=== PATIENT | female | born 1950 | race Caucasian/White ===

== ENCOUNTER 2018-11-19 15:51 | Inpatient (IN) ==
[2018-11-19] MEDS ORDERED: ALBUTEROL NEB SOLN 5 MG/ML 20 ML/BOTTLE CONT NEB STA (17:14)
[2018-11-19] MEDS ORDERED: cefTRIAXone 1,000 MG in SODIUM CHLORIDE 0.9% 100 ML IV STA (17:15)
[2018-11-19] MEDS ORDERED: AZITHROMYCIN INJ 500 MG in SODIUM CHLORIDE 0.9% 250 ML IV STA (17:15)
[2018-11-19 18:01] LABS: Basophils % 0.1 % (0.0-0.8); Eosinophils # 0.1 10*3/uL (0.0-0.87); Eosinophils % 0.4 % (0.00-10.9); Hematocrit 28.3 VOL% (35.7-47.0); Immature Granulocytes % 1.2 %; Immature Granulocytes Absolute 0.16 #; Lymphocytes # 1.4 10*3/uL (1.4-4.0); Lymphocytes % 10.4 % (21.3-54.2); Mean Corpuscular HGB Conc 28.3 GM/DL (32-36); Mean Corpuscular Volume 83.7 FL (87-102); Mean Platelet Volume 10.3 FL (9.6-12.0); NRBC # 0.04 10*3/uL; Neutrophils % 81.9 % (38.7-73.9); Platelet Count 407 T/CUMM (130-400); Red Blood Count 3.38 MC/CUMM (3.8-5.5); Red Cell Distribution Width 17.1 % (9.3-17.3); White Blood Count 13.8 T/CUMM (4-12)
[2018-11-19 18:20] LABS: INR 1.1; PT Patient Result 11.4 SECS; Partial Thromboplastin Time 28.5 SECS (0-40)
[2018-11-19 18:35] LABS: Alanine Aminotransferase 165 U/L (13-56); Albumin 3.1 G/DL (3.4-5.0); Alkaline Phosphatase 137 U/L (45-117); Amylase 33 U/L (25-115); Aspartate Amino Transferase 232 U/L (0-37); Blood Urea Nitrogen 26 MG/DL (7-18); Calcium 9.6 MG/DL (8.5-10.1); Free T4 (Free Thyroxine) 0.85 NG/DL (0.76-1.46); Glucose 225 MG/DL (74-106); Osmolality,Calculated 286.7 MOS/KG (273-304); Total Protein 7.2 G/DL (6.4-8.3)
[2018-11-19 18:37] LABS: Troponin I 0.196 NG/ML (0.00-0.045)
[2018-11-19] MEDS ORDERED: FUROSEMIDE 40 MG/4 ML VIAL IV STA (19:02)
[2018-11-19 19:12] LABS: Barbiturates Screen,Urine Negative (Negative); Benzodiazepines Screen,Urine Negative (Negative); Cannabinoid Screen,Urine Negative (Negative); Opiate Screen,Urine Positive (Negative); Phencyclidine Screen,Urine Negative (Negative)
[2018-11-19 19:20] LABS: Apearance,Urine CLEAR (Clear); Bacteria,Urine Occasional /HPF (Few); Bilirubin,Urine Negative (Negative); Blood, Urine Small mg/dL (Negative); Glucose,Urine (UA) 50 mg/dL (Negative); Ketones,Urine 5 mg/dL (Negative); Mucus,Urine Occasional /LPF (Occasional); Nitrite,Urine Negative (Negative); Protein,Urine Negative; Squamous Epithelial Cell,Urine Occasional /HPF (0-10); Urine Color Straw (Yellow); Urine Urobilinogen < 2.0 EU/DL (0.2-1.0); WBC,Urine 1 /HPF (0-6)
[2018-11-19 19:58] LABS: Polychromasia 1+
[2018-11-19 19:59] LABS: Hypochromasia 2+; Poikilocytosis 2+
[2018-11-19 20:00] LABS: Ovalocytes 1+; Platelet Estimate Normal
[2018-11-19 20:01] LABS: Anisocytosis 2+
[2018-11-19] MEDS ORDERED: INSULIN GLARGINE 40 UNIT SUBCUT SCH (21:00)
[2018-11-19] MEDS ORDERED: ALBUTEROL/IPRATROPIUM 3 ML NEB RESP TX PRN (21:03)
[2018-11-19] MEDS ORDERED: GLUCAGON 1 MG VIAL IM PRN (21:05)
[2018-11-19] MEDS ORDERED: ACETAMINOPHEN 325 MG TABLET PO PRN (21:05)
[2018-11-19] MEDS ORDERED: DEXTROSE 50% 25 GM/50 ML SYRINGE IV PRN (21:05)
[2018-11-19] MEDS: GABAPENTIN 300 MG CAPSULE PO SCH (23:24)
[2018-11-19] MEDS: LEVOFLOXACIN INJ 750 MG in PREMIX 1 EACH IV SCH (23:24)
[2018-11-19] MEDS: ATORVASTATIN 20 MG TABLET PO SCH (23:25)
[2018-11-19] MEDS: ATENOLOL 50 MG TABLET PO SCH (23:25)
[2018-11-19] MEDS: FLECAINIDE 50 MG TABLET PO SCH (23:26)
[2018-11-19] MEDS: PROMETHAZINE 25 MG TABLET PO PRN (23:32)
[2018-11-20] MEDS: INSULIN LISPRO 100 UNIT/ML SUBCUT SCH ×6 (01:01→20:54)
[2018-11-20 07:04] LABS: Albumin 2.7 G/DL (3.4-5.0); Bilirubin,Total 0.6 MG/DL (0.2-1.0); Calcium 9.1 MG/DL (8.5-10.1); Osmolality,Calculated 283.7 MOS/KG (273-304); Total Protein 6.3 G/DL (6.4-8.3)
[2018-11-20] MEDS: ONDANSETRON 4 MG/2 ML VIAL IV PRN ×2 (07:30→15:59)
[2018-11-20] MEDS: MORPHINE ER 30 MG TABLET PO SCH ×2 (08:41→20:53)
[2018-11-20] MEDS: PANTOPRAZOLE 40 MG TABLET PO SCH (08:42)
[2018-11-20] MEDS: FLECAINIDE 50 MG TABLET PO SCH ×2 (08:42→20:53)
[2018-11-20] MEDS: ATENOLOL 50 MG TABLET PO SCH ×2 (08:42→20:53)
[2018-11-20] MEDS: FUROSEMIDE 40 MG/4 ML VIAL IV SCH ×2 (08:45→15:57)
[2018-11-20] MEDS: TIMOLOL 0.5% OPH SOLN 5 ML BOTTLE BOTH EYES SCH (11:14)
[2018-11-20] MEDS: DILTIAZEM 60 MG TABLET PO SCH ×3 (13:39→20:53)
[2018-11-20] MEDS ORDERED: NITROGLYCERIN SL 0.4 MG TABLET SL PRN (16:03)
[2018-11-20 17:07] LABS: Troponin I 0.103 NG/ML (0.00-0.045)
[2018-11-20] MEDS ORDERED: DIGOXIN 0.5 MG/2 ML AMP IV ONE (17:37)
[2018-11-20] MEDS ORDERED: MORPHINE 4 MG/1 ML VIAL IV ONE (17:56)
[2018-11-20] MEDS: GABAPENTIN 300 MG CAPSULE PO SCH (20:53)
[2018-11-20] MEDS: ATORVASTATIN 20 MG TABLET PO SCH (20:54)
[2018-11-20 22:18] LABS: Troponin I 0.109 NG/ML (0.00-0.045)
[2018-11-21 05:43] LABS: Albumin 2.5 G/DL (3.4-5.0); Bilirubin,Total 0.7 MG/DL (0.2-1.0); Calcium 8.7 MG/DL (8.5-10.1); Osmolality,Calculated 286.5 MOS/KG (273-304); Total Protein 5.7 G/DL (6.4-8.3)
[2018-11-21 06:43] LABS: Basophils % 0.4 % (0.0-0.8); Eosinophils # 0.3 10*3/uL (0.0-0.87); Eosinophils % 3.2 % (0.00-10.9); Hematocrit 24.8 VOL% (35.7-47.0); Hemoglobin 6.7 GM/DL (12.0-16.0); Immature Granulocytes % 0.6 %; Immature Granulocytes Absolute 0.06 #; Lymphocytes # 3.1 10*3/uL (1.4-4.0); Lymphocytes % 30.4 % (21.3-54.2); Mean Corpuscular Volume 84.6 FL (87-102); Mean Platelet Volume 10.4 FL (9.6-12.0); Monocytes % 7.7 % (1.7-12.7); NRBC # 0.14 10*3/uL; Neutrophils % 57.7 % (38.7-73.9); Platelet Count 311 T/CUMM (130-400); Red Blood Count 2.93 MC/CUMM (3.8-5.5); Red Cell Distribution Width 16.9 % (9.3-17.3); White Blood Count 10.3 T/CUMM (4-12)
[2018-11-21] MEDS: INSULIN LISPRO 100 UNIT/ML SUBCUT SCH ×4 (08:00→21:08)
[2018-11-21 08:48] LABS: Hemoglobin 7.9 GM/DL (12.0-16.0)
[2018-11-21 09:10] LABS: % Iron Saturation 5.3 % (18-50)
[2018-11-21] MEDS: MORPHINE ER 30 MG TABLET PO SCH ×2 (09:11→21:08)
[2018-11-21] MEDS: PANTOPRAZOLE 40 MG TABLET PO SCH (09:11)
[2018-11-21] MEDS: FLECAINIDE 50 MG TABLET PO SCH ×2 (09:12→21:07)
[2018-11-21] MEDS: FUROSEMIDE 40 MG/4 ML VIAL IV SCH ×2 (09:12→16:36)
[2018-11-21] MEDS: ATENOLOL 50 MG TABLET PO SCH ×2 (09:12→21:08)
[2018-11-21] MEDS: TIMOLOL 0.5% OPH SOLN 5 ML BOTTLE BOTH EYES SCH (09:16)
[2018-11-21] MEDS: DILTIAZEM 60 MG TABLET PO SCH ×4 (09:17→21:07)
[2018-11-21 09:21] LABS: Hypochromasia 3+; Microcytosis 1+; Ovalocytes Slight; Platelet Estimate Normal; Polychromasia Slight
[2018-11-21 09:26] LABS: Folate 15.8 NG/ML (5.4-24.0)
[2018-11-21] MEDS: ONDANSETRON 4 MG/2 ML VIAL IV PRN ×2 (13:36→22:37)
[2018-11-21] MEDS: ATORVASTATIN 20 MG TABLET PO SCH (21:07)
[2018-11-21] MEDS: GABAPENTIN 300 MG CAPSULE PO SCH (21:08)
[2018-11-21] MEDS: APIXABAN 5 MG TABLET PO SCH (21:09)
[2018-11-21] MEDS: LEVOFLOXACIN INJ 750 MG in PREMIX 1 EACH IV SCH (21:25)
[2018-11-22 03:27] LABS: Basophils % 0.4 % (0.0-0.8); Eosinophils # 0.4 10*3/uL (0.0-0.87); Eosinophils % 4.2 % (0.00-10.9); Immature Granulocytes % 0.7 %; Immature Granulocytes Absolute 0.07 #; Lymphocytes # 3.1 10*3/uL (1.4-4.0); Lymphocytes % 31.4 % (21.3-54.2); Mean Corpuscular HGB Conc 27.2 GM/DL (32-36); Mean Corpuscular Volume 83.5 FL (87-102); Mean Platelet Volume 10.7 FL (9.6-12.0); Monocytes % 11.2 % (1.7-12.7); NRBC # 0.06 10*3/uL; Neutrophils % 52.1 % (38.7-73.9); Platelet Count 292 T/CUMM (130-400); Red Blood Count 2.78 MC/CUMM (3.8-5.5); Red Cell Distribution Width 16.8 % (9.3-17.3); White Blood Count 9.7 T/CUMM (4-12)
[2018-11-22 03:40] LABS: Albumin 2.2 G/DL (3.4-5.0); Bilirubin,Total 0.5 MG/DL (0.2-1.0); Calcium 8.3 MG/DL (8.5-10.1); Osmolality,Calculated 278.2 MOS/KG (273-304); Total Protein 5.4 G/DL (6.4-8.3)
[2018-11-22 03:55] LABS: Hematocrit 22.6 VOL% (35.7-47.0)
[2018-11-22 03:58] LABS: Hemoglobin 6.3 GM/DL (12.0-16.0)
[2018-11-22] MEDS ORDERED: SODIUM CHLORIDE 0.9% 1,000 ML IV PRN (06:59)
[2018-11-22] MEDS: ONDANSETRON 4 MG/2 ML VIAL IV PRN (09:23)
[2018-11-22] MEDS: INSULIN LISPRO 100 UNIT/ML SUBCUT SCH ×4 (09:23→21:27)
[2018-11-22] MEDS: FUROSEMIDE 40 MG/4 ML VIAL IV SCH ×2 (09:24→16:30)
[2018-11-22] MEDS: DILTIAZEM 60 MG TABLET PO SCH ×4 (09:25→21:22)
[2018-11-22] MEDS: TIMOLOL 0.5% OPH SOLN 5 ML BOTTLE BOTH EYES SCH (09:25)
[2018-11-22] MEDS: MORPHINE ER 30 MG TABLET PO SCH ×2 (09:25→21:23)
[2018-11-22] MEDS: ATENOLOL 50 MG TABLET PO SCH ×2 (09:26→21:23)
[2018-11-22] MEDS: PANTOPRAZOLE 40 MG TABLET PO SCH (09:26)
[2018-11-22] MEDS: FLECAINIDE 50 MG TABLET PO SCH ×2 (09:26→21:23)
[2018-11-22] MEDS: APIXABAN 5 MG TABLET PO SCH ×2 (09:26→21:23)
[2018-11-22 15:01] LABS: Hematocrit 26.7 VOL% (35.7-47.0); Hemoglobin 7.6 GM/DL (12.0-16.0)
[2018-11-22] MEDS: GABAPENTIN 300 MG CAPSULE PO SCH (21:22)
[2018-11-22] MEDS: ATORVASTATIN 20 MG TABLET PO SCH (21:23)
[2018-11-23 05:40] LABS: Calcium 8.6 MG/DL (8.5-10.1); Osmolality,Calculated 286.4 MOS/KG (273-304)
[2018-11-23 07:41] LABS: Basophils % 0.3 % (0.0-0.8); Eosinophils # 0.4 10*3/uL (0.0-0.87); Eosinophils % 3.5 % (0.00-10.9); Hematocrit 26.4 VOL% (35.7-47.0); Hemoglobin 7.6 GM/DL (12.0-16.0); Immature Granulocytes % 0.7 %; Immature Granulocytes Absolute 0.07 #; Lymphocytes # 2.5 10*3/uL (1.4-4.0); Lymphocytes % 23.2 % (21.3-54.2); Mean Corpuscular HGB Conc 28.8 GM/DL (32-36); Mean Platelet Volume 10.8 FL (9.6-12.0); Monocytes % 8.5 % (1.7-12.7); NRBC # 0.04 10*3/uL; Neutrophils % 63.8 % (38.7-73.9); Platelet Count 257 T/CUMM (130-400); Red Blood Count 3.18 MC/CUMM (3.8-5.5); Red Cell Distribution Width 16.3 % (9.3-17.3); White Blood Count 10.6 T/CUMM (4-12)
[2018-11-23 08:07] LABS: Hypochromasia 1+; Microcytosis 1+
[2018-11-23 08:08] LABS: Ovalocytes Slight
[2018-11-23 08:09] LABS: Platelet Estimate Normal; Polychromasia Slight; Tear Drop Cells Slight
[2018-11-23] MEDS: INSULIN LISPRO 100 UNIT/ML SUBCUT SCH ×5 (09:17→20:52)
[2018-11-23] MEDS: FUROSEMIDE 40 MG/4 ML VIAL IV SCH ×2 (10:36→20:51)
[2018-11-23] MEDS: TIMOLOL 0.5% OPH SOLN 5 ML BOTTLE BOTH EYES SCH (10:37)
[2018-11-23] MEDS: MORPHINE ER 30 MG TABLET PO SCH ×2 (10:37→20:55)
[2018-11-23] MEDS: ATENOLOL 50 MG TABLET PO SCH ×2 (10:37→20:54)
[2018-11-23] MEDS: DILTIAZEM 60 MG TABLET PO SCH ×4 (10:38→20:54)
[2018-11-23] MEDS: PANTOPRAZOLE 40 MG TABLET PO SCH (10:38)
[2018-11-23] MEDS: IRON SUCROSE 200 MG in SODIUM CHLORIDE 0.9% 100 ML IV SCH (10:56)
[2018-11-23] MEDS: ONDANSETRON 4 MG/2 ML VIAL IV PRN ×3 (10:57→22:07)
[2018-11-23] MEDS ORDERED: SODIUM CHLORIDE 0.9% 1,000 ML IV PRN (15:08)
[2018-11-23] MEDS: LEVOFLOXACIN INJ 750 MG in PREMIX 1 EACH IV SCH (20:50)
[2018-11-23] MEDS: INSULIN GLARGINE 100 UNIT/ML SUBCUT SCH (20:52)
[2018-11-23] MEDS: GABAPENTIN 300 MG CAPSULE PO SCH (20:53)
[2018-11-23] MEDS: ATORVASTATIN 20 MG TABLET PO SCH (20:54)
[2018-11-23 23:54] LABS: Hematocrit 30.5 VOL% (35.7-47.0); Hemoglobin 8.9 GM/DL (12.0-16.0)
[2018-11-24 05:47] LABS: Basophils % 0.3 % (0.0-0.8); Eosinophils # 0.3 10*3/uL (0.0-0.87); Eosinophils % 2.7 % (0.00-10.9); Hematocrit 32.2 VOL% (35.7-47.0); Hemoglobin 9.4 GM/DL (12.0-16.0); Immature Granulocytes % 0.7 %; Immature Granulocytes Absolute 0.09 #; Lymphocytes # 2.4 10*3/uL (1.4-4.0); Lymphocytes % 19.2 % (21.3-54.2); Mean Corpuscular HGB Conc 29.2 GM/DL (32-36); Mean Corpuscular Volume 86.6 FL (87-102); Mean Platelet Volume 11.3 FL (9.6-12.0); Monocytes % 8.8 % (1.7-12.7); NRBC # 0.08 10*3/uL; Neutrophils % 68.3 % (38.7-73.9); Platelet Count 266 T/CUMM (130-400); Red Blood Count 3.72 MC/CUMM (3.8-5.5); Red Cell Distribution Width 16.7 % (9.3-17.3); White Blood Count 12.5 T/CUMM (4-12)
[2018-11-24 06:08] LABS: Calcium 8.6 MG/DL (8.5-10.1); Osmolality,Calculated 274.4 MOS/KG (273-304)
[2018-11-24] MEDS ORDERED: MAGNESIUM SULF RIDER 2 GM in PREMIX 1 EACH IV PRN (08:22)
[2018-11-24] MEDS: ATENOLOL 50 MG TABLET PO SCH ×2 (08:50→21:19)
[2018-11-24] MEDS: PANTOPRAZOLE 40 MG TABLET PO SCH (08:50)
[2018-11-24] MEDS: MORPHINE ER 30 MG TABLET PO SCH ×2 (08:50→21:19)
[2018-11-24] MEDS: DILTIAZEM 60 MG TABLET PO SCH ×3 (08:50→21:18)
[2018-11-24] MEDS: INSULIN LISPRO 100 UNIT/ML SUBCUT SCH ×4 (08:51→21:20)
[2018-11-24] MEDS: POTASSIUM CHLORIDE 20 MEQ TABLET PO PRN ×2 (08:51→16:09)
[2018-11-24] MEDS: FUROSEMIDE 40 MG/4 ML VIAL IV SCH ×2 (08:52→16:09)
[2018-11-24] MEDS: IRON SUCROSE 200 MG in SODIUM CHLORIDE 0.9% 100 ML IV SCH (08:54)
[2018-11-24] MEDS: TIMOLOL 0.5% OPH SOLN 5 ML BOTTLE BOTH EYES SCH (08:56)
[2018-11-24] MEDS: ONDANSETRON 4 MG/2 ML VIAL IV PRN (08:56)
[2018-11-24] MEDS ORDERED: POTASSIUM CHLORIDE 20 MEQ TABLET PO ONE (10:34)
[2018-11-24] MEDS ORDERED: POTASSIUM CHLORIDE 20 MEQ TABLET PO SCH (21:00)
[2018-11-24] MEDS: ATORVASTATIN 10 MG TABLET PO SCH (21:18)
[2018-11-24] MEDS: GABAPENTIN 300 MG CAPSULE PO SCH (21:19)
[2018-11-24] MEDS: INSULIN GLARGINE 100 UNIT/ML SUBCUT SCH (21:19)
[2018-11-25 05:22] LABS: Calcium 9.2 MG/DL (8.5-10.1); Osmolality,Calculated 289.7 MOS/KG (273-304)
[2018-11-25 07:56] LABS: Basophils % 0.3 % (0.0-0.8); Eosinophils # 0.2 10*3/uL (0.0-0.87); Eosinophils % 1.5 % (0.00-10.9); Hematocrit 31.6 VOL% (35.7-47.0); Hemoglobin 9.3 GM/DL (12.0-16.0); Immature Granulocytes % 0.8 %; Immature Granulocytes Absolute 0.08 #; Lymphocytes % 20.4 % (21.3-54.2); Mean Corpuscular HGB Conc 29.4 GM/DL (32-36); Mean Corpuscular Volume 85.2 FL (87-102); Mean Platelet Volume 11.1 FL (9.6-12.0); Monocytes % 9.5 % (1.7-12.7); NRBC # 0.03 10*3/uL; Neutrophils % 67.5 % (38.7-73.9); Platelet Count 256 T/CUMM (130-400); Red Blood Count 3.71 MC/CUMM (3.8-5.5); Red Cell Distribution Width 17.2 % (9.3-17.3); White Blood Count 9.8 T/CUMM (4-12)
[2018-11-25] MEDS ORDERED: LACTATED RINGERS 1,000 ML IV SCH (08:00)
[2018-11-25] MEDS ORDERED: LACTATED RINGERS 500 ML IV SCH (08:00)
[2018-11-25] MEDS: ATENOLOL 50 MG TABLET PO SCH (08:27)
[2018-11-25] MEDS: FUROSEMIDE 40 MG/4 ML VIAL IV SCH (08:28)
[2018-11-25] MEDS: IRON SUCROSE 200 MG in SODIUM CHLORIDE 0.9% 100 ML IV SCH (08:30)
[2018-11-25] MEDS: MORPHINE ER 30 MG TABLET PO SCH (08:34)
[2018-11-25] MEDS: TIMOLOL 0.5% OPH SOLN 5 ML BOTTLE BOTH EYES SCH (08:34)
[2018-11-25] MEDS: PANTOPRAZOLE 40 MG TABLET PO SCH (08:34)
[2018-11-25] MEDS: INSULIN LISPRO 100 UNIT/ML SUBCUT SCH ×3 (08:34→16:07)
[2018-11-25] MEDS ORDERED: DILTIAZEM 60 MG TABLET PO SCH (09:00)
[2018-11-25] MEDS: DILTIAZEM CD 120 MG CAPSULE PO SCH (09:35)
[2018-11-25] MEDS ORDERED: LIDOCAINE 2% 5 ML VIAL ONE (10:00)
[2018-11-25] MEDS ORDERED: ONDANSETRON 4 MG/2 ML VIAL ONE (10:00)
[2018-11-25] MEDS ORDERED: PROPOFOL 200 MG/20 ML VIAL IV ONE (10:00)
[2018-11-26] MEDS: INSULIN LISPRO 100 UNIT/ML SUBCUT SCH ×5 (00:32→21:49)
[2018-11-26] MEDS: INSULIN GLARGINE 100 UNIT/ML SUBCUT SCH ×2 (00:32→21:49)
[2018-11-26] MEDS: ATORVASTATIN 10 MG TABLET PO SCH ×2 (00:33→21:50)
[2018-11-26] MEDS: MORPHINE ER 30 MG TABLET PO SCH ×3 (00:33→21:50)
[2018-11-26] MEDS: GABAPENTIN 300 MG CAPSULE PO SCH ×2 (00:33→21:50)
[2018-11-26] MEDS: LEVOFLOXACIN INJ 750 MG in PREMIX 1 EACH IV SCH (00:34)
[2018-11-26] MEDS: DILTIAZEM CD 120 MG CAPSULE PO SCH (08:21)
[2018-11-26] MEDS: PANTOPRAZOLE 40 MG TABLET PO SCH (08:21)
[2018-11-26] MEDS: ATENOLOL 50 MG TABLET PO SCH (08:21)
[2018-11-26] MEDS: FUROSEMIDE 20 MG TABLET PO SCH (08:22)
[2018-11-26] MEDS: TIMOLOL 0.5% OPH SOLN 5 ML BOTTLE BOTH EYES SCH (08:24)
[2018-11-26] MEDS ORDERED: FUROSEMIDE 40 MG TABLET PO SCH (09:00)
[2018-11-26] MEDS: PROMETHAZINE 25 MG TABLET PO PRN (09:17)
[2018-11-26] MEDS: IRON SUCROSE 200 MG in SODIUM CHLORIDE 0.9% 100 ML IV SCH (09:53)
[2018-11-27] MEDS: FUROSEMIDE 20 MG TABLET PO SCH (08:37)
[2018-11-27] MEDS: MORPHINE ER 30 MG TABLET PO SCH (08:37)
[2018-11-27] MEDS: DILTIAZEM CD 120 MG CAPSULE PO SCH (08:38)
[2018-11-27] MEDS: PANTOPRAZOLE 40 MG TABLET PO SCH (08:39)
[2018-11-27] MEDS: ATENOLOL 50 MG TABLET PO SCH (08:39)
[2018-11-27] MEDS: INSULIN LISPRO 100 UNIT/ML SUBCUT SCH ×3 (08:39→15:58)
[2018-11-27] MEDS: TIMOLOL 0.5% OPH SOLN 5 ML BOTTLE BOTH EYES SCH (08:43)
[2018-11-27] MEDS: IRON SUCROSE 200 MG in SODIUM CHLORIDE 0.9% 100 ML IV SCH (08:44)
[2018-11-27 16:07] VITALS: BP 133/86
== END 2018-11-27 18:15 | disposition home health service (06) | DRG 871 ==
LOC: EDBD → EDUNIT# → N.ED 15:51 → SUPCPDRO 20:03 → N.EDINP 20:03 → SUATTDRO 20:03 → N.TELEN 21:40
PROVIDERS: ADMIT Internal Medicine; ATTEND Internal Medicine

== ENCOUNTER 2019-05-17 09:19 | Inpatient (IN) ==
[2019-05-17] MEDS ORDERED: FUROSEMIDE 100 MG/10 ML VIAL IV STA (09:41)
[2019-05-17 10:00] LABS: Basophils % 0.2 % (0.0-0.8); Eosinophils % 0.1 % (0.00-10.9); Hematocrit 35.8 VOL% (35.7-47.0); Hemoglobin 10.6 GM/DL (12.0-16.0); Immature Granulocytes % 2.9 %; Immature Granulocytes Absolute 0.42 #; Lymphocytes # 1.9 10*3/uL (1.4-4.0); Lymphocytes % 13.1 % (21.3-54.2); Mean Corpuscular HGB Conc 29.6 GM/DL (32-36); Mean Platelet Volume 9.7 FL (9.6-12.0); Monocytes % 4.4 % (1.7-12.7); Neutrophils % 79.3 % (38.7-73.9); Platelet Count 315 T/CUMM (130-400); Red Blood Count 3.85 MC/CUMM (3.8-5.5); Red Cell Distribution Width 15.8 % (9.3-17.3); White Blood Count 14.3 T/CUMM (4-12)
[2019-05-17 10:18] LABS: Albumin 3.4 G/DL (3.4-5.0); Bilirubin,Total 0.7 MG/DL (0.2-1.0); Calcium 9.3 MG/DL (8.5-10.1); Total Protein 6.3 G/DL (6.4-8.3)
[2019-05-17 10:20] LABS: Apearance,Urine CLEAR (Clear); Bilirubin,Urine Negative (Negative); Blood, Urine Negative (Negative); Glucose,Urine (UA) Negative (Negative); Ketones,Urine Negative (Negative); Mucus,Urine Occasional /LPF (Occasional); Nitrite,Urine Negative (Negative); Protein,Urine 30 MG/DL; Squamous Epithelial Cell,Urine Occasional /HPF (0-10); Urine Color Yellow (Yellow); Urine Specific Gravity 1.025 (1.001-1.035); Urine Urobilinogen < 2.0 EU/DL (0.2-1.0); WBC,Urine 1 /HPF (0-6)
[2019-05-17] MEDS ORDERED: DEXTROSE 5% NACL 0.9% 1,000 ML IV SCH (10:30)
[2019-05-17] MEDS ORDERED: ONDANSETRON 4 MG/2 ML VIAL IV PRN (12:03)
[2019-05-17] MEDS ORDERED: ACETAMINOPHEN 325 MG TABLET PO PRN (12:03)
[2019-05-17] MEDS ORDERED: NYSTATIN 500,000 UNIT/5 ML UDCUP SWISH/SWAL STA (13:27)
[2019-05-17] MEDS ORDERED: DEXTROSE 10% 25 GM/250 ML BAG IV PRN (16:50)
[2019-05-17] MEDS ORDERED: GLUCAGON 1 MG VIAL IM PRN (16:50)
[2019-05-17] MEDS ORDERED: cefTRIAXone 1,000 MG in SODIUM CHLORIDE 0.9% 100 ML IV SCH (17:00)
[2019-05-17] MEDS ORDERED: AZITHROMYCIN INJ 500 MG in SODIUM CHLORIDE 0.9% 250 ML IV SCH (17:00)
[2019-05-17] MEDS ORDERED: NITROGLYCERIN SL 0.4 MG TABLET SL PRN (17:12)
[2019-05-17] MEDS ORDERED: ALBUTEROL 2.5 MG/3 ML NEB RESP TX PRN ×2 (17:12→17:30)
[2019-05-17] MEDS: ATENOLOL 50 MG TABLET PO SCH (20:48)
[2019-05-17] MEDS: APIXABAN 5 MG TABLET PO SCH (20:49)
[2019-05-17] MEDS: INSULIN LISPRO 100 UNIT/ML SUBCUT SCH (21:23)
[2019-05-18 04:11] LABS: Basophils % 0.1 % (0.0-0.8); Eosinophils % 0.1 % (0.00-10.9); Hematocrit 31.1 VOL% (35.7-47.0); Hemoglobin 9.1 GM/DL (12.0-16.0); Immature Granulocytes % 1.5 %; Immature Granulocytes Absolute 0.11 #; Lymphocytes # 1.4 10*3/uL (1.4-4.0); Lymphocytes % 18.9 % (21.3-54.2); Mean Corpuscular HGB Conc 29.3 GM/DL (32-36); Mean Corpuscular Volume 95.1 FL (87-102); Mean Platelet Volume 10.1 FL (9.6-12.0); Monocytes % 7.8 % (1.7-12.7); Neutrophils % 71.6 % (38.7-73.9); Platelet Count 195 T/CUMM (130-400); Red Blood Count 3.27 MC/CUMM (3.8-5.5); Red Cell Distribution Width 15.9 % (9.3-17.3); White Blood Count 7.3 T/CUMM (4-12)
[2019-05-18 04:22] LABS: Calcium 8.3 MG/DL (8.5-10.1); Osmolality,Calculated 298.4 MOS/KG (273-304); Risk Ratio 2.83; VLDL CHOLESTEROL 47.8 MG/DL
[2019-05-18 04:29] LABS: Hypochromasia 2+; Ovalocytes 1+; Platelet Estimate Normal; Tear Drop Cells Few
[2019-05-18] MEDS ORDERED: predniSONE 20 MG TABLET PO SCH (08:00)
[2019-05-18] MEDS: AMIODARONE 200 MG TABLET PO SCH (09:59)
[2019-05-18] MEDS: ATENOLOL 50 MG TABLET PO SCH ×2 (10:00→20:14)
[2019-05-18] MEDS: INSULIN LISPRO 100 UNIT/ML SUBCUT SCH ×4 (10:01→20:16)
[2019-05-18] MEDS: FUROSEMIDE 40 MG/4 ML VIAL IV SCH ×2 (10:01→16:23)
[2019-05-18] MEDS: APIXABAN 5 MG TABLET PO SCH ×2 (10:01→20:14)
[2019-05-18] MEDS: PANTOPRAZOLE 40 MG TABLET PO SCH (10:01)
[2019-05-18] MEDS: AZITHROMYCIN INJ 500 MG in SODIUM CHLORIDE 0.9% 250 ML IV SCH (10:02)
[2019-05-18] MEDS: TIMOLOL 0.5% OPH SOLN 5 ML BOTTLE BOTH EYES SCH (10:15)
[2019-05-18] MEDS: cefTRIAXone 1,000 MG in SYRINGE 1 EACH IV SCH (10:16)
[2019-05-18] MEDS: ALBUTEROL/IPRATROPIUM 3 ML NEB RESP TX SCH (19:18)
[2019-05-18] MEDS: INSULIN GLARGINE 100 UNIT/ML SUBCUT SCH (20:15)
[2019-05-19] MEDS: ALBUTEROL/IPRATROPIUM 3 ML NEB RESP TX SCH ×6 (00:46→18:50)
[2019-05-19 03:37] LABS: Basophils % 0.1 % (0.0-0.8); Eosinophils % 0.1 % (0.00-10.9); Hemoglobin 9.8 GM/DL (12.0-16.0); Immature Granulocytes % 1.9 %; Immature Granulocytes Absolute 0.18 #; Lymphocytes # 1.7 10*3/uL (1.4-4.0); Lymphocytes % 18.7 % (21.3-54.2); Mean Corpuscular HGB Conc 29.7 GM/DL (32-36); Mean Corpuscular Volume 91.9 FL (87-102); Mean Platelet Volume 9.6 FL (9.6-12.0); Neutrophils % 72.2 % (38.7-73.9); Platelet Count 206 T/CUMM (130-400); Red Blood Count 3.59 MC/CUMM (3.8-5.5); Red Cell Distribution Width 15.5 % (9.3-17.3); White Blood Count 9.2 T/CUMM (4-12)
[2019-05-19 03:50] LABS: Calcium 8.7 MG/DL (8.5-10.1); Osmolality,Calculated 291.7 MOS/KG (273-304)
[2019-05-19 04:00] LABS: Free T4 (Free Thyroxine) 0.7 NG/DL (0.76-1.46); Thyroid Stimulating Hormone 0.64 uIU/ml (0.358-3.74)
[2019-05-19] MEDS: INSULIN LISPRO 100 UNIT/ML SUBCUT SCH ×4 (08:33→21:03)
[2019-05-19] MEDS: APIXABAN 5 MG TABLET PO SCH ×2 (09:28→21:04)
[2019-05-19] MEDS: ATENOLOL 50 MG TABLET PO SCH ×2 (09:29→21:04)
[2019-05-19] MEDS: PANTOPRAZOLE 40 MG TABLET PO SCH (09:29)
[2019-05-19] MEDS: AMIODARONE 200 MG TABLET PO SCH (09:29)
[2019-05-19] MEDS: predniSONE 10 MG TABLET PO SCH (09:29)
[2019-05-19] MEDS: cefTRIAXone 1,000 MG in SYRINGE 1 EACH IV SCH (09:30)
[2019-05-19] MEDS: AZITHROMYCIN INJ 500 MG in SODIUM CHLORIDE 0.9% 250 ML IV SCH (09:30)
[2019-05-19] MEDS: FUROSEMIDE 40 MG/4 ML VIAL IV SCH ×2 (09:30→16:32)
[2019-05-19] MEDS: TIMOLOL 0.5% OPH SOLN 5 ML BOTTLE BOTH EYES SCH (09:31)
[2019-05-19] MEDS: NYSTATIN 500,000 UNIT/5 ML UDCUP SWISH/SWAL SCH ×2 (16:31→21:03)
[2019-05-19] MEDS: INSULIN GLARGINE 100 UNIT/ML SUBCUT SCH (21:03)
[2019-05-20] MEDS: ALBUTEROL/IPRATROPIUM 3 ML NEB RESP TX SCH ×7 (00:02→23:39)
[2019-05-20 08:47] LABS: Basophils % 0.1 % (0.0-0.8); Eosinophils # 0.1 10*3/uL (0.0-0.87); Eosinophils % 0.6 % (0.00-10.9); Hematocrit 36.8 VOL% (35.7-47.0); Immature Granulocytes % 1.5 %; Immature Granulocytes Absolute 0.16 #; Lymphocytes # 2.4 10*3/uL (1.4-4.0); Lymphocytes % 22.6 % (21.3-54.2); Mean Corpuscular HGB Conc 29.9 GM/DL (32-36); Mean Platelet Volume 9.5 FL (9.6-12.0); Monocytes % 7.2 % (1.7-12.7); Platelet Count 229 T/CUMM (130-400); Red Cell Distribution Width 15.4 % (9.3-17.3); White Blood Count 10.6 T/CUMM (4-12)
[2019-05-20 08:55] LABS: Calcium 8.9 MG/DL (8.5-10.1)
[2019-05-20] MEDS: PANTOPRAZOLE 40 MG TABLET PO SCH (09:31)
[2019-05-20] MEDS: AMIODARONE 200 MG TABLET PO SCH (09:31)
[2019-05-20] MEDS: predniSONE 10 MG TABLET PO SCH (09:31)
[2019-05-20] MEDS: INSULIN LISPRO 100 UNIT/ML SUBCUT SCH ×4 (09:31→21:04)
[2019-05-20] MEDS: FUROSEMIDE 40 MG/4 ML VIAL IV SCH ×2 (09:31→16:30)
[2019-05-20] MEDS: ATENOLOL 50 MG TABLET PO SCH ×2 (09:31→21:04)
[2019-05-20] MEDS: NYSTATIN 500,000 UNIT/5 ML UDCUP SWISH/SWAL SCH ×4 (09:32→21:03)
[2019-05-20] MEDS: cefTRIAXone 1,000 MG in SYRINGE 1 EACH IV SCH (09:32)
[2019-05-20] MEDS: TIMOLOL 0.5% OPH SOLN 5 ML BOTTLE BOTH EYES SCH (09:40)
[2019-05-20] MEDS: AZITHROMYCIN INJ 500 MG in SODIUM CHLORIDE 0.9% 250 ML IV SCH (09:40)
[2019-05-20] MEDS: INSULIN GLARGINE 100 UNIT/ML SUBCUT SCH (21:04)
[2019-05-21] MEDS: ALBUTEROL/IPRATROPIUM 3 ML NEB RESP TX SCH ×5 (03:20→21:10)
[2019-05-21 05:30] LABS: Basophils % 0.1 % (0.0-0.8); Eosinophils # 0.1 10*3/uL (0.0-0.87); Eosinophils % 0.7 % (0.00-10.9); Hematocrit 33.5 VOL% (35.7-47.0); Hemoglobin 10.1 GM/DL (12.0-16.0); Immature Granulocytes % 1.8 %; Immature Granulocytes Absolute 0.15 #; Lymphocytes # 1.6 10*3/uL (1.4-4.0); Lymphocytes % 18.7 % (21.3-54.2); Mean Corpuscular HGB Conc 30.1 GM/DL (32-36); Mean Platelet Volume 9.5 FL (9.6-12.0); Monocytes % 7.2 % (1.7-12.7); Neutrophils % 71.5 % (38.7-73.9); Platelet Count 199 T/CUMM (130-400); Red Blood Count 3.68 MC/CUMM (3.8-5.5); Red Cell Distribution Width 15.4 % (9.3-17.3); White Blood Count 8.4 T/CUMM (4-12)
[2019-05-21 05:50] LABS: Calcium 8.9 MG/DL (8.5-10.1); Osmolality,Calculated 302.5 MOS/KG (273-304)
[2019-05-21] MEDS: AMIODARONE 200 MG TABLET PO SCH (09:57)
[2019-05-21] MEDS: PANTOPRAZOLE 40 MG TABLET PO SCH (09:57)
[2019-05-21] MEDS: ATENOLOL 50 MG TABLET PO SCH ×2 (09:58→21:40)
[2019-05-21] MEDS: INSULIN LISPRO 100 UNIT/ML SUBCUT SCH ×4 (09:58→21:39)
[2019-05-21] MEDS: FUROSEMIDE 40 MG/4 ML VIAL IV SCH ×2 (09:58→17:04)
[2019-05-21] MEDS: predniSONE 10 MG TABLET PO SCH (09:58)
[2019-05-21] MEDS: NYSTATIN 500,000 UNIT/5 ML UDCUP SWISH/SWAL SCH ×4 (09:59→21:41)
[2019-05-21] MEDS: cefTRIAXone 1,000 MG in SYRINGE 1 EACH IV SCH (09:59)
[2019-05-21] MEDS: AZITHROMYCIN INJ 500 MG in SODIUM CHLORIDE 0.9% 250 ML IV SCH (09:59)
[2019-05-21] MEDS: TIMOLOL 0.5% OPH SOLN 5 ML BOTTLE BOTH EYES SCH (10:00)
[2019-05-21] MEDS: INSULIN GLARGINE 100 UNIT/ML SUBCUT SCH (21:39)
[2019-05-22] MEDS: ALBUTEROL/IPRATROPIUM 3 ML NEB RESP TX SCH ×6 (00:33→19:57)
[2019-05-22 05:59] LABS: Calcium 9.2 MG/DL (8.5-10.1); Osmolality,Calculated 294.7 MOS/KG (273-304)
[2019-05-22 06:33] LABS: Basophils % 0.1 % (0.0-0.8); Eosinophils # 0.1 10*3/uL (0.0-0.87); Eosinophils % 0.6 % (0.00-10.9); Hemoglobin 10.5 GM/DL (12.0-16.0); Immature Granulocytes Absolute 0.19 #; Lymphocytes # 1.8 10*3/uL (1.4-4.0); Lymphocytes % 19.4 % (21.3-54.2); Mean Corpuscular Volume 91.6 FL (87-102); Mean Platelet Volume 9.6 FL (9.6-12.0); Monocytes % 6.1 % (1.7-12.7); Neutrophils % 71.8 % (38.7-73.9); Platelet Count 199 T/CUMM (130-400); Red Blood Count 3.82 MC/CUMM (3.8-5.5); Red Cell Distribution Width 15.4 % (9.3-17.3); White Blood Count 9.4 T/CUMM (4-12)
[2019-05-22] MEDS: AZITHROMYCIN 250 MG TABLET PO SCH (09:50)
[2019-05-22] MEDS: ATENOLOL 50 MG TABLET PO SCH ×2 (09:50→21:18)
[2019-05-22] MEDS: predniSONE 10 MG TABLET PO SCH (09:51)
[2019-05-22] MEDS: AMIODARONE 200 MG TABLET PO SCH (09:51)
[2019-05-22] MEDS: cefTRIAXone 1,000 MG in SYRINGE 1 EACH IV SCH (09:51)
[2019-05-22] MEDS: PANTOPRAZOLE 40 MG TABLET PO SCH (09:51)
[2019-05-22] MEDS: INSULIN LISPRO 100 UNIT/ML SUBCUT SCH ×4 (09:52→21:33)
[2019-05-22] MEDS: NYSTATIN 500,000 UNIT/5 ML UDCUP SWISH/SWAL SCH ×4 (10:00→21:24)
[2019-05-22] MEDS: FUROSEMIDE 40 MG/4 ML VIAL IV SCH (10:05)
[2019-05-22] MEDS: TIMOLOL 0.5% OPH SOLN 5 ML BOTTLE BOTH EYES SCH (10:06)
[2019-05-22] MEDS ORDERED: BISACODYL 5 MG TABLET PO ONE (15:30)
[2019-05-22] MEDS: FUROSEMIDE 40 MG TABLET PO SCH (16:38)
[2019-05-22] MEDS: POLYETHYLENE GLYCOL POWDER 17 GM PACK PO SCH (21:23)
[2019-05-22] MEDS: DOCUSATE SODIUM 100 MG CAPSULE PO SCH (21:24)
[2019-05-22] MEDS: INSULIN GLARGINE 100 UNIT/ML SUBCUT SCH (21:31)
[2019-05-23] MEDS: ALBUTEROL/IPRATROPIUM 3 ML NEB RESP TX SCH ×5 (00:05→16:05)
[2019-05-23 06:29] LABS: Osmolality,Calculated 296.5 MOS/KG (273-304)
[2019-05-23 06:40] LABS: Basophils % 0.1 % (0.0-0.8); Eosinophils # 0.1 10*3/uL (0.0-0.87); Hematocrit 35.9 VOL% (35.7-47.0); Immature Granulocytes Absolute 0.19 #; Lymphocytes # 1.7 10*3/uL (1.4-4.0); Lymphocytes % 17.6 % (21.3-54.2); Mean Corpuscular HGB Conc 29.5 GM/DL (32-36); Mean Corpuscular Volume 92.1 FL (87-102); Monocytes % 6.1 % (1.7-12.7); Neutrophils % 73.2 % (38.7-73.9); Platelet Count 207 T/CUMM (130-400); Red Cell Distribution Width 15.3 % (9.3-17.3); White Blood Count 9.4 T/CUMM (4-12)
[2019-05-23 06:47] LABS: Hemoglobin 10.6 GM/DL (12.0-16.0)
[2019-05-23] MEDS ORDERED: LACTATED RINGERS 1,000 ML IV SCH (08:00)
[2019-05-23] MEDS: INSULIN LISPRO 100 UNIT/ML SUBCUT SCH ×3 (08:23→17:26)
[2019-05-23] MEDS ORDERED: LIDOCAINE 2% 5 ML VIAL ONE (10:00)
[2019-05-23] MEDS ORDERED: PROPOFOL 200 MG/20 ML VIAL IV ONE (10:00)
[2019-05-23 12:24] VITALS: BP 137/84
[2019-05-23] MEDS: AMIODARONE 200 MG TABLET PO SCH (14:20)
[2019-05-23] MEDS: ATENOLOL 50 MG TABLET PO SCH (14:20)
[2019-05-23] MEDS: AZITHROMYCIN 250 MG TABLET PO SCH (14:20)
[2019-05-23] MEDS: DOCUSATE SODIUM 100 MG CAPSULE PO SCH (14:20)
[2019-05-23] MEDS: predniSONE 10 MG TABLET PO SCH (14:21)
[2019-05-23] MEDS: FUROSEMIDE 40 MG TABLET PO SCH ×2 (14:21→17:10)
[2019-05-23] MEDS: cefTRIAXone 1,000 MG in SYRINGE 1 EACH IV SCH (14:21)
[2019-05-23] MEDS: PANTOPRAZOLE 40 MG TABLET PO SCH (14:21)
[2019-05-23] MEDS: TIMOLOL 0.5% OPH SOLN 5 ML BOTTLE BOTH EYES SCH (14:22)
[2019-05-23] MEDS: NYSTATIN 500,000 UNIT/5 ML UDCUP SWISH/SWAL SCH ×3 (14:25→17:28)
[2019-05-23] MEDS: POLYETHYLENE GLYCOL POWDER 17 GM PACK PO SCH (14:26)
== END 2019-05-23 17:35 | disposition home health service (06) | DRG 291 ==
LOC: N.EDINP 09:19 → N.ED 09:19 → N.TELEN 14:51 → SUATTDRO 05-19 13:28
PROVIDERS: ADMIT Internal Medicine; ATTEND Hospitalist

== ENCOUNTER 2019-06-06 19:28 | Inpatient (IN) ==
[2019-06-06 20:21] LABS: Basophils % 0.2 % (0.0-0.8); Monocytes % 8.2 % (1.7-12.7)
[2019-06-06 20:25] LABS: PT Patient Result 10.7 SECS (9.6-12.2)
[2019-06-06 20:38] LABS: Eosinophils # 0.1 10*3/uL (0.0-0.87); Eosinophils % 0.4 % (0.00-10.9); Hematocrit 34.1 VOL% (35.7-47.0); Hemoglobin 9.8 GM/DL (12.0-16.0); Immature Granulocytes % 2.5 %; Immature Granulocytes Absolute 0.32 #; Lymphocytes % 16.2 % (21.3-54.2); Mean Corpuscular HGB Conc 28.7 GM/DL (32-36); Mean Corpuscular Volume 94.2 FL (87-102); Mean Platelet Volume 9.8 FL (9.6-12.0); NRBC # 0.03 10*3/uL; Neutrophils % 72.5 % (38.7-73.9); Platelet Count 261 T/CUMM (130-400); Red Blood Count 3.62 MC/CUMM (3.8-5.5); Red Cell Distribution Width 16.7 % (9.3-17.3); White Blood Count 12.6 T/CUMM (4-12)
[2019-06-06 20:47] LABS: Alanine Aminotransferase 21 U/L (13-56); Albumin 3.2 G/DL (3.4-5.0); Alkaline Phosphatase 91 U/L (45-117); Aspartate Amino Transferase 21 U/L (0-37); Bilirubin,Total < 0.39 MG/DL (0.2-1.0); Blood Urea Nitrogen 32 MG/DL (7-18); Calcium 8.8 MG/DL (8.5-10.1); Estimated Glom Filtration Rate 42 ML/MIN; Glucose 92 MG/DL (74-106); Total Protein 6.1 G/DL (6.4-8.3)
[2019-06-06 21:35] LABS: Apearance,Urine CLEAR (Clear); Bilirubin,Urine Negative (Negative); Blood, Urine Negative (Negative); Glucose,Urine (UA) Negative (Negative); Ketones,Urine Negative (Negative); Nitrite,Urine Negative (Negative); Protein,Urine Negative; RBC,Urine 4 /HPF (0-4); Squamous Epithelial Cell,Urine Occasional /HPF (0-10); Urine Color Yellow (Yellow); Urine Specific Gravity 1.021 (1.001-1.035); Urine Urobilinogen < 2.0 EU/DL (0.2-1.0)
[2019-06-06] MEDS ORDERED: DEXTROSE 10% 250 ML BAG IV PRN (22:44)
[2019-06-06] MEDS ORDERED: ACETAMINOPHEN 325 MG TABLET PO PRN (22:44)
[2019-06-06] MEDS ORDERED: ONDANSETRON 4 MG/2 ML VIAL IV PRN (22:44)
[2019-06-06] MEDS ORDERED: GLUCAGON 1 MG VIAL IM PRN (22:44)
[2019-06-06] MEDS ORDERED: DEXAMETHASONE 4 MG/1 ML VIAL IV STA (22:53)
[2019-06-06] MEDS ORDERED: NITROGLYCERIN SL 0.4 MG TABLET SL PRN (23:13)
[2019-06-07 05:56] LABS: Eosinophils % 0.5 % (0.00-10.9); Hematocrit 28.8 VOL% (35.7-47.0); Hemoglobin 8.5 GM/DL (12.0-16.0); Immature Granulocytes % 1.6 %; Immature Granulocytes Absolute 0.14 #; Lymphocytes # 1.5 10*3/uL (1.4-4.0); Lymphocytes % 17.4 % (21.3-54.2); Mean Corpuscular HGB Conc 29.5 GM/DL (32-36); Mean Corpuscular Volume 92.9 FL (87-102); Monocytes % 7.1 % (1.7-12.7); Neutrophils % 73.4 % (38.7-73.9); Platelet Count 185 T/CUMM (130-400); Red Cell Distribution Width 16.8 % (9.3-17.3); White Blood Count 8.5 T/CUMM (4-12)
[2019-06-07 06:34] LABS: Albumin 2.6 G/DL (3.4-5.0); Bilirubin,Total 0.7 MG/DL (0.2-1.0); Calcium 8.4 MG/DL (8.5-10.1); Osmolality,Calculated 291.7 MOS/KG (273-304); Total Protein 5.5 G/DL (6.4-8.3)
[2019-06-07] MEDS: INSULIN LISPRO 100 UNIT/ML SUBCUT SCH ×4 (08:27→21:23)
[2019-06-07] MEDS ORDERED: ATENOLOL 50 MG TABLET PO SCH (09:00)
[2019-06-07] MEDS: FUROSEMIDE 40 MG/4 ML VIAL IV SCH ×2 (09:19→15:37)
[2019-06-07] MEDS: POLYETHYLENE GLYCOL POWDER 17 GM PACK PO SCH ×2 (09:22→21:24)
[2019-06-07] MEDS: DOCUSATE SODIUM 100 MG CAPSULE PO SCH ×2 (09:22→21:22)
[2019-06-07] MEDS: APIXABAN 5 MG TABLET PO SCH ×2 (09:22→21:23)
[2019-06-07] MEDS: AMIODARONE 200 MG TABLET PO SCH (09:22)
[2019-06-07] MEDS: PANTOPRAZOLE 40 MG TABLET PO SCH (09:22)
[2019-06-07] MEDS: TIMOLOL 0.5% OPH SOLN 5 ML BOTTLE BOTH EYES SCH (09:26)
[2019-06-07] MEDS: NYSTATIN CREAM 15 GM TUBE TOP SCH ×2 (16:41→22:07)
[2019-06-07] MEDS: INSULIN GLARGINE 100 UNIT/ML SUBCUT SCH (21:23)
[2019-06-08 04:41] LABS: Hematocrit 30.4 VOL% (35.7-47.0)
[2019-06-08 05:04] LABS: Albumin 2.6 G/DL (3.4-5.0); Bilirubin,Total 0.5 MG/DL (0.2-1.0); Calcium 8.5 MG/DL (8.5-10.1); Osmolality,Calculated 296.1 MOS/KG (273-304); Total Protein 5.8 G/DL (6.4-8.3)
[2019-06-08] MEDS: INSULIN LISPRO 100 UNIT/ML SUBCUT SCH ×5 (08:13→22:17)
[2019-06-08] MEDS: FUROSEMIDE 40 MG/4 ML VIAL IV SCH ×2 (08:14→17:08)
[2019-06-08] MEDS: TIMOLOL 0.5% OPH SOLN 5 ML BOTTLE BOTH EYES SCH (08:14)
[2019-06-08] MEDS: DOCUSATE SODIUM 100 MG CAPSULE PO SCH ×2 (08:15→22:13)
[2019-06-08] MEDS: PANTOPRAZOLE 40 MG TABLET PO SCH ×2 (08:15→22:14)
[2019-06-08] MEDS: APIXABAN 5 MG TABLET PO SCH ×2 (08:15→22:13)
[2019-06-08] MEDS: ATENOLOL 50 MG TABLET PO SCH ×2 (08:15→22:14)
[2019-06-08] MEDS: NYSTATIN CREAM 15 GM TUBE TOP SCH ×2 (08:16→22:25)
[2019-06-08] MEDS: POLYETHYLENE GLYCOL POWDER 17 GM PACK PO SCH ×2 (08:16→22:13)
[2019-06-08] MEDS: AMIODARONE 200 MG TABLET PO SCH (08:16)
[2019-06-08] MEDS: SUCRALFATE 1 GM/10 ML UDCUP PO SCH ×3 (12:26→22:16)
[2019-06-08 12:59] LABS: Microalbumin 24 Hr Ur Result 59.1 MG/24 (0-30); Total Volume,Urine 7300 ML (400-2000)
[2019-06-08] MEDS: INSULIN GLARGINE 100 UNIT/ML SUBCUT SCH (22:19)
[2019-06-09 05:25] LABS: Basophils % 0.1 % (0.0-0.8); Eosinophils # 0.1 10*3/uL (0.0-0.87); Eosinophils % 0.8 % (0.00-10.9); Hematocrit 31.8 VOL% (35.7-47.0); Hemoglobin 9.5 GM/DL (12.0-16.0); Immature Granulocytes % 2.1 %; Immature Granulocytes Absolute 0.16 #; Lymphocytes # 1.4 10*3/uL (1.4-4.0); Lymphocytes % 18.9 % (21.3-54.2); Mean Corpuscular HGB Conc 29.9 GM/DL (32-36); Mean Corpuscular Volume 90.1 FL (87-102); Mean Platelet Volume 9.9 FL (9.6-12.0); Monocytes % 7.7 % (1.7-12.7); Neutrophils % 70.4 % (38.7-73.9); Platelet Count 227 T/CUMM (130-400); Red Blood Count 3.53 MC/CUMM (3.8-5.5); Red Cell Distribution Width 16.3 % (9.3-17.3); White Blood Count 7.6 T/CUMM (4-12)
[2019-06-09 05:53] LABS: Calcium 8.5 MG/DL (8.5-10.1); Osmolality,Calculated 297.1 MOS/KG (273-304)
[2019-06-09] MEDS: PANTOPRAZOLE 40 MG TABLET PO SCH ×2 (08:06→22:10)
[2019-06-09] MEDS: ATENOLOL 50 MG TABLET PO SCH ×2 (08:06→22:05)
[2019-06-09] MEDS: INSULIN LISPRO 100 UNIT/ML SUBCUT SCH ×4 (08:06→22:22)
[2019-06-09] MEDS: AMIODARONE 200 MG TABLET PO SCH (08:06)
[2019-06-09] MEDS: DOCUSATE SODIUM 100 MG CAPSULE PO SCH ×3 (08:06→22:11)
[2019-06-09] MEDS: APIXABAN 5 MG TABLET PO SCH (08:06)
[2019-06-09] MEDS: SUCRALFATE 1 GM/10 ML UDCUP PO SCH ×4 (08:07→22:11)
[2019-06-09] MEDS: FUROSEMIDE 40 MG/4 ML VIAL IV SCH ×2 (08:07→16:58)
[2019-06-09] MEDS: POLYETHYLENE GLYCOL POWDER 17 GM PACK PO SCH ×2 (08:44→22:11)
[2019-06-09] MEDS: TIMOLOL 0.5% OPH SOLN 5 ML BOTTLE BOTH EYES SCH (09:50)
[2019-06-09] MEDS: NYSTATIN CREAM 15 GM TUBE TOP SCH ×2 (09:50→22:11)
[2019-06-09] MEDS ORDERED: MAGNESIUM SULF RIDER 2 GM in PREMIX 1 EACH IV PRN (11:13)
[2019-06-09 15:58] LABS: Free T4 (Free Thyroxine) 0.92 NG/DL (0.76-1.46); Thyroid Stimulating Hormone 1.2 uIU/ml (0.358-3.74)
[2019-06-09 16:23] LABS: Creatinine,Urine Random 39 MG/DL; Total Protein,Urine Random 26 MG/DL; Urea Nitrogen, Urine Random 590 MG/DL
[2019-06-09] MEDS: INSULIN GLARGINE 100 UNIT/ML SUBCUT SCH (22:25)
[2019-06-10 04:54] LABS: Basophils % 0.1 % (0.0-0.8); Eosinophils # 0.1 10*3/uL (0.0-0.87); Eosinophils % 0.7 % (0.00-10.9); Hematocrit 33.2 VOL% (35.7-47.0); Hemoglobin 9.9 GM/DL (12.0-16.0); Immature Granulocytes % 1.6 %; Immature Granulocytes Absolute 0.14 #; Lymphocytes % 22.6 % (21.3-54.2); Mean Corpuscular HGB Conc 29.8 GM/DL (32-36); Mean Corpuscular Volume 89.2 FL (87-102); Mean Platelet Volume 10.1 FL (9.6-12.0); Monocytes % 7.3 % (1.7-12.7); Neutrophils % 67.7 % (38.7-73.9); Platelet Count 271 T/CUMM (130-400); Red Blood Count 3.72 MC/CUMM (3.8-5.5); Red Cell Distribution Width 16.1 % (9.3-17.3); White Blood Count 8.7 T/CUMM (4-12)
[2019-06-10 05:15] LABS: Calcium 8.4 MG/DL (8.5-10.1); Osmolality,Calculated 289.7 MOS/KG (273-304)
[2019-06-10] MEDS: SODIUM CHLORIDE 0.45% 1,000 ML IV SCH (05:53)
[2019-06-10] MEDS: POTASSIUM CHLORIDE RIDER 10 MEQ in PREMIX 1 EACH IV PRN ×2 (05:59→08:30)
[2019-06-10] MEDS ORDERED: POTASSIUM CHLORIDE 20 MEQ TABLET PO ONE ×2 (07:47→09:30)
[2019-06-10] MEDS ORDERED: HEPARIN/NACL 0.9% 2 UNITS/ML 0 ML IV ONE (08:03)
[2019-06-10] MEDS: DOCUSATE SODIUM 100 MG CAPSULE PO SCH ×2 (08:59→20:56)
[2019-06-10] MEDS: SUCRALFATE 1 GM/10 ML UDCUP PO SCH ×4 (08:59→20:56)
[2019-06-10] MEDS: POLYETHYLENE GLYCOL POWDER 17 GM PACK PO SCH ×2 (09:00→20:56)
[2019-06-10] MEDS: NYSTATIN CREAM 15 GM TUBE TOP SCH ×2 (09:00→20:47)
[2019-06-10] MEDS: ATENOLOL 50 MG TABLET PO SCH ×2 (09:00→20:46)
[2019-06-10] MEDS: AMIODARONE 200 MG TABLET PO SCH (09:00)
[2019-06-10] MEDS: TIMOLOL 0.5% OPH SOLN 5 ML BOTTLE BOTH EYES SCH (09:00)
[2019-06-10] MEDS: PANTOPRAZOLE 40 MG TABLET PO SCH ×2 (09:00→20:46)
[2019-06-10] MEDS: INSULIN LISPRO 100 UNIT/ML SUBCUT SCH ×4 (09:12→20:47)
[2019-06-10] MEDS ORDERED: DEXMEDETOMIDINE 200 MCG/2 ML VIAL IV ONE (10:06)
[2019-06-10] MEDS ORDERED: VERAPAMIL 5 MG/2 ML VIAL ONE (10:10)
[2019-06-10] MEDS ORDERED: HEPARIN/NACL 0.9% 2 UNITS/ML 1,000 ML IV ONE (10:10)
[2019-06-10] MEDS ORDERED: NITROGLYCERIN DRIP 50 MG/250 ML BOTTLE IV ONE (10:10)
[2019-06-10] MEDS ORDERED: LIDOCAINE 1% 20 ML VIAL ONE (10:10)
[2019-06-10] MEDS ORDERED: HEPARIN 5,000 UNIT/1 ML VIAL ONE (10:46)
[2019-06-10] MEDS ORDERED: MIDAZOLAM 2 MG/2 ML VIAL ONE (11:47)
[2019-06-10] MEDS ORDERED: fentaNYL 100 MCG/2 ML VIAL ONE (11:47)
[2019-06-10] MEDS: PHENOL 1.4% THROAT SPRAY 177 ML BOTTLE PO PRN ×2 (15:20→23:12)
[2019-06-10] MEDS: INSULIN GLARGINE 100 UNIT/ML SUBCUT SCH (20:47)
[2019-06-10] MEDS ORDERED: DEXAMETHASONE 10 MG/1 ML VIAL IV ONE (23:00)
[2019-06-11] MEDS: SODIUM CHLORIDE 0.45% 1,000 ML IV SCH ×2 (03:00→22:00)
[2019-06-11 06:36] LABS: Basophils % 0.1 % (0.0-0.8); Eosinophils # 0.1 10*3/uL (0.0-0.87); Eosinophils % 1.1 % (0.00-10.9); Hematocrit 32.4 VOL% (35.7-47.0); Hemoglobin 9.6 GM/DL (12.0-16.0); Immature Granulocytes % 1.7 %; Immature Granulocytes Absolute 0.16 #; Lymphocytes % 21.2 % (21.3-54.2); Mean Corpuscular HGB Conc 29.6 GM/DL (32-36); Mean Corpuscular Volume 90.8 FL (87-102); Mean Platelet Volume 10.9 FL (9.6-12.0); Monocytes % 7.4 % (1.7-12.7); Neutrophils % 68.5 % (38.7-73.9); Platelet Count 251 T/CUMM (130-400); Red Blood Count 3.57 MC/CUMM (3.8-5.5); Red Cell Distribution Width 15.9 % (9.3-17.3); White Blood Count 9.3 T/CUMM (4-12)
[2019-06-11 07:15] LABS: Calcium 8.5 MG/DL (8.5-10.1); Osmolality,Calculated 292.5 MOS/KG (273-304)
[2019-06-11] MEDS: SUCRALFATE 1 GM/10 ML UDCUP PO SCH ×4 (08:29→21:03)
[2019-06-11] MEDS: INSULIN LISPRO 100 UNIT/ML SUBCUT SCH ×4 (08:29→21:03)
[2019-06-11] MEDS: TIMOLOL 0.5% OPH SOLN 5 ML BOTTLE BOTH EYES SCH (08:30)
[2019-06-11] MEDS: POLYETHYLENE GLYCOL POWDER 17 GM PACK PO SCH ×3 (08:30→21:10)
[2019-06-11] MEDS: NYSTATIN CREAM 15 GM TUBE TOP SCH ×2 (08:31→21:04)
[2019-06-11] MEDS: DOCUSATE SODIUM 100 MG CAPSULE PO SCH ×2 (08:31→21:10)
[2019-06-11] MEDS: ATENOLOL 50 MG TABLET PO SCH ×2 (08:32→21:03)
[2019-06-11] MEDS: PANTOPRAZOLE 40 MG TABLET PO SCH ×2 (08:32→21:03)
[2019-06-11] MEDS: AMIODARONE 200 MG TABLET PO SCH (08:32)
[2019-06-11] MEDS ORDERED: FUROSEMIDE 40 MG/4 ML VIAL IV ONE (12:03)
[2019-06-11] MEDS: INSULIN GLARGINE 100 UNIT/ML SUBCUT SCH (21:03)
[2019-06-11] MEDS: APIXABAN 5 MG TABLET PO SCH (21:03)
[2019-06-12] MEDS: ATENOLOL 50 MG TABLET PO SCH ×2 (07:59→20:34)
[2019-06-12] MEDS: SUCRALFATE 1 GM/10 ML UDCUP PO SCH ×4 (07:59→20:34)
[2019-06-12] MEDS: INSULIN LISPRO 100 UNIT/ML SUBCUT SCH ×4 (08:00→20:35)
[2019-06-12] MEDS: PANTOPRAZOLE 40 MG TABLET PO SCH ×2 (08:00→20:34)
[2019-06-12] MEDS: AMIODARONE 200 MG TABLET PO SCH (08:00)
[2019-06-12] MEDS: APIXABAN 5 MG TABLET PO SCH ×2 (08:00→20:34)
[2019-06-12] MEDS: DOCUSATE SODIUM 100 MG CAPSULE PO SCH ×2 (08:01→20:35)
[2019-06-12] MEDS: POLYETHYLENE GLYCOL POWDER 17 GM PACK PO SCH ×2 (08:01→20:35)
[2019-06-12] MEDS: TIMOLOL 0.5% OPH SOLN 5 ML BOTTLE BOTH EYES SCH (08:01)
[2019-06-12] MEDS: NYSTATIN CREAM 15 GM TUBE TOP SCH ×2 (08:37→20:42)
[2019-06-12] MEDS ORDERED: FUROSEMIDE 40 MG/4 ML VIAL IV ONE (10:30)
[2019-06-12] MEDS: SODIUM CHLORIDE 0.45% 1,000 ML IV SCH (17:40)
[2019-06-12] MEDS: INSULIN GLARGINE 100 UNIT/ML SUBCUT SCH (20:34)
[2019-06-13 08:23] LABS: Basophils % 0.1 % (0.0-0.8); Eosinophils # 0.1 10*3/uL (0.0-0.87); Eosinophils % 0.6 % (0.00-10.9); Hematocrit 30.6 VOL% (35.7-47.0); Hemoglobin 9.1 GM/DL (12.0-16.0); Immature Granulocytes % 3.7 %; Immature Granulocytes Absolute 0.33 #; Lymphocytes # 2.1 10*3/uL (1.4-4.0); Lymphocytes % 23.4 % (21.3-54.2); Mean Corpuscular HGB Conc 29.7 GM/DL (32-36); Mean Corpuscular Volume 91.1 FL (87-102); Mean Platelet Volume 9.6 FL (9.6-12.0); Monocytes % 6.9 % (1.7-12.7); Neutrophils % 65.3 % (38.7-73.9); Platelet Count 238 T/CUMM (130-400); Red Blood Count 3.36 MC/CUMM (3.8-5.5); Red Cell Distribution Width 15.9 % (9.3-17.3); White Blood Count 8.9 T/CUMM (4-12)
[2019-06-13 08:44] LABS: Calcium 8.7 MG/DL (8.5-10.1); Osmolality,Calculated 293.4 MOS/KG (273-304)
[2019-06-13] MEDS: AMIODARONE 200 MG TABLET PO SCH (08:53)
[2019-06-13] MEDS: SUCRALFATE 1 GM/10 ML UDCUP PO SCH ×4 (08:53→21:31)
[2019-06-13] MEDS: ATENOLOL 50 MG TABLET PO SCH ×2 (08:54→21:30)
[2019-06-13] MEDS: PANTOPRAZOLE 40 MG TABLET PO SCH ×2 (08:54→21:30)
[2019-06-13] MEDS: DOCUSATE SODIUM 100 MG CAPSULE PO SCH ×2 (08:54→21:28)
[2019-06-13] MEDS: APIXABAN 5 MG TABLET PO SCH ×2 (08:54→21:29)
[2019-06-13] MEDS: INSULIN LISPRO 100 UNIT/ML SUBCUT SCH ×4 (08:55→21:31)
[2019-06-13] MEDS: TIMOLOL 0.5% OPH SOLN 5 ML BOTTLE BOTH EYES SCH (08:58)
[2019-06-13] MEDS: NYSTATIN CREAM 15 GM TUBE TOP SCH ×2 (08:59→22:40)
[2019-06-13] MEDS: POLYETHYLENE GLYCOL POWDER 17 GM PACK PO SCH ×2 (08:59→21:30)
[2019-06-13] MEDS ORDERED: FUROSEMIDE 20 MG TABLET PO ONE (11:48)
[2019-06-13] MEDS: FUROSEMIDE 40 MG TABLET PO SCH (16:45)
[2019-06-13] MEDS: ROSUVASTATIN 10 MG TABLET PO SCH (21:29)
[2019-06-13] MEDS: INSULIN GLARGINE 100 UNIT/ML SUBCUT SCH (21:33)
[2019-06-14] MEDS: SUCRALFATE 1 GM/10 ML UDCUP PO SCH ×4 (07:28→21:09)
[2019-06-14] MEDS: APIXABAN 5 MG TABLET PO SCH ×2 (08:46→21:08)
[2019-06-14] MEDS: INSULIN LISPRO 100 UNIT/ML SUBCUT SCH ×4 (08:49→21:10)
[2019-06-14] MEDS: FUROSEMIDE 40 MG TABLET PO SCH ×2 (08:50→16:38)
[2019-06-14] MEDS: DOCUSATE SODIUM 100 MG CAPSULE PO SCH ×2 (08:50→21:15)
[2019-06-14] MEDS: PANTOPRAZOLE 40 MG TABLET PO SCH ×2 (08:50→21:08)
[2019-06-14] MEDS: AMIODARONE 200 MG TABLET PO SCH (08:50)
[2019-06-14] MEDS: POLYETHYLENE GLYCOL POWDER 17 GM PACK PO SCH ×2 (08:52→21:15)
[2019-06-14] MEDS: ATENOLOL 50 MG TABLET PO SCH ×2 (08:52→21:08)
[2019-06-14] MEDS: NYSTATIN CREAM 15 GM TUBE TOP SCH ×2 (08:52→21:15)
[2019-06-14] MEDS: TIMOLOL 0.5% OPH SOLN 5 ML BOTTLE BOTH EYES SCH (08:52)
[2019-06-14] MEDS: ROSUVASTATIN 10 MG TABLET PO SCH (21:08)
[2019-06-14] MEDS: INSULIN GLARGINE 100 UNIT/ML SUBCUT SCH (21:10)
[2019-06-15 04:44] LABS: Basophils % 0.2 % (0.0-0.8); Eosinophils # 0.1 10*3/uL (0.0-0.87); Eosinophils % 0.5 % (0.00-10.9); Immature Granulocytes % 2.1 %; Immature Granulocytes Absolute 0.28 #; Lymphocytes # 2.8 10*3/uL (1.4-4.0); Lymphocytes % 21.6 % (21.3-54.2); Mean Corpuscular HGB Conc 30.3 GM/DL (32-36); Mean Corpuscular Volume 89.9 FL (87-102); Mean Platelet Volume 10.2 FL (9.6-12.0); Monocytes % 7.9 % (1.7-12.7); NRBC # 0.02 10*3/uL; Neutrophils % 67.7 % (38.7-73.9); Platelet Count 315 T/CUMM (130-400); Red Blood Count 3.67 MC/CUMM (3.8-5.5); Red Cell Distribution Width 15.9 % (9.3-17.3); White Blood Count 13.1 T/CUMM (4-12)
[2019-06-15 05:02] LABS: Calcium 8.6 MG/DL (8.5-10.1); Osmolality,Calculated 295.4 MOS/KG (273-304)
[2019-06-15] MEDS: SUCRALFATE 1 GM/10 ML UDCUP PO SCH ×2 (10:28→12:32)
[2019-06-15] MEDS: INSULIN LISPRO 100 UNIT/ML SUBCUT SCH ×2 (10:29→12:31)
[2019-06-15] MEDS: DOCUSATE SODIUM 100 MG CAPSULE PO SCH (10:30)
[2019-06-15] MEDS: AMIODARONE 200 MG TABLET PO SCH (10:30)
[2019-06-15] MEDS: APIXABAN 5 MG TABLET PO SCH (10:30)
[2019-06-15] MEDS: FUROSEMIDE 40 MG TABLET PO SCH (10:30)
[2019-06-15] MEDS: POLYETHYLENE GLYCOL POWDER 17 GM PACK PO SCH (10:31)
[2019-06-15] MEDS: ATENOLOL 50 MG TABLET PO SCH (10:31)
[2019-06-15] MEDS: NYSTATIN CREAM 15 GM TUBE TOP SCH (10:31)
[2019-06-15] MEDS: PANTOPRAZOLE 40 MG TABLET PO SCH (10:31)
[2019-06-15] MEDS: TIMOLOL 0.5% OPH SOLN 5 ML BOTTLE BOTH EYES SCH (10:31)
[2019-06-15] MEDS ORDERED: POTASSIUM CHLORIDE 20 MEQ TABLET PO ONE (10:35)
[2019-06-15 13:10] VITALS: BP 111/69
[2019-06-16 16:16] LABS: Urine Volume 2600 mL
== END 2019-06-15 15:49 | disposition home health service (06) | DRG 286 ==
LOC: EDUNIT# → EDBD → N.ED 19:28 → N.EDINP 22:44 → SUATTDRO 22:44 → N.TELES 06-07 00:15
PROVIDERS: ADMIT Internal Medicine; ATTEND Family Medicine

== ENCOUNTER 2019-06-27 12:01 | Inpatient (IN) ==
[2019-06-27] MEDS ORDERED: MORPHINE 4 MG/1 ML VIAL IV STA (12:34)
[2019-06-27] MEDS ORDERED: PANTOPRAZOLE 40 MG VIAL IV STA (12:34)
[2019-06-27] MEDS ORDERED: ALUM/MAG/SIMETH/LIDO VISC 1:1 30 ML BOTTLE PO STA (12:34)
[2019-06-27] MEDS ORDERED: ONDANSETRON 4 MG/2 ML VIAL IV STA (12:34)
[2019-06-27 12:49] LABS: Basophils % 0.2 % (0.0-0.8); Eosinophils # 0.1 10*3/uL (0.0-0.87); Eosinophils % 1.5 % (0.00-10.9); Hematocrit 33.6 VOL% (35.7-47.0); Immature Granulocytes % 1.1 %; Lymphocytes # 1.7 10*3/uL (1.4-4.0); Lymphocytes % 18.7 % (21.3-54.2); Mean Corpuscular HGB Conc 29.8 GM/DL (32-36); Mean Corpuscular Volume 89.6 FL (87-102); Mean Platelet Volume 10.2 FL (9.6-12.0); Monocytes % 7.9 % (1.7-12.7); NRBC # 0.04 10*3/uL; Neutrophils % 70.6 % (38.7-73.9); Platelet Count 235 T/CUMM (130-400); Red Blood Count 3.75 MC/CUMM (3.8-5.5); Red Cell Distribution Width 17.1 % (9.3-17.3); White Blood Count 8.9 T/CUMM (4-12)
[2019-06-27 13:02] LABS: Alanine Aminotransferase 16 U/L (13-56); Albumin 2.7 G/DL (3.4-5.0); Alkaline Phosphatase 99 U/L (45-117); Amylase 29 U/L (25-115); Aspartate Amino Transferase 25 U/L (0-37); Blood Urea Nitrogen 18 MG/DL (7-18); Calcium 8.9 MG/DL (8.5-10.1); Estimated Glom Filtration Rate 50 ML/MIN; Glucose 103 MG/DL (74-106); Osmolality,Calculated 284.1 MOS/KG (273-304); Total Protein 6.8 G/DL (6.4-8.3); Troponin I < 0.015 NG/ML (0.00-0.045)
[2019-06-27 13:13] LABS: Apearance,Urine CLEAR (Clear); Bacteria,Urine Occasional /HPF (Few); Bilirubin,Urine Negative (Negative); Blood, Urine Negative (Negative); Glucose,Urine (UA) Negative (Negative); Ketones,Urine Negative (Negative); Mucus,Urine Occasional /LPF (Occasional); Nitrite,Urine Negative (Negative); Protein,Urine Negative; RBC,Urine 1 /HPF (0-4); Squamous Epithelial Cell,Urine Occasional /HPF (0-10); Urine Color Yellow (Yellow); Urine Specific Gravity 1.011 (1.001-1.035); Urine Urobilinogen < 2.0 EU/DL (0.2-1.0)
[2019-06-27 13:45] LABS: Anisocytosis 2+; Hypochromasia 2+; Microcytosis 2+; Ovalocytes Slight; Poikilocytosis Slight; Tear Drop Cells Slight
[2019-06-27 13:46] LABS: Platelet Estimate Adequate
[2019-06-27] MEDS ORDERED: cefTRIAXone 1,000 MG in SODIUM CHLORIDE 0.9% 100 ML IV STA (14:01)
[2019-06-27] MEDS ORDERED: GLUCAGON 1 MG VIAL IM PRN (15:24)
[2019-06-27] MEDS ORDERED: DEXTROSE 50% 25 GM/50 ML VIAL IV PRN (15:24)
[2019-06-27] MEDS ORDERED: BISACODYL 5 MG TABLET PO PRN (15:24)
[2019-06-27] MEDS ORDERED: LACTULOSE 20 GM/30 ML UDCUP PO PRN (15:24)
[2019-06-27] MEDS ORDERED: DOCUSATE SODIUM 100 MG CAPSULE PO PRN (15:24)
[2019-06-27] MEDS ORDERED: ACETAMINOPHEN 325 MG TABLET PO PRN (15:24)
[2019-06-27] MEDS ORDERED: NITROGLYCERIN SL 0.4 MG TABLET SL PRN (15:30)
[2019-06-27 15:56] LABS: Thyroid Stimulating Hormone 2.11 uIU/ml (0.358-3.74)
[2019-06-27] MEDS ORDERED: cefTRIAXone 1,000 MG in SYRINGE 1 EACH IV SCH (16:30)
[2019-06-27] MEDS: INSULIN REGULAR 100 UNIT/ML SUBCUT SCH ×2 (18:16→21:18)
[2019-06-27] MEDS: FUROSEMIDE 40 MG TABLET PO SCH (18:17)
[2019-06-27] MEDS: SODIUM CHLORIDE 0.9% 1,000 ML IV SCH (18:50)
[2019-06-27] MEDS: ALBUTEROL/IPRATROPIUM 3 ML NEB RESP TX SCH (19:39)
[2019-06-27] MEDS: APIXABAN 5 MG TABLET PO SCH (21:17)
[2019-06-27] MEDS: atenoloL 50 MG TABLET PO SCH (21:17)
[2019-06-27] MEDS: SUCRALFATE 1 GM TABLET PO SCH (21:17)
[2019-06-27] MEDS: ROSUVASTATIN 10 MG TABLET PO SCH (21:17)
[2019-06-27] MEDS: CARBOXYMETHYLCELLULOSE 1% OPH SOLN BOTH EYES SCH (21:18)
[2019-06-27] MEDS: AZITHROMYCIN INJ 500 MG in SODIUM CHLORIDE 0.9% 250 ML IV SCH (23:30)
[2019-06-28 05:56] LABS: Basophils % 0.3 % (0.0-0.8); Calcium 8.5 MG/DL (8.5-10.1); Eosinophils # 0.1 10*3/uL (0.0-0.87); Eosinophils % 1.6 % (0.00-10.9); Hematocrit 26.4 VOL% (35.7-47.0); Hemoglobin 7.7 GM/DL (12.0-16.0); Immature Granulocytes % 1.7 %; Immature Granulocytes Absolute 0.13 #; Lymphocytes # 1.5 10*3/uL (1.4-4.0); Lymphocytes % 19.8 % (21.3-54.2); Mean Corpuscular HGB Conc 29.2 GM/DL (32-36); Mean Platelet Volume 10.6 FL (9.6-12.0); Monocytes % 8.4 % (1.7-12.7); NRBC # 0.02 10*3/uL; Neutrophils % 68.2 % (38.7-73.9); Osmolality,Calculated 289.5 MOS/KG (273-304); Platelet Count 213 T/CUMM (130-400); Red Cell Distribution Width 17.2 % (9.3-17.3); White Blood Count 7.5 T/CUMM (4-12)
[2019-06-28 06:10] LABS: Polychromasia Few
[2019-06-28 06:11] LABS: Platelet Estimate Normal
[2019-06-28] MEDS: ALBUTEROL/IPRATROPIUM 3 ML NEB RESP TX SCH ×4 (07:37→20:14)
[2019-06-28] MEDS: atenoloL 50 MG TABLET PO SCH ×2 (08:20→21:07)
[2019-06-28] MEDS: FUROSEMIDE 40 MG TABLET PO SCH ×2 (08:21→16:56)
[2019-06-28] MEDS: SUCRALFATE 1 GM TABLET PO SCH ×2 (08:21→21:07)
[2019-06-28] MEDS: APIXABAN 5 MG TABLET PO SCH ×2 (08:22→21:07)
[2019-06-28] MEDS: INSULIN REGULAR 100 UNIT/ML SUBCUT SCH ×4 (08:22→21:23)
[2019-06-28] MEDS: TIMOLOL 0.5% OPH SOLN 5 ML BOTTLE BOTH EYES SCH (08:22)
[2019-06-28] MEDS: CARBOXYMETHYLCELLULOSE 1% OPH SOLN BOTH EYES SCH ×3 (08:22→21:08)
[2019-06-28] MEDS ORDERED: PANTOPRAZOLE 40 MG TABLET PO SCH (09:00)
[2019-06-28] MEDS: AMIODARONE 200 MG TABLET PO SCH (09:15)
[2019-06-28 15:11] LABS: Basophils % 0.2 % (0.0-0.8); Eosinophils # 0.2 10*3/uL (0.0-0.87); Eosinophils % 2.3 % (0.00-10.9); Hemoglobin 9.1 GM/DL (12.0-16.0); Immature Granulocytes % 1.3 %; Immature Granulocytes Absolute 0.13 #; Lymphocytes # 1.7 10*3/uL (1.4-4.0); Lymphocytes % 17.3 % (21.3-54.2); Mean Corpuscular HGB Conc 29.4 GM/DL (32-36); Mean Corpuscular Volume 90.9 FL (87-102); Mean Platelet Volume 10.7 FL (9.6-12.0); Monocytes % 7.5 % (1.7-12.7); NRBC # 0.02 10*3/uL; Neutrophils % 71.4 % (38.7-73.9); Platelet Count 271 T/CUMM (130-400); Red Blood Count 3.41 MC/CUMM (3.8-5.5); Red Cell Distribution Width 17.1 % (9.3-17.3); White Blood Count 9.7 T/CUMM (4-12)
[2019-06-28 15:38] LABS: Folate 19.9 NG/ML (5.4-24.0); Vitamin B12 310 PG/ML (211-911)
[2019-06-28 16:06] LABS: Sedimentation Rate-Westergren 92 MM/HR (0-30)
[2019-06-28] MEDS: cefTRIAXone 1,000 MG in SYRINGE 1 EACH IV SCH (16:55)
[2019-06-28] MEDS: PANTOPRAZOLE 40 MG TABLET PO SCH (19:39)
[2019-06-28] MEDS: ROSUVASTATIN 10 MG TABLET PO SCH (21:07)
[2019-06-28] MEDS: AZITHROMYCIN INJ 500 MG in SODIUM CHLORIDE 0.9% 250 ML IV SCH (23:00)
[2019-06-29] MEDS: ALBUTEROL/IPRATROPIUM 3 ML NEB RESP TX SCH ×4 (00:30→19:34)
[2019-06-29] MEDS: PANTOPRAZOLE 40 MG TABLET PO SCH ×2 (05:57→18:41)
[2019-06-29 06:52] LABS: Basophils % 0.2 % (0.0-0.8); Eosinophils # 0.2 10*3/uL (0.0-0.87); Eosinophils % 2.4 % (0.00-10.9); Hematocrit 29.1 VOL% (35.7-47.0); Hemoglobin 8.5 GM/DL (12.0-16.0); Immature Granulocytes % 1.2 %; Lymphocytes # 1.8 10*3/uL (1.4-4.0); Lymphocytes % 21.3 % (21.3-54.2); Mean Corpuscular HGB Conc 29.2 GM/DL (32-36); Mean Corpuscular Volume 90.9 FL (87-102); Mean Platelet Volume 10.5 FL (9.6-12.0); Monocytes % 8.9 % (1.7-12.7); Platelet Count 237 T/CUMM (130-400); Red Cell Distribution Width 16.8 % (9.3-17.3); White Blood Count 8.5 T/CUMM (4-12)
[2019-06-29 07:04] LABS: Osmolality,Calculated 280.4 MOS/KG (273-304)
[2019-06-29] MEDS: INSULIN REGULAR 100 UNIT/ML SUBCUT SCH ×4 (07:40→22:19)
[2019-06-29] MEDS: TIMOLOL 0.5% OPH SOLN 5 ML BOTTLE BOTH EYES SCH (08:48)
[2019-06-29] MEDS: SUCRALFATE 1 GM TABLET PO SCH ×2 (08:48→22:20)
[2019-06-29] MEDS: APIXABAN 5 MG TABLET PO SCH ×2 (08:48→22:20)
[2019-06-29] MEDS: atenoloL 50 MG TABLET PO SCH ×2 (08:48→22:20)
[2019-06-29] MEDS: AMIODARONE 200 MG TABLET PO SCH (08:48)
[2019-06-29] MEDS: CARBOXYMETHYLCELLULOSE 1% OPH SOLN BOTH EYES SCH ×3 (08:49→22:21)
[2019-06-29] MEDS ORDERED: TUBERCULIN SKIN TEST 0.1 ML SYRINGE INTRADERM ONE (12:17)
[2019-06-29] MEDS: cefTRIAXone 1,000 MG in SYRINGE 1 EACH IV SCH (15:47)
[2019-06-29] MEDS: ROSUVASTATIN 10 MG TABLET PO SCH (22:20)
[2019-06-29] MEDS: AZITHROMYCIN INJ 500 MG in SODIUM CHLORIDE 0.9% 250 ML IV SCH (22:30)
[2019-06-30] MEDS: ALBUTEROL/IPRATROPIUM 3 ML NEB RESP TX SCH ×4 (00:30→19:55)
[2019-06-30] MEDS: PANTOPRAZOLE 40 MG TABLET PO SCH ×2 (05:30→17:40)
[2019-06-30] MEDS: atenoloL 50 MG TABLET PO SCH ×2 (08:20→21:10)
[2019-06-30] MEDS: INSULIN REGULAR 100 UNIT/ML SUBCUT SCH ×4 (08:20→21:09)
[2019-06-30] MEDS: APIXABAN 5 MG TABLET PO SCH ×2 (08:20→21:10)
[2019-06-30] MEDS: AMIODARONE 200 MG TABLET PO SCH (08:20)
[2019-06-30] MEDS: SUCRALFATE 1 GM TABLET PO SCH ×2 (08:20→21:10)
[2019-06-30] MEDS: CARBOXYMETHYLCELLULOSE 1% OPH SOLN BOTH EYES SCH ×3 (08:21→21:10)
[2019-06-30] MEDS: TIMOLOL 0.5% OPH SOLN 5 ML BOTTLE BOTH EYES SCH (08:21)
[2019-06-30 09:14] LABS: Calcium 9.2 MG/DL (8.5-10.1); Osmolality,Calculated 282.4 MOS/KG (273-304)
[2019-06-30 09:16] LABS: Basophils % 0.2 % (0.0-0.8); Eosinophils # 0.2 10*3/uL (0.0-0.87); Eosinophils % 1.9 % (0.00-10.9); Hematocrit 30.1 VOL% (35.7-47.0); Hemoglobin 8.7 GM/DL (12.0-16.0); Immature Granulocytes % 1.4 %; Immature Granulocytes Absolute 0.12 #; Lymphocytes # 1.8 10*3/uL (1.4-4.0); Lymphocytes % 21.6 % (21.3-54.2); Mean Corpuscular HGB Conc 28.9 GM/DL (32-36); Mean Corpuscular Volume 89.9 FL (87-102); Mean Platelet Volume 10.2 FL (9.6-12.0); Monocytes % 8.2 % (1.7-12.7); Neutrophils % 66.7 % (38.7-73.9); Platelet Count 269 T/CUMM (130-400); Red Blood Count 3.35 MC/CUMM (3.8-5.5); Red Cell Distribution Width 16.4 % (9.3-17.3); White Blood Count 8.4 T/CUMM (4-12)
[2019-06-30 09:49] LABS: Hypochromasia 1+; Ovalocytes Slight; Platelet Estimate Adequate
[2019-06-30] MEDS: SODIUM CHLORIDE 0.9% 1,000 ML IV SCH (10:44)
[2019-06-30] MEDS ORDERED: FUROSEMIDE 40 MG/4 ML VIAL IV ONE (12:11)
[2019-06-30] MEDS: cefTRIAXone 1,000 MG in SYRINGE 1 EACH IV SCH (15:01)
[2019-06-30] MEDS: ROSUVASTATIN 10 MG TABLET PO SCH (21:10)
[2019-07-01] MEDS: ALBUTEROL/IPRATROPIUM 3 ML NEB RESP TX SCH ×2 (00:05→08:06)
[2019-07-01] MEDS: AZITHROMYCIN INJ 500 MG in SODIUM CHLORIDE 0.9% 250 ML IV SCH (00:17)
[2019-07-01] MEDS: PANTOPRAZOLE 40 MG TABLET PO SCH (05:30)
[2019-07-01 06:23] LABS: Basophils % 0.4 % (0.0-0.8); Eosinophils # 0.2 10*3/uL (0.0-0.87); Eosinophils % 2.2 % (0.00-10.9); Hematocrit 28.8 VOL% (35.7-47.0); Hemoglobin 8.5 GM/DL (12.0-16.0); Immature Granulocytes % 2.3 %; Immature Granulocytes Absolute 0.18 #; Lymphocytes # 1.9 10*3/uL (1.4-4.0); Lymphocytes % 24.3 % (21.3-54.2); Mean Corpuscular HGB Conc 29.5 GM/DL (32-36); Mean Corpuscular Volume 88.9 FL (87-102); Monocytes % 8.3 % (1.7-12.7); Neutrophils % 62.5 % (38.7-73.9); Platelet Count 237 T/CUMM (130-400); Red Blood Count 3.24 MC/CUMM (3.8-5.5); Red Cell Distribution Width 16.4 % (9.3-17.3); White Blood Count 7.9 T/CUMM (4-12)
[2019-07-01 06:38] LABS: Osmolality,Calculated 285.5 MOS/KG (273-304)
[2019-07-01 07:23] VITALS: BP 118/70
[2019-07-01 08:44] LABS: Hemoglobin A1 (Alkaline) 98.1 % (96.5-98.5); Hemoglobin A2 (Alkaline) 1.9 % (1.5-3.5)
[2019-07-01] MEDS: SUCRALFATE 1 GM TABLET PO SCH (08:46)
[2019-07-01] MEDS: INSULIN REGULAR 100 UNIT/ML SUBCUT SCH (08:47)
[2019-07-01] MEDS: AMIODARONE 200 MG TABLET PO SCH (08:47)
[2019-07-01] MEDS: APIXABAN 5 MG TABLET PO SCH (08:47)
[2019-07-01] MEDS: atenoloL 50 MG TABLET PO SCH (08:47)
[2019-07-01] MEDS: CARBOXYMETHYLCELLULOSE 1% OPH SOLN BOTH EYES SCH (08:50)
[2019-07-01] MEDS: TIMOLOL 0.5% OPH SOLN 5 ML BOTTLE BOTH EYES SCH (08:50)
[2019-07-01] MEDS ORDERED: FUROSEMIDE 20 MG TABLET PO SCH (16:00)
== END 2019-07-01 11:13 | DRG 194 ==
LOC: EDBD → EDUNIT# → N.ED 12:01 → N.EDINP 15:24 → N.3E 17:27
PROVIDERS: ADMIT Internal Medicine; ATTEND Internal Medicine

== ENCOUNTER 2019-07-23 12:39 | Inpatient (IN) ==
[2019-07-23] MEDS ORDERED: ONDANSETRON 4 MG/2 ML VIAL IV STA (13:07)
[2019-07-23] MEDS ORDERED: HYDROmorphone 2 MG/1 ML VIAL IV STA (13:07)
[2019-07-23 13:21] LABS: Basophils % 0.2 % (0.0-0.8); Eosinophils # 0.3 10*3/uL (0.0-0.87); Eosinophils % 2.1 % (0.00-10.9); Hematocrit 23.5 VOL% (35.7-47.0); Hemoglobin 6.5 GM/DL (12.0-16.0); Immature Granulocytes Absolute 0.12 #; Lymphocytes # 1.8 10*3/uL (1.4-4.0); Lymphocytes % 14.2 % (21.3-54.2); Mean Corpuscular HGB Conc 27.7 GM/DL (32-36); Mean Corpuscular Volume 90.4 FL (87-102); Mean Platelet Volume 10.5 FL (9.6-12.0); Monocytes % 8.1 % (1.7-12.7); NRBC # 0.13 10*3/uL; Neutrophils % 74.4 % (38.7-73.9); Platelet Count 301 T/CUMM (130-400); Red Cell Distribution Width 17.6 % (9.3-17.3); White Blood Count 12.6 T/CUMM (4-12)
[2019-07-23 13:48] LABS: Albumin 2.5 G/DL (3.4-5.0); Bilirubin,Total 0.4 MG/DL (0.2-1.0); Calcium 8.7 MG/DL (8.5-10.1); Osmolality,Calculated 282.7 MOS/KG (273-304); Total Protein 6.2 G/DL (6.4-8.3)
[2019-07-23 14:00] LABS: Hypochromasia 3+
[2019-07-23 14:19] LABS: Apearance,Urine CLEAR (Clear); Bilirubin,Urine Negative (Negative); Blood, Urine Negative (Negative); Glucose,Urine (UA) Negative (Negative); Ketones,Urine Negative (Negative); Mucus,Urine Occasional /LPF (Occasional); Nitrite,Urine Negative (Negative); Protein,Urine Negative; Squamous Epithelial Cell,Urine Occasional /HPF (0-10); Urine Color Yellow (Yellow); Urine Urobilinogen < 2.0 EU/DL (0.2-1.0)
[2019-07-23] MEDS ORDERED: PIPERACILLIN/TAZOBACTAM 3,375 MG in SODIUM CHLORIDE 0.9% 100 ML IV STA (16:01)
[2019-07-23] MEDS ORDERED: diphenhydrAMINE CAP 25 MG CAPSULE PO PRN (16:40)
[2019-07-23] MEDS ORDERED: BISACODYL 5 MG TABLET PO PRN (16:40)
[2019-07-23] MEDS ORDERED: GLUCAGON 1 MG VIAL IM PRN (16:40)
[2019-07-23] MEDS ORDERED: ACETAMINOPHEN 325 MG TABLET PO PRN (16:40)
[2019-07-23] MEDS ORDERED: DEXTROSE 10% 250 ML BAG IV PRN (16:40)
[2019-07-23] MEDS ORDERED: NITROGLYCERIN SL 0.4 MG TABLET SL PRN (16:44)
[2019-07-23] MEDS ORDERED: ALBUTEROL 2.5 MG/3 ML NEB RESP TX PRN (16:47)
[2019-07-23] MEDS ORDERED: SODIUM CHLORIDE 0.9% 1,000 ML IV PRN (16:48)
[2019-07-23 18:38] LABS: Basophils % 0.2 % (0.0-0.8); Eosinophils # 0.3 10*3/uL (0.0-0.87); Eosinophils % 2.5 % (0.00-10.9); Hematocrit 22.5 VOL% (35.7-47.0); Immature Granulocytes % 0.7 %; Immature Granulocytes Absolute 0.08 #; Lymphocytes # 1.7 10*3/uL (1.4-4.0); Lymphocytes % 14.6 % (21.3-54.2); Mean Corpuscular HGB Conc 27.6 GM/DL (32-36); Mean Corpuscular Volume 90.7 FL (87-102); Mean Platelet Volume 10.2 FL (9.6-12.0); Monocytes % 7.1 % (1.7-12.7); NRBC # 0.12 10*3/uL; Neutrophils % 74.9 % (38.7-73.9); Platelet Count 297 T/CUMM (130-400); Red Blood Count 2.48 MC/CUMM (3.8-5.5); Red Cell Distribution Width 17.7 % (9.3-17.3); White Blood Count 11.4 T/CUMM (4-12)
[2019-07-23 18:39] LABS: Folate 21.7 NG/ML (5.4-24.0); Vitamin B12 180 PG/ML (211-911)
[2019-07-23 18:40] LABS: Hemoglobin 6.2 GM/DL (12.0-16.0)
[2019-07-23] MEDS: ONDANSETRON 4 MG/2 ML VIAL IV PRN (19:42)
[2019-07-23 19:45] LABS: Sedimentation Rate-Westergren 114 MM/HR (0-30)
[2019-07-23 20:08] LABS: Anisocytosis 1+; Hypochromasia Slight; Ovalocytes Slight; Poikilocytosis Slight
[2019-07-23] MEDS: ALBUTEROL/IPRATROPIUM 3 ML NEB RESP TX SCH (20:12)
[2019-07-23] MEDS ORDERED: RANITIDINE 150 MG TABLET PO SCH (21:00)
[2019-07-23] MEDS: FUROSEMIDE 40 MG/4 ML VIAL IV SCH (21:07)
[2019-07-23] MEDS: atenoloL 50 MG TABLET PO SCH (21:13)
[2019-07-23] MEDS: INSULIN LISPRO 100 UNIT/ML SUBCUT SCH (21:13)
[2019-07-23] MEDS: ROSUVASTATIN 10 MG TABLET PO SCH (21:13)
[2019-07-24] MEDS: ALBUTEROL/IPRATROPIUM 3 ML NEB RESP TX SCH ×6 (01:00→19:39)
[2019-07-24] MEDS: ONDANSETRON 4 MG/2 ML VIAL IV PRN ×4 (01:04→21:09)
[2019-07-24 04:38] LABS: Basophils % 0.3 % (0.0-0.8); Eosinophils # 0.3 10*3/uL (0.0-0.87); Eosinophils % 2.9 % (0.00-10.9); Hematocrit 27.7 VOL% (35.7-47.0); Hemoglobin 7.9 GM/DL (12.0-16.0); Immature Granulocytes % 1.1 %; Lymphocytes # 1.2 10*3/uL (1.4-4.0); Lymphocytes % 13.1 % (21.3-54.2); Mean Corpuscular HGB Conc 28.5 GM/DL (32-36); Mean Corpuscular Volume 87.7 FL (87-102); Mean Platelet Volume 10.4 FL (9.6-12.0); Monocytes % 8.9 % (1.7-12.7); NRBC # 0.05 10*3/uL; Neutrophils % 73.7 % (38.7-73.9); Platelet Count 249 T/CUMM (130-400); Red Blood Count 3.16 MC/CUMM (3.8-5.5); Red Cell Distribution Width 18.5 % (9.3-17.3); White Blood Count 9.3 T/CUMM (4-12)
[2019-07-24] MEDS: VANCOMYCIN INJ 1,250 MG in SODIUM CHLORIDE 0.9% 250 ML IV SCH (05:19)
[2019-07-24 05:24] LABS: Anisocytosis 1+; Hypochromasia 2+; Microcytosis 1+; Tear Drop Cells Slight
[2019-07-24 05:25] LABS: Giant Platelets Few; Ovalocytes Slight; Platelet Estimate Normal
[2019-07-24 06:04] LABS: Calcium 8.8 MG/DL (8.5-10.1); Osmolality,Calculated 284.8 MOS/KG (273-304)
[2019-07-24 06:54] LABS: Hemoglobin 7.9 GM/DL (12.0-16.0)
[2019-07-24] MEDS: AMIODARONE 200 MG TABLET PO SCH (08:18)
[2019-07-24] MEDS: PIPERACILLIN/TAZOBACTAM 3,375 MG in SODIUM CHLORIDE 0.9% 100 ML IV SCH ×3 (08:18→23:20)
[2019-07-24] MEDS: guaiFENesin/DM ER 600-30 MG TABLET PO PRN ×2 (08:18→21:07)
[2019-07-24] MEDS: FUROSEMIDE 40 MG/4 ML VIAL IV SCH ×2 (08:19→15:29)
[2019-07-24] MEDS: PANTOPRAZOLE 40 MG TABLET PO SCH (08:19)
[2019-07-24] MEDS: atenoloL 50 MG TABLET PO SCH ×2 (08:19→21:07)
[2019-07-24] MEDS: PROMETHAZINE 25 MG/1 ML VIAL IM PRN ×2 (08:21→18:29)
[2019-07-24] MEDS: INSULIN LISPRO 100 UNIT/ML SUBCUT SCH ×4 (08:23→21:06)
[2019-07-24] MEDS: TIMOLOL 0.5% OPH SOLN 5 ML BOTTLE BOTH EYES SCH (09:15)
[2019-07-24] MEDS: DOCUSATE SODIUM 100 MG CAPSULE PO PRN ×2 (09:16→21:06)
[2019-07-24] MEDS: ZALEPLON 5 MG CAPSULE PO PRN (21:06)
[2019-07-24] MEDS: ROSUVASTATIN 10 MG TABLET PO SCH (21:07)
[2019-07-25] MEDS: ALBUTEROL/IPRATROPIUM 3 ML NEB RESP TX SCH ×7 (01:06→23:15)
[2019-07-25] MEDS: ONDANSETRON 4 MG/2 ML VIAL IV PRN ×3 (03:22→21:50)
[2019-07-25] MEDS: VANCOMYCIN INJ 1,250 MG in SODIUM CHLORIDE 0.9% 250 ML IV SCH (05:36)
[2019-07-25] MEDS: INSULIN LISPRO 100 UNIT/ML SUBCUT SCH ×5 (08:07→21:50)
[2019-07-25] MEDS: FUROSEMIDE 40 MG/4 ML VIAL IV SCH ×2 (08:24→18:09)
[2019-07-25] MEDS: atenoloL 50 MG TABLET PO SCH ×2 (08:31→21:50)
[2019-07-25] MEDS: AMIODARONE 200 MG TABLET PO SCH (08:31)
[2019-07-25] MEDS: PANTOPRAZOLE 40 MG TABLET PO SCH (08:31)
[2019-07-25] MEDS: TIMOLOL 0.5% OPH SOLN 5 ML BOTTLE BOTH EYES SCH (08:37)
[2019-07-25] MEDS: PIPERACILLIN/TAZOBACTAM 3,375 MG in SODIUM CHLORIDE 0.9% 100 ML IV SCH ×3 (09:03→23:32)
[2019-07-25 09:58] LABS: Hemoglobin A1 (Alkaline) 98.3 % (96.5-98.5); Hemoglobin A2 (Alkaline) 1.7 % (1.5-3.5)
[2019-07-25 11:31] LABS: Hematocrit 28.6 VOL% (35.7-47.0); Hemoglobin 8.2 GM/DL (12.0-16.0)
[2019-07-25] MEDS: DOCUSATE SODIUM 100 MG CAPSULE PO PRN (18:35)
[2019-07-25] MEDS: ROSUVASTATIN 10 MG TABLET PO SCH (21:50)
[2019-07-25] MEDS: INSULIN GLARGINE 100 UNIT/ML SUBCUT SCH (21:50)
[2019-07-26] MEDS: ALBUTEROL/IPRATROPIUM 3 ML NEB RESP TX SCH ×6 (03:05→23:57)
[2019-07-26] MEDS: ONDANSETRON 4 MG/2 ML VIAL IV PRN ×3 (04:09→12:55)
[2019-07-26 06:32] LABS: Basophils % 0.4 % (0.0-0.8); Eosinophils # 0.2 10*3/uL (0.0-0.87); Eosinophils % 2.6 % (0.00-10.9); Hematocrit 31.3 VOL% (35.7-47.0); Hemoglobin 9.1 GM/DL (12.0-16.0); Immature Granulocytes % 0.7 %; Immature Granulocytes Absolute 0.06 #; Lymphocytes # 0.9 10*3/uL (1.4-4.0); Lymphocytes % 10.7 % (21.3-54.2); Mean Corpuscular HGB Conc 29.1 GM/DL (32-36); Mean Corpuscular Volume 88.7 FL (87-102); Mean Platelet Volume 11.7 FL (9.6-12.0); Monocytes % 8.9 % (1.7-12.7); Neutrophils % 76.7 % (38.7-73.9); Platelet Count 189 T/CUMM (130-400); Red Blood Count 3.53 MC/CUMM (3.8-5.5); Red Cell Distribution Width 17.5 % (9.3-17.3); White Blood Count 8.3 T/CUMM (4-12)
[2019-07-26 07:02] LABS: Calcium 8.6 MG/DL (8.5-10.1)
[2019-07-26] MEDS: FUROSEMIDE 40 MG/4 ML VIAL IV SCH ×2 (08:36→15:29)
[2019-07-26] MEDS: INSULIN LISPRO 100 UNIT/ML SUBCUT SCH ×5 (08:37→21:28)
[2019-07-26] MEDS: atenoloL 50 MG TABLET PO SCH ×2 (08:37→21:27)
[2019-07-26] MEDS: PANTOPRAZOLE 40 MG TABLET PO SCH (08:37)
[2019-07-26] MEDS: PIPERACILLIN/TAZOBACTAM 3,375 MG in SODIUM CHLORIDE 0.9% 100 ML IV SCH ×2 (08:38→15:31)
[2019-07-26] MEDS: TIMOLOL 0.5% OPH SOLN 5 ML BOTTLE BOTH EYES SCH (09:00)
[2019-07-26] MEDS: NYSTATIN 500,000 UNIT/5 ML UDCUP SWISH/SWAL SCH ×2 (18:07→21:28)
[2019-07-26] MEDS: ROSUVASTATIN 10 MG TABLET PO SCH (21:27)
[2019-07-26] MEDS: DOCUSATE SODIUM 100 MG CAPSULE PO PRN (21:27)
[2019-07-26] MEDS: INSULIN GLARGINE 100 UNIT/ML SUBCUT SCH (21:28)
[2019-07-27] MEDS: ALBUTEROL/IPRATROPIUM 3 ML NEB RESP TX SCH ×6 (03:17→22:39)
[2019-07-27] MEDS: ONDANSETRON 4 MG/2 ML VIAL IV PRN ×3 (05:16→13:56)
[2019-07-27] MEDS: atenoloL 50 MG TABLET PO SCH ×2 (09:25→21:24)
[2019-07-27] MEDS: PANTOPRAZOLE 40 MG TABLET PO SCH (09:25)
[2019-07-27] MEDS: FUROSEMIDE 40 MG/4 ML VIAL IV SCH (09:25)
[2019-07-27] MEDS: NYSTATIN 500,000 UNIT/5 ML UDCUP SWISH/SWAL SCH ×4 (09:25→21:24)
[2019-07-27] MEDS: TIMOLOL 0.5% OPH SOLN 5 ML BOTTLE BOTH EYES SCH (09:26)
[2019-07-27] MEDS: INSULIN LISPRO 100 UNIT/ML SUBCUT SCH ×5 (09:26→23:20)
[2019-07-27] MEDS: FUROSEMIDE 40 MG TABLET PO SCH (16:42)
[2019-07-27] MEDS: INSULIN GLARGINE 100 UNIT/ML SUBCUT SCH (21:24)
[2019-07-27] MEDS: ZALEPLON 5 MG CAPSULE PO PRN (21:24)
[2019-07-27] MEDS: guaiFENesin/DM ER 600-30 MG TABLET PO PRN (21:24)
[2019-07-27] MEDS: ROSUVASTATIN 10 MG TABLET PO SCH (21:24)
[2019-07-28] MEDS: ONDANSETRON 4 MG/2 ML VIAL IV PRN ×3 (00:07→22:30)
[2019-07-28] MEDS: ALBUTEROL/IPRATROPIUM 3 ML NEB RESP TX SCH ×6 (02:26→23:52)
[2019-07-28 05:08] LABS: Basophils % 0.4 % (0.0-0.8); Eosinophils # 0.3 10*3/uL (0.0-0.87); Eosinophils % 3.2 % (0.00-10.9); Immature Granulocytes % 0.9 %; Immature Granulocytes Absolute 0.08 #; Lymphocytes # 1.4 10*3/uL (1.4-4.0); Lymphocytes % 16.6 % (21.3-54.2); Mean Corpuscular HGB Conc 28.2 GM/DL (32-36); Mean Corpuscular Volume 87.8 FL (87-102); Mean Platelet Volume 10.1 FL (9.6-12.0); Monocytes % 10.1 % (1.7-12.7); Neutrophils % 68.8 % (38.7-73.9); Platelet Count 232 T/CUMM (130-400); Red Blood Count 3.43 MC/CUMM (3.8-5.5); Red Cell Distribution Width 16.7 % (9.3-17.3); White Blood Count 8.4 T/CUMM (4-12)
[2019-07-28 05:26] LABS: Osmolality,Calculated 287.8 MOS/KG (273-304)
[2019-07-28 05:32] LABS: Hematocrit 29.7 VOL% (35.7-47.0); Hemoglobin 8.6 GM/DL (12.0-16.0)
[2019-07-28] MEDS: PANTOPRAZOLE 40 MG TABLET PO SCH (08:40)
[2019-07-28] MEDS: NYSTATIN 500,000 UNIT/5 ML UDCUP SWISH/SWAL SCH ×4 (08:40→22:30)
[2019-07-28] MEDS: FUROSEMIDE 40 MG TABLET PO SCH ×2 (08:40→16:07)
[2019-07-28] MEDS: atenoloL 50 MG TABLET PO SCH ×2 (08:40→22:29)
[2019-07-28] MEDS: INSULIN LISPRO 100 UNIT/ML SUBCUT SCH ×4 (08:41→22:31)
[2019-07-28] MEDS: TIMOLOL 0.5% OPH SOLN 5 ML BOTTLE BOTH EYES SCH (09:33)
[2019-07-28] MEDS: SUCRALFATE 1 GM/10 ML UDCUP PO SCH ×2 (11:46→16:08)
[2019-07-28] MEDS ORDERED: TUBERCULIN SKIN TEST 0.1 ML SYRINGE INTRADERM ONE (15:33)
[2019-07-28] MEDS: PROMETHAZINE 25 MG/1 ML VIAL IM PRN (18:05)
[2019-07-28] MEDS: DOCUSATE SODIUM 100 MG CAPSULE PO PRN ×2 (18:06→22:30)
[2019-07-28] MEDS ORDERED: SIMETHICONE CHEW 80 MG TABLET PO PRN (18:31)
[2019-07-28] MEDS: ZALEPLON 5 MG CAPSULE PO PRN (22:29)
[2019-07-28] MEDS: ROSUVASTATIN 10 MG TABLET PO SCH (22:29)
[2019-07-28] MEDS: INSULIN GLARGINE 100 UNIT/ML SUBCUT SCH (22:31)
[2019-07-28] MEDS: guaiFENesin/DM ER 600-30 MG TABLET PO PRN (22:35)
[2019-07-29] MEDS: ALBUTEROL/IPRATROPIUM 3 ML NEB RESP TX SCH ×5 (03:39→20:55)
[2019-07-29] MEDS: NYSTATIN 500,000 UNIT/5 ML UDCUP SWISH/SWAL SCH ×4 (08:51→20:26)
[2019-07-29] MEDS: PROMETHAZINE 25 MG/1 ML VIAL IM PRN (08:51)
[2019-07-29] MEDS: SUCRALFATE 1 GM/10 ML UDCUP PO SCH ×2 (08:51→15:55)
[2019-07-29] MEDS: INSULIN LISPRO 100 UNIT/ML SUBCUT SCH ×6 (08:51→20:29)
[2019-07-29] MEDS: FUROSEMIDE 40 MG TABLET PO SCH ×2 (08:52→15:53)
[2019-07-29] MEDS: PANTOPRAZOLE 40 MG TABLET PO SCH (08:52)
[2019-07-29] MEDS: atenoloL 50 MG TABLET PO SCH ×2 (08:52→20:26)
[2019-07-29] MEDS: TIMOLOL 0.5% OPH SOLN 5 ML BOTTLE BOTH EYES SCH (08:53)
[2019-07-29] MEDS: ALUMINUM/MAGNES/SIMETH MAX STR 30 ML UDCUP PO PRN (12:01)
[2019-07-29] MEDS: ONDANSETRON 4 MG/2 ML VIAL IV PRN ×2 (15:53→20:27)
[2019-07-29] MEDS: ROSUVASTATIN 10 MG TABLET PO SCH (20:26)
[2019-07-29] MEDS: INSULIN GLARGINE 100 UNIT/ML SUBCUT SCH (20:27)
[2019-07-30] MEDS: ALBUTEROL/IPRATROPIUM 3 ML NEB RESP TX SCH ×6 (01:51→19:15)
[2019-07-30] MEDS: ONDANSETRON 4 MG/2 ML VIAL IV PRN ×3 (03:46→21:01)
[2019-07-30] MEDS: NYSTATIN 500,000 UNIT/5 ML UDCUP SWISH/SWAL SCH ×4 (08:30→21:01)
[2019-07-30] MEDS: PANTOPRAZOLE 40 MG TABLET PO SCH (08:30)
[2019-07-30] MEDS: SUCRALFATE 1 GM/10 ML UDCUP PO SCH ×2 (08:30→17:06)
[2019-07-30] MEDS: TIMOLOL 0.5% OPH SOLN 5 ML BOTTLE BOTH EYES SCH (08:31)
[2019-07-30] MEDS: atenoloL 50 MG TABLET PO SCH ×2 (08:31→20:59)
[2019-07-30] MEDS: FUROSEMIDE 40 MG TABLET PO SCH ×2 (08:31→17:06)
[2019-07-30] MEDS: INSULIN LISPRO 100 UNIT/ML SUBCUT SCH ×8 (08:31→21:02)
[2019-07-30] MEDS: ALUMINUM/MAGNES/SIMETH MAX STR 30 ML UDCUP PO PRN (10:53)
[2019-07-30] MEDS: ROSUVASTATIN 10 MG TABLET PO SCH (21:01)
[2019-07-30] MEDS: INSULIN GLARGINE 100 UNIT/ML SUBCUT SCH (21:02)
[2019-07-30] MEDS: ZALEPLON 5 MG CAPSULE PO PRN (22:50)
[2019-07-31] MEDS: ALBUTEROL/IPRATROPIUM 3 ML NEB RESP TX SCH ×7 (00:05→23:45)
[2019-07-31 06:55] LABS: Calcium 8.7 MG/DL (8.5-10.1)
[2019-07-31 07:42] LABS: Basophils % 0.2 % (0.0-0.8); Eosinophils # 0.2 10*3/uL (0.0-0.87); Eosinophils % 2.1 % (0.00-10.9); Hematocrit 29.7 VOL% (35.7-47.0); Hemoglobin 8.6 GM/DL (12.0-16.0); Immature Granulocytes % 1.1 %; Immature Granulocytes Absolute 0.09 #; Lymphocytes # 1.5 10*3/uL (1.4-4.0); Lymphocytes % 18.1 % (21.3-54.2); Mean Corpuscular Volume 87.6 FL (87-102); Mean Platelet Volume 10.8 FL (9.6-12.0); Monocytes % 8.5 % (1.7-12.7); NRBC # 0.02 10*3/uL; Platelet Count 229 T/CUMM (130-400); Red Blood Count 3.39 MC/CUMM (3.8-5.5); Red Cell Distribution Width 16.4 % (9.3-17.3); White Blood Count 8.1 T/CUMM (4-12)
[2019-07-31] MEDS: CYANOCOBALAMIN 500 MCG TABLET PO SCH (08:46)
[2019-07-31] MEDS: INSULIN LISPRO 100 UNIT/ML SUBCUT SCH ×8 (08:46→20:55)
[2019-07-31] MEDS: atenoloL 50 MG TABLET PO SCH ×2 (08:46→20:56)
[2019-07-31] MEDS: PANTOPRAZOLE 40 MG TABLET PO SCH (08:46)
[2019-07-31] MEDS: NYSTATIN 500,000 UNIT/5 ML UDCUP SWISH/SWAL SCH ×4 (08:46→20:55)
[2019-07-31] MEDS: ALUMINUM/MAGNES/SIMETH MAX STR 30 ML UDCUP PO PRN (08:46)
[2019-07-31] MEDS: SUCRALFATE 1 GM/10 ML UDCUP PO SCH ×2 (08:46→16:38)
[2019-07-31] MEDS: FUROSEMIDE 40 MG TABLET PO SCH ×2 (08:46→16:38)
[2019-07-31] MEDS: TIMOLOL 0.5% OPH SOLN 5 ML BOTTLE BOTH EYES SCH (08:46)
[2019-07-31] MEDS ORDERED: INSULIN GLARGINE 100 UNIT/ML SUBCUT SCH (10:46)
[2019-07-31 11:30] LABS: Hypochromasia 4+
[2019-07-31 11:31] LABS: Microcytosis Slight; Ovalocytes Few; Platelet Estimate Normal; Schistocytes Slight
[2019-07-31] MEDS ORDERED: PROMETHAZINE 25 MG TABLET PO PRN (11:53)
[2019-07-31] MEDS ORDERED: POTASSIUM CHLORIDE 20 MEQ TABLET PO ONE (12:06)
[2019-07-31] MEDS: ROSUVASTATIN 10 MG TABLET PO SCH (20:54)
[2019-07-31] MEDS: ONDANSETRON 4 MG/2 ML VIAL IV PRN (20:57)
[2019-08-01] MEDS: ALBUTEROL/IPRATROPIUM 3 ML NEB RESP TX SCH ×3 (03:45→10:39)
[2019-08-01 05:15] LABS: Basophils % 0.2 % (0.0-0.8); Eosinophils # 0.1 10*3/uL (0.0-0.87); Eosinophils % 1.1 % (0.00-10.9); Hematocrit 31.9 VOL% (35.7-47.0); Hemoglobin 9.1 GM/DL (12.0-16.0); Immature Granulocytes % 1.2 %; Immature Granulocytes Absolute 0.12 #; Lymphocytes # 1.6 10*3/uL (1.4-4.0); Lymphocytes % 16.8 % (21.3-54.2); Mean Corpuscular HGB Conc 28.5 GM/DL (32-36); Mean Corpuscular Volume 88.6 FL (87-102); Mean Platelet Volume 11.9 FL (9.6-12.0); Monocytes % 7.4 % (1.7-12.7); NRBC # 0.02 10*3/uL; Neutrophils % 73.3 % (38.7-73.9); Platelet Count 197 T/CUMM (130-400); Red Cell Distribution Width 16.5 % (9.3-17.3); White Blood Count 9.8 T/CUMM (4-12)
[2019-08-01 05:23] LABS: Calcium 8.9 MG/DL (8.5-10.1); Osmolality,Calculated 293.7 MOS/KG (273-304)
[2019-08-01 05:30] LABS: Hypochromasia 1+; Ovalocytes Slight; Platelet Estimate Adequate
[2019-08-01 05:31] LABS: Microcytosis Slight
[2019-08-01] MEDS: NYSTATIN 500,000 UNIT/5 ML UDCUP SWISH/SWAL SCH ×2 (09:20→12:50)
[2019-08-01] MEDS: atenoloL 50 MG TABLET PO SCH (09:21)
[2019-08-01] MEDS: CYANOCOBALAMIN 500 MCG TABLET PO SCH (09:21)
[2019-08-01] MEDS: PANTOPRAZOLE 40 MG TABLET PO SCH (09:21)
[2019-08-01] MEDS: INSULIN LISPRO 100 UNIT/ML SUBCUT SCH ×4 (09:21→12:50)
[2019-08-01] MEDS: SUCRALFATE 1 GM/10 ML UDCUP PO SCH (09:22)
[2019-08-01] MEDS: FUROSEMIDE 40 MG TABLET PO SCH (09:24)
[2019-08-01] MEDS: TIMOLOL 0.5% OPH SOLN 5 ML BOTTLE BOTH EYES SCH (10:33)
[2019-08-01] MEDS ORDERED: INSULIN GLARGINE 100 UNIT/ML SUBCUT SCH (10:36)
[2019-08-01] MEDS ORDERED: ONDANSETRON 4 MG TABLET PO PRN (10:40)
[2019-08-01 12:28] VITALS: BP 122/53
[2019-08-02] MEDS ORDERED: LEVOFLOXACIN 500 MG TABLET PO SCH (09:00)
[2019-08-02] MEDS ORDERED: POTASSIUM CHLORIDE 20 MEQ TABLET PO SCH (09:00)
== END 2019-08-01 15:13 | disposition swing bed (61) | DRG 291 ==
LOC: EDBD → EDUNIT# → N.ED 12:39 → N.EDINP 16:40 → SUATTDRO 16:40 → N.5E 16:56
PROVIDERS: ADMIT Phlebology; ATTEND Hospitalist

== ENCOUNTER 2019-08-25 08:22 | Inpatient (IN) ==
[~2019-08-25 08:22] MED LIST: LACTATED RINGERS 1,000 ML IV SCH; ceFAZolin 1,000 MG VIAL ONE; ceFAZolin 1,000 MG in SYRINGE 1 EACH IV ONE
[2019-08-25] MEDS ORDERED: ONDANSETRON 4 MG/2 ML VIAL ONE ×3 (10:33→15:47)
[2019-08-25] MEDS ORDERED: ONDANSETRON 4 MG/2 ML VIAL IV ONE (10:34)
[2019-08-25] MEDS ORDERED: HEPARIN/NACL 0.9% 2 UNITS/ML 500 ML IV ONE (12:14)
[2019-08-25] MEDS ORDERED: SUGAMMADEX 200 MG/2 ML VIAL IV ONE (14:53)
[2019-08-25] MEDS ORDERED: HYDROmorphone 2 MG/1 ML VIAL ONE (15:35)
[2019-08-25] MEDS ORDERED: DEXTROSE 10% 250 ML BAG IV PRN (15:37)
[2019-08-25] MEDS ORDERED: GLUCAGON 1 MG VIAL IM PRN ×2 (15:37→18:29)
[2019-08-25] MEDS ORDERED: ONDANSETRON 4 MG/2 ML VIAL IV PRN (15:39)
[2019-08-25] MEDS ORDERED: propofoL 200 MG/20 ML VIAL IV ONE (15:46)
[2019-08-25] MEDS ORDERED: SODIUM CHLORIDE 0.9% 1,000 ML IV PRN ×2 (15:46→18:35)
[2019-08-25] MEDS ORDERED: DESFLURANE 1 UNIT/15 MINUTE INH ONE (15:46)
[2019-08-25] MEDS ORDERED: PHENYLEPHRINE DRIP 20 MG/250 ML PREMIX IV ONE (15:46)
[2019-08-25] MEDS ORDERED: fentaNYL 250 MCG/5 ML VIAL ONE (15:46)
[2019-08-25] MEDS ORDERED: LIDOCAINE 2% 5 ML VIAL ONE (15:46)
[2019-08-25] MEDS ORDERED: HYDROCORTISONE 100 MG VIAL ONE (15:47)
[2019-08-25] MEDS ORDERED: MIDAZOLAM 2 MG/2 ML VIAL ONE (15:47)
[2019-08-25] MEDS ORDERED: ROCURONIUM 100 MG/10 ML VIAL IV ONE (15:47)
[2019-08-25] MEDS ORDERED: PHENYLEPHRINE 1 MG/10 ML SYRINGE IV ONE (15:47)
[2019-08-25] MEDS ORDERED: SUCCINYLCHOLINE 200 MG/10 ML VIAL ONE (15:47)
[2019-08-25] MEDS ORDERED: LACTATED RINGERS 1,000 ML IV ONE (15:47)
[2019-08-25] MEDS: HYDROmorphone 2 MG/1 ML VIAL IV PRN ×3 (15:49→21:07)
[2019-08-25] MEDS ORDERED: ACETAMINOPHEN 325 MG TABLET PO PRN (16:20)
[2019-08-25] MEDS ORDERED: PROMETHAZINE 25 MG/1 ML VIAL IM PRN (16:20)
[2019-08-25] MEDS ORDERED: DEXTROSE 5% NACL 0.9% 1,000 ML IV SCH (16:20)
[2019-08-25] MEDS ORDERED: CARBOXYMETHYLCELLULOSE 1% OPH SOLN BOTH EYES PRN (16:20)
[2019-08-25] MEDS ORDERED: LABETALOL 20 MG/4 ML SYRINGE IV PRN (16:42)
[2019-08-25] MEDS ORDERED: amLODIPine 5 MG TABLET PO ONE (16:44)
[2019-08-25] MEDS: HYDROCORTISONE 100 MG VIAL IV SCH (17:53)
[2019-08-25] MEDS ORDERED: INSULIN REGULAR 100 UNIT/ML SUBCUT SCH (18:00)
[2019-08-25 18:12] LABS: Calcium 8.5 MG/DL (8.5-10.1)
[2019-08-25 18:16] LABS: Basophils % 0.1 % (0.0-0.8); Eosinophils % 0.2 % (0.00-10.9); Hematocrit 30.9 VOL% (35.7-47.0); Hemoglobin 8.8 GM/DL (12.0-16.0); Immature Granulocytes % 1.4 %; Immature Granulocytes Absolute 0.17 #; Lymphocytes % 8.2 % (21.3-54.2); Mean Corpuscular HGB Conc 28.5 GM/DL (32-36); Mean Corpuscular Volume 89.3 FL (87-102); Mean Platelet Volume 10.6 FL (9.6-12.0); Monocytes % 7.4 % (1.7-12.7); NRBC # 0.03 10*3/uL; Neutrophils % 82.7 % (38.7-73.9); Platelet Count 218 T/CUMM (130-400); Red Blood Count 3.46 MC/CUMM (3.8-5.5); Red Cell Distribution Width 17.8 % (9.3-17.3); White Blood Count 12.4 T/CUMM (4-12)
[2019-08-25 18:20] LABS: Anisocytosis 1+; Hypochromasia 1+; Microcytosis 1+; Platelet Estimate Normal
[2019-08-25 18:21] LABS: Ovalocytes Slight
[2019-08-25] MEDS ORDERED: DEXTROSE 50% 25 GM/50 ML VIAL IV PRN (18:29)
[2019-08-25] MEDS: METHOCARBAMOL INJ 500 MG in SODIUM CHLORIDE 0.9% 100 ML IV SCH (18:51)
[2019-08-25] MEDS ORDERED: FUROSEMIDE 20 MG/2 ML VIAL IV ONE (19:00)
[2019-08-25] MEDS ORDERED: ALBUTEROL 2.5 MG/3 ML NEB RESP TX PRN (19:00)
[2019-08-25] MEDS ORDERED: atenoloL 50 MG TABLET PO SCH (21:00)
[2019-08-25] MEDS: ONDANSETRON 4 MG/2 ML VIAL IV PRN (21:06)
[2019-08-25] MEDS: DOCUSATE SODIUM 100 MG CAPSULE PO SCH (21:22)
[2019-08-25] MEDS: ROSUVASTATIN 10 MG TABLET PO SCH (21:22)
[2019-08-25] MEDS: SUCRALFATE 1 GM TABLET PO SCH (21:22)
[2019-08-25] MEDS: INSULIN REGULAR 100 UNIT/ML SUBCUT SCH (21:23)
[2019-08-25] MEDS: INSULIN GLARGINE 100 UNIT/ML SUBCUT SCH (21:23)
[2019-08-26] MEDS: HYDROCORTISONE 100 MG VIAL IV SCH ×4 (00:34→21:14)
[2019-08-26] MEDS: HYDROmorphone 2 MG/1 ML VIAL IV PRN ×2 (01:35→05:52)
[2019-08-26] MEDS: METHOCARBAMOL INJ 500 MG in SODIUM CHLORIDE 0.9% 100 ML IV SCH ×3 (02:35→17:35)
[2019-08-26 06:02] LABS: Calcium 8.9 MG/DL (8.5-10.1)
[2019-08-26 06:25] LABS: Basophils % 0.1 % (0.0-0.8); Hematocrit 31.4 VOL% (35.7-47.0); Immature Granulocytes % 1.1 %; Immature Granulocytes Absolute 0.11 #; Lymphocytes # 1.2 10*3/uL (1.4-4.0); Lymphocytes % 12.1 % (21.3-54.2); Mean Corpuscular HGB Conc 28.7 GM/DL (32-36); Mean Corpuscular Volume 86.3 FL (87-102); Mean Platelet Volume 10.7 FL (9.6-12.0); Monocytes % 7.9 % (1.7-12.7); NRBC # 0.03 10*3/uL; Neutrophils % 78.8 % (38.7-73.9); Platelet Count 200 T/CUMM (130-400); Red Blood Count 3.64 MC/CUMM (3.8-5.5)
[2019-08-26 06:49] LABS: Hypochromasia 1+; Ovalocytes Slight; Platelet Estimate Adequate
[2019-08-26 06:50] LABS: Microcytosis Slight
[2019-08-26] MEDS: ONDANSETRON 4 MG/2 ML VIAL IV PRN ×3 (07:25→21:16)
[2019-08-26] MEDS ORDERED: FUROSEMIDE 40 MG/4 ML VIAL IV ONE (08:04)
[2019-08-26] MEDS: INSULIN REGULAR 100 UNIT/ML SUBCUT SCH ×4 (08:05→21:15)
[2019-08-26] MEDS ORDERED: FUROSEMIDE 40 MG/4 ML VIAL ONE (08:09)
[2019-08-26] MEDS: SUCRALFATE 1 GM TABLET PO SCH ×2 (08:23→21:15)
[2019-08-26] MEDS: AMIODARONE 200 MG TABLET PO SCH (08:23)
[2019-08-26] MEDS: PANTOPRAZOLE 40 MG TABLET PO SCH (08:24)
[2019-08-26] MEDS: DOCUSATE SODIUM 100 MG CAPSULE PO SCH ×2 (08:24→21:15)
[2019-08-26] MEDS: TIMOLOL 0.5% OPH SOLN 5 ML BOTTLE BOTH EYES SCH (08:26)
[2019-08-26] MEDS ORDERED: atenoloL 50 MG TABLET PO SCH (09:00)
[2019-08-26] MEDS ORDERED: POTASSIUM CHLORIDE 20 MEQ PACK PO SCH (11:30)
[2019-08-26] MEDS ORDERED: DEXTROSE 10% 250 ML BAG IV PRN (13:14)
[2019-08-26] MEDS ORDERED: GLUCAGON 1 MG VIAL IM PRN (13:14)
[2019-08-26] MEDS: ENOXAPARIN 40 MG/0.4 ML SYRINGE SUBCUT SCH (16:50)
[2019-08-26] MEDS: ROSUVASTATIN 10 MG TABLET PO SCH (21:13)
[2019-08-26] MEDS: INSULIN GLARGINE 100 UNIT/ML SUBCUT SCH (21:15)
[2019-08-26] MEDS ORDERED: ALUMINUM/MAGNES/SIMETH MAX STR 30 ML UDCUP PO PRN (22:19)
[2019-08-27] MEDS: METHOCARBAMOL INJ 500 MG in SODIUM CHLORIDE 0.9% 100 ML IV SCH ×3 (02:55→17:30)
[2019-08-27 06:14] LABS: Basophils % 0.1 % (0.0-0.8); Eosinophils % 0.1 % (0.00-10.9); Hematocrit 26.9 VOL% (35.7-47.0); Hemoglobin 7.9 GM/DL (12.0-16.0); Immature Granulocytes % 0.7 %; Immature Granulocytes Absolute 0.06 #; Lymphocytes # 1.2 10*3/uL (1.4-4.0); Lymphocytes % 13.7 % (21.3-54.2); Mean Corpuscular HGB Conc 29.4 GM/DL (32-36); Mean Corpuscular Volume 85.4 FL (87-102); Mean Platelet Volume 11.1 FL (9.6-12.0); Monocytes % 7.2 % (1.7-12.7); NRBC # 0.02 10*3/uL; Neutrophils % 78.2 % (38.7-73.9); Platelet Count 174 T/CUMM (130-400); Red Blood Count 3.15 MC/CUMM (3.8-5.5); Red Cell Distribution Width 18.2 % (9.3-17.3); White Blood Count 8.4 T/CUMM (4-12)
[2019-08-27 06:35] LABS: Calcium 8.2 MG/DL (8.5-10.1); Osmolality,Calculated 296.8 MOS/KG (273-304)
[2019-08-27] MEDS: HYDROCORTISONE 100 MG VIAL IV SCH ×3 (06:40→22:08)
[2019-08-27] MEDS: ONDANSETRON 4 MG/2 ML VIAL IV PRN ×2 (06:53→12:11)
[2019-08-27] MEDS: INSULIN REGULAR 100 UNIT/ML SUBCUT SCH ×4 (08:25→22:11)
[2019-08-27] MEDS: SUCRALFATE 1 GM/10 ML UDCUP PO SCH ×2 (08:25→16:16)
[2019-08-27] MEDS: FUROSEMIDE 40 MG/4 ML VIAL IV SCH (08:26)
[2019-08-27] MEDS: POTASSIUM CHLORIDE 20 MEQ TABLET PO SCH (08:26)
[2019-08-27] MEDS: DOCUSATE SODIUM 100 MG CAPSULE PO SCH ×2 (08:26→22:12)
[2019-08-27] MEDS: PANTOPRAZOLE 40 MG TABLET PO SCH (08:26)
[2019-08-27] MEDS: AMIODARONE 200 MG TABLET PO SCH (08:26)
[2019-08-27] MEDS: TIMOLOL 0.5% OPH SOLN 5 ML BOTTLE BOTH EYES SCH (08:27)
[2019-08-27] MEDS: atenoloL 25 MG TABLET PO SCH (08:27)
[2019-08-27] MEDS: POTASSIUM CHLORIDE RIDER 10 MEQ in PREMIX 1 EACH IV PRN ×2 (09:20→11:08)
[2019-08-27] MEDS: HYDROmorphone 2 MG/1 ML VIAL IV PRN ×2 (12:56→22:09)
[2019-08-27] MEDS: NYSTATIN 500,000 UNIT/5 ML UDCUP SWISH/SWAL SCH ×3 (13:23→22:10)
[2019-08-27] MEDS: ENOXAPARIN 40 MG/0.4 ML SYRINGE SUBCUT SCH (16:16)
[2019-08-27] MEDS: ZALEPLON 5 MG CAPSULE PO PRN (22:10)
[2019-08-27] MEDS: INSULIN GLARGINE 100 UNIT/ML SUBCUT SCH (22:10)
[2019-08-27] MEDS: ROSUVASTATIN 10 MG TABLET PO SCH (22:11)
[2019-08-28] MEDS: METHOCARBAMOL INJ 500 MG in SODIUM CHLORIDE 0.9% 100 ML IV SCH ×3 (02:50→18:48)
[2019-08-28] MEDS: ONDANSETRON 4 MG/2 ML VIAL IV PRN ×4 (04:45→21:27)
[2019-08-28] MEDS: HYDROmorphone 2 MG/1 ML VIAL IV PRN ×5 (04:46→21:24)
[2019-08-28 05:36] LABS: Basophils % 0.1 % (0.0-0.8); Eosinophils # 0.1 10*3/uL (0.0-0.87); Eosinophils % 0.9 % (0.00-10.9); Hematocrit 27.7 VOL% (35.7-47.0); Immature Granulocytes % 0.9 %; Immature Granulocytes Absolute 0.06 #; Lymphocytes # 1.1 10*3/uL (1.4-4.0); Lymphocytes % 16.4 % (21.3-54.2); Mean Corpuscular HGB Conc 28.2 GM/DL (32-36); Mean Corpuscular Volume 88.5 FL (87-102); Mean Platelet Volume 10.6 FL (9.6-12.0); NRBC # 0.02 10*3/uL; Neutrophils % 74.7 % (38.7-73.9); Platelet Count 164 T/CUMM (130-400); Red Blood Count 3.13 MC/CUMM (3.8-5.5); Red Cell Distribution Width 17.9 % (9.3-17.3); White Blood Count 6.8 T/CUMM (4-12)
[2019-08-28 06:00] LABS: Calcium 8.5 MG/DL (8.5-10.1); Osmolality,Calculated 296.3 MOS/KG (273-304)
[2019-08-28 06:19] LABS: Hemoglobin 7.8 GM/DL (12.0-16.0)
[2019-08-28 06:42] LABS: Anisocytosis 1+; Ovalocytes 1+; Platelet Estimate Normal; Tear Drop Cells Few
[2019-08-28] MEDS: HYDROCORTISONE 100 MG VIAL IV SCH ×3 (06:52→18:49)
[2019-08-28] MEDS: POTASSIUM CHLORIDE 20 MEQ TABLET PO SCH ×2 (09:17)
[2019-08-28] MEDS: INSULIN REGULAR 100 UNIT/ML SUBCUT SCH ×4 (09:17→21:30)
[2019-08-28] MEDS: DOCUSATE SODIUM 100 MG CAPSULE PO SCH ×2 (09:17→21:23)
[2019-08-28] MEDS: PANTOPRAZOLE 40 MG TABLET PO SCH (09:17)
[2019-08-28] MEDS: NYSTATIN 500,000 UNIT/5 ML UDCUP SWISH/SWAL SCH ×4 (09:17→21:23)
[2019-08-28] MEDS: AMIODARONE 200 MG TABLET PO SCH (09:17)
[2019-08-28] MEDS: atenoloL 25 MG TABLET PO SCH (09:18)
[2019-08-28] MEDS: FUROSEMIDE 40 MG/4 ML VIAL IV SCH (09:18)
[2019-08-28] MEDS: SUCRALFATE 1 GM/10 ML UDCUP PO SCH ×2 (10:23→16:06)
[2019-08-28] MEDS: TIMOLOL 0.5% OPH SOLN 5 ML BOTTLE BOTH EYES SCH (10:30)
[2019-08-28] MEDS ORDERED: SODIUM PHOSPHATE ENEMA 133 ML BOTTLE RECTAL PRN (11:17)
[2019-08-28] MEDS: POTASSIUM CHLORIDE RIDER 10 MEQ in PREMIX 1 EACH IV PRN ×3 (11:34→14:53)
[2019-08-28] MEDS: BISACODYL 10 MG SUPP RECTAL PRN ×2 (16:06→19:50)
[2019-08-28] MEDS: ENOXAPARIN 40 MG/0.4 ML SYRINGE SUBCUT SCH (16:06)
[2019-08-28] MEDS ORDERED: INSULIN GLARGINE 100 UNIT/ML SUBCUT SCH (21:00)
[2019-08-28] MEDS: ZALEPLON 5 MG CAPSULE PO PRN (21:23)
[2019-08-28] MEDS: ROSUVASTATIN 10 MG TABLET PO SCH (21:30)
[2019-08-29] MEDS: METHOCARBAMOL INJ 500 MG in SODIUM CHLORIDE 0.9% 100 ML IV SCH ×2 (02:22→12:15)
[2019-08-29] MEDS: HYDROmorphone 2 MG/1 ML VIAL IV PRN ×2 (03:17→08:46)
[2019-08-29] MEDS: ONDANSETRON 4 MG/2 ML VIAL IV PRN ×2 (03:20→08:46)
[2019-08-29] MEDS: HYDROCORTISONE 100 MG VIAL IV SCH (05:05)
[2019-08-29 06:03] LABS: % Iron Saturation 13.1 % (18-50)
[2019-08-29 06:06] LABS: Osmolality,Calculated 285.7 MOS/KG (273-304)
[2019-08-29 06:17] LABS: Folate 14.8 NG/ML (5.4-24.0)
[2019-08-29 06:30] LABS: Basophils % 0.1 % (0.0-0.8); Eosinophils # 0.2 10*3/uL (0.0-0.87); Eosinophils % 1.6 % (0.00-10.9); Hematocrit 29.5 VOL% (35.7-47.0); Hemoglobin 8.4 GM/DL (12.0-16.0); Immature Granulocytes % 0.9 %; Immature Granulocytes Absolute 0.08 #; Lymphocytes # 1.9 10*3/uL (1.4-4.0); Lymphocytes % 20.5 % (21.3-54.2); Mean Corpuscular HGB Conc 28.5 GM/DL (32-36); Mean Corpuscular Volume 86.5 FL (87-102); Mean Platelet Volume 10.6 FL (9.6-12.0); Monocytes % 7.1 % (1.7-12.7); NRBC # 0.02 10*3/uL; Neutrophils % 69.8 % (38.7-73.9); Platelet Count 192 T/CUMM (130-400); Red Blood Count 3.41 MC/CUMM (3.8-5.5); Red Cell Distribution Width 17.6 % (9.3-17.3); White Blood Count 9.3 T/CUMM (4-12)
[2019-08-29 06:32] LABS: Hypochromasia 1+; Ovalocytes Slight; Platelet Estimate Adequate
[2019-08-29] MEDS: INSULIN REGULAR 100 UNIT/ML SUBCUT SCH ×2 (08:47→12:16)
[2019-08-29] MEDS: atenoloL 25 MG TABLET PO SCH (09:35)
[2019-08-29] MEDS: NYSTATIN 500,000 UNIT/5 ML UDCUP SWISH/SWAL SCH ×2 (09:35→14:21)
[2019-08-29] MEDS: POTASSIUM CHLORIDE RIDER 10 MEQ in PREMIX 1 EACH IV SCH ×3 (09:35→12:57)
[2019-08-29] MEDS: PANTOPRAZOLE 40 MG TABLET PO SCH (09:35)
[2019-08-29] MEDS: AMIODARONE 200 MG TABLET PO SCH (09:35)
[2019-08-29] MEDS: SUCRALFATE 1 GM/10 ML UDCUP PO SCH (09:35)
[2019-08-29] MEDS: FUROSEMIDE 40 MG/4 ML VIAL IV SCH (09:35)
[2019-08-29] MEDS: POTASSIUM CHLORIDE 20 MEQ TABLET PO SCH (09:35)
[2019-08-29] MEDS: TIMOLOL 0.5% OPH SOLN 5 ML BOTTLE BOTH EYES SCH (09:35)
[2019-08-29] MEDS: DOCUSATE SODIUM 100 MG CAPSULE PO SCH (12:08)
[2019-08-29 12:25] VITALS: BP 118/72
[2019-08-29] MEDS ORDERED: INSULIN REGULAR 100 UNIT/ML SUBCUT ONE (13:44)
== END 2019-08-29 14:00 | disposition swing bed (61) | DRG 614 ==
LOC: N.SDSINP 08:22 → N.OR 08:22 → N.SDSINP 08:46 → N.ICU 16:20 → N.3E 08-26 11:25
PROVIDERS: ADMIT Student in an Organized Health Care Education/Training Program; ATTEND Student in an Organized Health Care Education/Training Program

== ENCOUNTER 2019-09-24 22:25 | Inpatient (IN) ==
[2019-09-24 22:41] LABS: ABG Base Excess -0.7 MMOL/L (-2.5-2.5); ABG HCO3 23.6 MMOL/L (20-26); ABG PCO2 33.1 MM HG (35-48); ABG PH 7.447 (7.35-7.45); ABG PO2 52.2 MM HG (80-95)
[2019-09-24] MEDS ORDERED: INSULIN REGULAR 100 UNIT/ML IV STA ×2 (22:41→23:17)
[2019-09-24] MEDS ORDERED: SODIUM CHLORIDE 0.9% 500 ML IV STA (22:42)
[2019-09-24 22:49] LABS: Basophils # 0.1 10*3/uL (0.0-0.2); Basophils % 0.5 % (0.0-0.8); Eosinophils # 0.2 10*3/uL (0.0-0.87); Eosinophils % 1.6 % (0.00-10.9); Hematocrit 32.7 VOL% (35.7-47.0); Hemoglobin 9.2 GM/DL (12.0-16.0); Immature Granulocytes % 1.3 %; Immature Granulocytes Absolute 0.18 #; Lymphocytes # 1.8 10*3/uL (1.4-4.0); Lymphocytes % 12.7 % (21.3-54.2); Mean Corpuscular HGB Conc 28.1 GM/DL (32-36); Mean Corpuscular Volume 87.2 FL (87-102); Mean Platelet Volume 10.9 FL (9.6-12.0); Monocytes % 9.1 % (1.7-12.7); NRBC # 0.05 10*3/uL; Neutrophils % 74.8 % (38.7-73.9); Platelet Count 358 T/CUMM (130-400); Red Blood Count 3.75 MC/CUMM (3.8-5.5); Red Cell Distribution Width 18.7 % (9.3-17.3); White Blood Count 13.9 T/CUMM (4-12)
[2019-09-24 23:03] LABS: INR 1.1
[2019-09-24 23:08] LABS: Apearance,Urine CLEAR (Clear); Bacteria,Urine Occasional /HPF (Few); Bilirubin,Urine Negative (Negative); Blood, Urine Negative (Negative); Glucose,Urine (UA) >=500 mg/dL (Negative); Hyaline Casts,Urine 4 /LPF (0-3); Ketones,Urine 20 mg/dL (Negative); Nitrite,Urine Negative (Negative); Protein,Urine Negative; RBC,Urine <1 /HPF (0-4); Squamous Epithelial Cell,Urine Occasional /HPF (0-10); Urine Color Yellow (Yellow); Urine Specific Gravity 1.021 (1.001-1.035); Urine Urobilinogen < 2.0 EU/DL (0.2-1.0); WBC,Urine 1 /HPF (0-6)
[2019-09-24 23:11] LABS: Alanine Aminotransferase 12 U/L (13-56); Albumin 2.5 G/DL (3.4-5.0); Alkaline Phosphatase 128 U/L (45-117); Aspartate Amino Transferase 21 U/L (0-37); Blood Urea Nitrogen 20 MG/DL (7-18); Calcium 9.1 MG/DL (8.5-10.1); Estimated Glom Filtration Rate 29 ML/MIN; Osmolality,Calculated 289.2 MOS/KG (273-304); Total Protein 6.4 G/DL (6.4-8.3); Troponin I 0.016 NG/ML (0.00-0.045)
[2019-09-24 23:15] LABS: Glucose 681 MG/DL (74-106)
[2019-09-24] MEDS ORDERED: cefTRIAXone 1,000 MG in SODIUM CHLORIDE 0.9% 100 ML IV STA (23:17)
[2019-09-24] MEDS ORDERED: ONDANSETRON 4 MG/2 ML VIAL IV STA (23:22)
[2019-09-24] MEDS ORDERED: FUROSEMIDE 100 MG/10 ML VIAL IV STA (23:41)
[2019-09-25] MEDS ORDERED: SODIUM CHLORIDE 0.9% 500 ML IV STA (01:40)
[2019-09-25] MEDS ORDERED: ONDANSETRON 4 MG/2 ML VIAL IV STA (02:48)
[2019-09-25] MEDS ORDERED: BISACODYL 10 MG SUPP RECTAL PRN (03:11)
[2019-09-25] MEDS ORDERED: SODIUM CHLORIDE 0.65% NASAL SPRAY 45 ML BOTTLE BOTH NARES PRN (03:11)
[2019-09-25] MEDS ORDERED: HydrOXYzine PAMOATE 25 MG CAPSULE PO PRN (03:11)
[2019-09-25] MEDS ORDERED: GLUCAGON 1 MG VIAL IM PRN (03:11)
[2019-09-25] MEDS ORDERED: CARBOXYMETHYLCELLULOSE 1% OPH SOLN BOTH EYES PRN (03:11)
[2019-09-25] MEDS ORDERED: guaiFENesin 200 MG/10 ML UDCUP PO PRN (03:11)
[2019-09-25] MEDS ORDERED: ACETAMINOPHEN 325 MG TABLET PO PRN (03:11)
[2019-09-25] MEDS ORDERED: ALUMINUM/MAGNES/SIMETH MAX STR 30 ML UDCUP PO PRN (03:11)
[2019-09-25] MEDS ORDERED: DEXTROSE 50% 25 GM/50 ML SYRINGE IV PRN (03:11)
[2019-09-25] MEDS ORDERED: MAGNESIUM HYDROXIDE SUSP 30 ML UDCUP PO PRN (03:11)
[2019-09-25] MEDS ORDERED: NITROGLYCERIN SL 0.4 MG TABLET SL PRN (03:11)
[2019-09-25] MEDS ORDERED: ENOXAPARIN 30 MG/0.3 ML SYRINGE SUBCUT SCH (04:00)
[2019-09-25 04:28] LABS: Platelet Estimate Adequate
[2019-09-25 05:42] LABS: Calcium 8.4 MG/DL (8.5-10.1); Osmolality,Calculated 284.7 MOS/KG (273-304)
[2019-09-25 06:03] LABS: Basophils % 0.4 % (0.0-0.8); Eosinophils # 0.2 10*3/uL (0.0-0.87); Eosinophils % 2.1 % (0.00-10.9); Hemoglobin 8.1 GM/DL (12.0-16.0); Immature Granulocytes % 0.9 %; Lymphocytes # 1.2 10*3/uL (1.4-4.0); Lymphocytes % 10.6 % (21.3-54.2); Mean Corpuscular HGB Conc 28.9 GM/DL (32-36); Mean Corpuscular Volume 84.1 FL (87-102); Mean Platelet Volume 11.2 FL (9.6-12.0); Monocytes % 8.1 % (1.7-12.7); Neutrophils % 77.9 % (38.7-73.9); Platelet Count 276 T/CUMM (130-400); Red Blood Count 3.33 MC/CUMM (3.8-5.5); Red Cell Distribution Width 18.7 % (9.3-17.3); White Blood Count 11.2 T/CUMM (4-12)
[2019-09-25 06:22] LABS: Anisocytosis 1+; Hypochromasia 1+; Microcytosis 1+; Platelet Estimate Adequate
[2019-09-25] MEDS ORDERED: FUROSEMIDE 40 MG/4 ML VIAL IV SCH (08:00)
[2019-09-25] MEDS ORDERED: HYDROCORTISONE PO SCH (09:00)
[2019-09-25] MEDS ORDERED: atenoloL 50 MG TABLET PO SCH (09:00)
[2019-09-25] MEDS ORDERED: APIXABAN 2.5 MG TABLET PO SCH (09:00)
[2019-09-25] MEDS: PANTOPRAZOLE 40 MG TABLET PO SCH (09:03)
[2019-09-25] MEDS: INSULIN LISPRO 100 UNIT/ML SUBCUT SCH ×4 (09:09→11:48)
[2019-09-25] MEDS: TIMOLOL 0.5% OPH SOLN 5 ML BOTTLE BOTH EYES SCH (09:10)
[2019-09-25] MEDS: ONDANSETRON 4 MG/2 ML VIAL IV PRN ×2 (09:14→19:32)
[2019-09-25] MEDS: PANTOPRAZOLE 40 MG VIAL IV SCH ×2 (09:21→21:53)
[2019-09-25] MEDS: POTASSIUM CHLORIDE 20 MEQ TABLET PO SCH ×2 (09:22→21:51)
[2019-09-25] MEDS: DOCUSATE SODIUM 100 MG CAPSULE PO SCH ×2 (09:42→21:51)
[2019-09-25] MEDS: NYSTATIN 500,000 UNIT/5 ML UDCUP SWISH/SWAL SCH ×4 (09:42→22:14)
[2019-09-25] MEDS: APIXABAN 2.5 MG TABLET PO SCH ×2 (09:42→21:52)
[2019-09-25] MEDS: busPIRone 5 MG TABLET PO SCH ×3 (09:43→22:15)
[2019-09-25] MEDS: SUCRALFATE 1 GM TABLET PO SCH ×2 (09:43→21:54)
[2019-09-25] MEDS: CYANOCOBALAMIN 500 MCG TABLET PO SCH (09:43)
[2019-09-25] MEDS: AMIODARONE 200 MG TABLET PO SCH (09:43)
[2019-09-25] MEDS: POTASSIUM CHLORIDE RIDER 10 MEQ in PREMIX 1 EACH IV PRN ×3 (09:53→15:59)
[2019-09-25] MEDS: AZITHROMYCIN 250 MG TABLET PO SCH (09:53)
[2019-09-25] MEDS ORDERED: MORPHINE 4 MG/1 ML VIAL IV PRN (11:25)
[2019-09-25] MEDS: ALBUTEROL 2.5 MG/3 ML NEB RESP TX PRN ×2 (13:20→13:39)
[2019-09-25] MEDS: CLOTRIMAZOLE/BETAMETHASONE CREAM 15 GM TUBE TOP SCH ×2 (13:23→22:15)
[2019-09-25] MEDS ORDERED: NOREPINEPHRINE 8 MG in SODIUM CHLORIDE 0.9% 242 ML IV PRN (13:26)
[2019-09-25] MEDS ORDERED: SODIUM CHLORIDE 0.9% 250 ML IV ONE (13:30)
[2019-09-25 13:42] LABS: ABG Base Excess 4.5 MMOL/L (-2.5-2.5); ABG HCO3 28.4 MMOL/L (20-26); ABG Oxygen Saturation 93.5 % (95-100); ABG PH 7.447 (7.35-7.45); ABG PO2 63.2 MM HG (80-95); ABG TCO2 26.7 MMOL/L (23-27); Allen Test Positive; Pt O2 Delivery Device Other
[2019-09-25] MEDS: SODIUM CHLORIDE 0.9% 1,000 ML IV SCH ×2 (13:49→22:16)
[2019-09-25] MEDS: INSULIN REGULAR DRIP 100 ML IV PRN (14:00)
[2019-09-25] MEDS: HYDROCORTISONE 100 MG VIAL IV SCH ×2 (15:57→21:54)
[2019-09-25] MEDS ORDERED: metroNIDAZOLE INJ 500 MG in PREMIX 1 EACH IV SCH (16:00)
[2019-09-25] MEDS ORDERED: SODIUM CHLORIDE 0.9% 100 ML IV ONE (17:12)
[2019-09-25] MEDS: HYDROmorphone 2 MG/1 ML VIAL IV PRN ×2 (17:14→21:52)
[2019-09-25] MEDS: PIPERACILLIN/TAZOBACTAM 3,375 MG in SODIUM CHLORIDE 0.9% 100 ML IV SCH (17:15)
[2019-09-25] MEDS: SIMETHICONE CHEW 80 MG TABLET PO PRN (19:31)
[2019-09-25] MEDS: ALBUTEROL/IPRATROPIUM 3 ML NEB RESP TX SCH ×2 (19:49→23:30)
[2019-09-25] MEDS ORDERED: cefTRIAXone 2,000 MG in SYRINGE 1 EACH IV SCH (21:00)
[2019-09-25] MEDS ORDERED: INSULIN GLARGINE 100 UNIT/ML SUBCUT SCH (21:00)
[2019-09-25] MEDS: ROSUVASTATIN 10 MG TABLET PO SCH (21:55)
[2019-09-26] MEDS: PIPERACILLIN/TAZOBACTAM 3,375 MG in SODIUM CHLORIDE 0.9% 100 ML IV SCH ×3 (00:57→17:30)
[2019-09-26] MEDS: INSULIN REGULAR DRIP 100 ML IV PRN ×3 (01:00→23:14)
[2019-09-26] MEDS: HYDROCORTISONE 100 MG VIAL IV SCH ×4 (03:08→21:53)
[2019-09-26] MEDS: ALBUTEROL/IPRATROPIUM 3 ML NEB RESP TX SCH ×5 (04:15→19:34)
[2019-09-26 04:33] LABS: Basophils % 0.2 % (0.0-0.8); Eosinophils % 0.3 % (0.00-10.9); Hematocrit 25.2 VOL% (35.7-47.0); Hemoglobin 7.2 GM/DL (12.0-16.0); Immature Granulocytes % 0.8 %; Immature Granulocytes Absolute 0.08 #; Lymphocytes # 0.9 10*3/uL (1.4-4.0); Lymphocytes % 9.1 % (21.3-54.2); Mean Corpuscular HGB Conc 28.6 GM/DL (32-36); Mean Corpuscular Volume 85.1 FL (87-102); Mean Platelet Volume 10.4 FL (9.6-12.0); Monocytes % 3.5 % (1.7-12.7); NRBC # 0.02 10*3/uL; Neutrophils % 86.1 % (38.7-73.9); Platelet Count 207 T/CUMM (130-400); Red Blood Count 2.96 MC/CUMM (3.8-5.5); Red Cell Distribution Width 18.4 % (9.3-17.3); White Blood Count 9.4 T/CUMM (4-12)
[2019-09-26] MEDS: HYDROmorphone 2 MG/1 ML VIAL IV PRN ×4 (04:40→21:37)
[2019-09-26 04:49] LABS: Calcium 7.8 MG/DL (8.5-10.1); Osmolality,Calculated 270.4 MOS/KG (273-304)
[2019-09-26 05:09] LABS: Hypochromasia 2+
[2019-09-26 05:10] LABS: Microcytosis 1+; Ovalocytes Slight; Platelet Estimate Adequate
[2019-09-26] MEDS: POTASSIUM CHLORIDE RIDER 10 MEQ in PREMIX 1 EACH IV PRN ×2 (06:12→08:48)
[2019-09-26] MEDS: DOCUSATE SODIUM 100 MG CAPSULE PO SCH ×2 (08:51→21:42)
[2019-09-26] MEDS: POTASSIUM CHLORIDE 20 MEQ TABLET PO SCH ×2 (08:52→21:42)
[2019-09-26] MEDS: APIXABAN 2.5 MG TABLET PO SCH ×2 (08:52→21:42)
[2019-09-26] MEDS: AMIODARONE 200 MG TABLET PO SCH (08:52)
[2019-09-26] MEDS: busPIRone 5 MG TABLET PO SCH ×3 (08:52→21:42)
[2019-09-26] MEDS: NYSTATIN 500,000 UNIT/5 ML UDCUP SWISH/SWAL SCH ×4 (08:52→21:42)
[2019-09-26] MEDS: SUCRALFATE 1 GM TABLET PO SCH ×2 (08:52→21:42)
[2019-09-26] MEDS: CYANOCOBALAMIN 500 MCG TABLET PO SCH (08:52)
[2019-09-26] MEDS: PANTOPRAZOLE 40 MG VIAL IV SCH ×2 (08:52→21:48)
[2019-09-26] MEDS: TIMOLOL 0.5% OPH SOLN 5 ML BOTTLE BOTH EYES SCH (08:56)
[2019-09-26] MEDS: PANTOPRAZOLE 40 MG TABLET PO SCH (08:56)
[2019-09-26] MEDS: CLOTRIMAZOLE/BETAMETHASONE CREAM 15 GM TUBE TOP SCH ×2 (08:56→21:48)
[2019-09-26] MEDS: SODIUM CHLORIDE 0.9% 1,000 ML IV SCH ×2 (08:57→17:30)
[2019-09-26] MEDS: AZITHROMYCIN 250 MG TABLET PO SCH (08:58)
[2019-09-26] MEDS: ONDANSETRON 4 MG/2 ML VIAL IV PRN ×3 (09:35→21:40)
[2019-09-26] MEDS: LEVOFLOXACIN INJ 500 MG in PREMIX 1 EACH IV SCH (10:30)
[2019-09-26] MEDS: LORazepam 2 MG/1 ML VIAL IV PRN ×2 (11:58→17:28)
[2019-09-26] MEDS: ROSUVASTATIN 10 MG TABLET PO SCH (21:42)
[2019-09-27] MEDS: ALBUTEROL/IPRATROPIUM 3 ML NEB RESP TX SCH ×6 (00:33→19:40)
[2019-09-27] MEDS: HYDROmorphone 2 MG/1 ML VIAL IV PRN ×5 (01:25→21:05)
[2019-09-27] MEDS: ONDANSETRON 4 MG/2 ML VIAL IV PRN ×4 (01:28→15:39)
[2019-09-27] MEDS: PIPERACILLIN/TAZOBACTAM 3,375 MG in SODIUM CHLORIDE 0.9% 100 ML IV SCH ×3 (01:29→17:38)
[2019-09-27] MEDS: HYDROCORTISONE 100 MG VIAL IV SCH ×3 (03:33→21:01)
[2019-09-27] MEDS: LORazepam 2 MG/1 ML VIAL IV PRN ×2 (03:35→14:24)
[2019-09-27] MEDS: SODIUM CHLORIDE 0.9% 1,000 ML IV SCH (03:39)
[2019-09-27 06:10] LABS: Basophils % 0.1 % (0.0-0.8); Eosinophils % 0.1 % (0.00-10.9); Hematocrit 23.1 VOL% (35.7-47.0); Hemoglobin 6.8 GM/DL (12.0-16.0); Immature Granulocytes % 1.1 %; Immature Granulocytes Absolute 0.11 #; Lymphocytes # 0.7 10*3/uL (1.4-4.0); Lymphocytes % 6.5 % (21.3-54.2); Mean Corpuscular HGB Conc 29.4 GM/DL (32-36); Mean Corpuscular Volume 84.9 FL (87-102); Mean Platelet Volume 10.5 FL (9.6-12.0); Monocytes % 4.6 % (1.7-12.7); NRBC # 0.03 10*3/uL; Neutrophils % 87.6 % (38.7-73.9); Platelet Count 172 T/CUMM (130-400); Red Blood Count 2.72 MC/CUMM (3.8-5.5); Red Cell Distribution Width 18.6 % (9.3-17.3)
[2019-09-27 06:29] LABS: Hypochromasia 2+; Microcytosis 1+; Osmolality,Calculated 279.8 MOS/KG (273-304)
[2019-09-27 06:30] LABS: Ovalocytes Few; Platelet Estimate Adequate; Polychromasia Slight
[2019-09-27] MEDS: NYSTATIN 500,000 UNIT/5 ML UDCUP SWISH/SWAL SCH ×4 (10:16→21:04)
[2019-09-27] MEDS: CYANOCOBALAMIN 500 MCG TABLET PO SCH (10:17)
[2019-09-27] MEDS: DOCUSATE SODIUM 100 MG CAPSULE PO SCH ×2 (10:17→21:04)
[2019-09-27] MEDS: AMIODARONE 200 MG TABLET PO SCH (10:17)
[2019-09-27] MEDS: AZITHROMYCIN 250 MG TABLET PO SCH (10:17)
[2019-09-27] MEDS: SUCRALFATE 1 GM TABLET PO SCH ×2 (10:17→21:06)
[2019-09-27] MEDS: CLOTRIMAZOLE/BETAMETHASONE CREAM 15 GM TUBE TOP SCH ×2 (10:18→21:22)
[2019-09-27] MEDS: APIXABAN 2.5 MG TABLET PO SCH ×2 (10:18→21:05)
[2019-09-27] MEDS: POTASSIUM CHLORIDE 20 MEQ TABLET PO SCH ×2 (10:18→21:04)
[2019-09-27] MEDS: busPIRone 5 MG TABLET PO SCH ×3 (10:18→22:43)
[2019-09-27] MEDS: PANTOPRAZOLE 40 MG VIAL IV SCH ×2 (10:18→21:22)
[2019-09-27] MEDS: LEVOFLOXACIN INJ 500 MG in PREMIX 1 EACH IV SCH (10:22)
[2019-09-27] MEDS: PANTOPRAZOLE 40 MG TABLET PO SCH (10:22)
[2019-09-27] MEDS: TIMOLOL 0.5% OPH SOLN 5 ML BOTTLE BOTH EYES SCH (10:23)
[2019-09-27] MEDS: POTASSIUM CHLORIDE RIDER 10 MEQ in PREMIX 1 EACH IV PRN ×2 (10:36→11:41)
[2019-09-27] MEDS: INSULIN GLARGINE 100 UNIT/ML SUBCUT SCH (11:43)
[2019-09-27] MEDS: INSULIN LISPRO 100 UNIT/ML SUBCUT SCH ×3 (11:43→21:23)
[2019-09-27] MEDS ORDERED: FUROSEMIDE 40 MG/4 ML VIAL IV ONE (13:39)
[2019-09-27] MEDS: ROSUVASTATIN 10 MG TABLET PO SCH (21:06)
[2019-09-28] MEDS: ALBUTEROL/IPRATROPIUM 3 ML NEB RESP TX SCH ×7 (00:01→23:45)
[2019-09-28] MEDS: ZALEPLON 5 MG CAPSULE PO PRN (01:14)
[2019-09-28] MEDS: INSULIN LISPRO 100 UNIT/ML SUBCUT SCH ×7 (01:14→23:58)
[2019-09-28] MEDS: PIPERACILLIN/TAZOBACTAM 3,375 MG in SODIUM CHLORIDE 0.9% 100 ML IV SCH ×3 (01:15→16:36)
[2019-09-28] MEDS: HYDROmorphone 2 MG/1 ML VIAL IV PRN (02:51)
[2019-09-28 05:59] LABS: Hematocrit 23.5 VOL% (35.7-47.0); Hemoglobin 6.7 GM/DL (12.0-16.0); Immature Granulocytes % 1.1 %; Immature Granulocytes Absolute 0.09 #; Lymphocytes # 0.7 10*3/uL (1.4-4.0); Lymphocytes % 8.6 % (21.3-54.2); Mean Corpuscular HGB Conc 28.5 GM/DL (32-36); Mean Corpuscular Volume 85.8 FL (87-102); Monocytes % 7.8 % (1.7-12.7); NRBC # 0.04 10*3/uL; Neutrophils % 82.5 % (38.7-73.9); Platelet Count 159 T/CUMM (130-400); Red Blood Count 2.74 MC/CUMM (3.8-5.5); Red Cell Distribution Width 18.9 % (9.3-17.3); White Blood Count 8.3 T/CUMM (4-12)
[2019-09-28 06:19] LABS: Anisocytosis 1+; Microcytosis 1+; Ovalocytes 1+; Platelet Estimate Normal
[2019-09-28 06:20] LABS: Calcium 7.9 MG/DL (8.5-10.1); Osmolality,Calculated 287.4 MOS/KG (273-304)
[2019-09-28] MEDS: LORazepam 2 MG/1 ML VIAL IV PRN ×2 (06:36→16:27)
[2019-09-28] MEDS ORDERED: MAGNESIUM SULF RIDER 2 GM in PREMIX 1 EACH IV PRN (08:44)
[2019-09-28] MEDS ORDERED: MAGNESIUM SULF RIDER 4 GM in PREMIX 1 EACH IV PRN (08:44)
[2019-09-28] MEDS: PANTOPRAZOLE 40 MG VIAL IV SCH ×2 (08:50→22:20)
[2019-09-28] MEDS: HYDROCORTISONE 100 MG VIAL IV SCH ×2 (08:54→22:21)
[2019-09-28] MEDS: SODIUM CHLORIDE 0.9% 1,000 ML IV SCH ×2 (08:57→09:03)
[2019-09-28] MEDS: busPIRone 5 MG TABLET PO SCH ×3 (08:58→22:22)
[2019-09-28] MEDS: AMIODARONE 200 MG TABLET PO SCH (08:58)
[2019-09-28] MEDS: DOCUSATE SODIUM 100 MG CAPSULE PO SCH ×2 (08:58→22:27)
[2019-09-28] MEDS: SUCRALFATE 1 GM TABLET PO SCH ×2 (08:58→22:22)
[2019-09-28] MEDS: APIXABAN 2.5 MG TABLET PO SCH ×2 (08:58→22:22)
[2019-09-28] MEDS: INSULIN GLARGINE 100 UNIT/ML SUBCUT SCH (08:59)
[2019-09-28] MEDS: POTASSIUM CHLORIDE 20 MEQ TABLET PO SCH ×3 (08:59→22:39)
[2019-09-28] MEDS: CLOTRIMAZOLE/BETAMETHASONE CREAM 15 GM TUBE TOP SCH ×2 (08:59→22:23)
[2019-09-28] MEDS: NYSTATIN 500,000 UNIT/5 ML UDCUP SWISH/SWAL SCH ×4 (08:59→22:23)
[2019-09-28] MEDS: LEVOFLOXACIN INJ 500 MG in PREMIX 1 EACH IV SCH (08:59)
[2019-09-28] MEDS: TIMOLOL 0.5% OPH SOLN 5 ML BOTTLE BOTH EYES SCH (09:00)
[2019-09-28] MEDS: CYANOCOBALAMIN 500 MCG TABLET PO SCH (09:00)
[2019-09-28] MEDS: PANTOPRAZOLE 40 MG TABLET PO SCH (09:01)
[2019-09-28] MEDS: FUROSEMIDE 40 MG/4 ML VIAL IV SCH ×2 (09:18→16:30)
[2019-09-28] MEDS ORDERED: SODIUM CHLORIDE 0.9% 1,000 ML IV PRN (13:57)
[2019-09-28] MEDS: ROSUVASTATIN 10 MG TABLET PO SCH (22:22)
[2019-09-29] MEDS: PIPERACILLIN/TAZOBACTAM 3,375 MG in SODIUM CHLORIDE 0.9% 100 ML IV SCH ×3 (04:29→17:48)
[2019-09-29] MEDS: INSULIN LISPRO 100 UNIT/ML SUBCUT SCH ×5 (04:41→21:09)
[2019-09-29 06:06] LABS: Basophils % 0.1 % (0.0-0.8); Eosinophils % 0.2 % (0.00-10.9); Hematocrit 31.3 VOL% (35.7-47.0); Hemoglobin 9.4 GM/DL (12.0-16.0); Immature Granulocytes % 1.6 %; Immature Granulocytes Absolute 0.15 #; Lymphocytes # 1.2 10*3/uL (1.4-4.0); Lymphocytes % 12.3 % (21.3-54.2); Mean Corpuscular Volume 84.6 FL (87-102); Mean Platelet Volume 10.7 FL (9.6-12.0); NRBC # 0.12 10*3/uL; Neutrophils % 75.8 % (38.7-73.9); Platelet Count 174 T/CUMM (130-400); Red Cell Distribution Width 18.1 % (9.3-17.3); White Blood Count 9.6 T/CUMM (4-12)
[2019-09-29 06:33] LABS: Calcium 8.2 MG/DL (8.5-10.1); Osmolality,Calculated 286.3 MOS/KG (273-304)
[2019-09-29] MEDS: ALBUTEROL/IPRATROPIUM 3 ML NEB RESP TX SCH ×5 (07:24→23:35)
[2019-09-29] MEDS: APIXABAN 2.5 MG TABLET PO SCH ×2 (09:00→21:08)
[2019-09-29] MEDS: CLOTRIMAZOLE/BETAMETHASONE CREAM 15 GM TUBE TOP SCH ×2 (09:00→21:26)
[2019-09-29] MEDS: FUROSEMIDE 40 MG/4 ML VIAL IV SCH ×2 (09:00→17:42)
[2019-09-29] MEDS: SUCRALFATE 1 GM TABLET PO SCH ×2 (09:00→21:08)
[2019-09-29] MEDS: NYSTATIN 500,000 UNIT/5 ML UDCUP SWISH/SWAL SCH ×4 (09:00→21:44)
[2019-09-29] MEDS: AMIODARONE 200 MG TABLET PO SCH (09:00)
[2019-09-29] MEDS: TIMOLOL 0.5% OPH SOLN 5 ML BOTTLE BOTH EYES SCH (09:00)
[2019-09-29] MEDS: POTASSIUM CHLORIDE 20 MEQ TABLET PO SCH ×3 (09:00→21:40)
[2019-09-29] MEDS: CYANOCOBALAMIN 500 MCG TABLET PO SCH (09:00)
[2019-09-29] MEDS: DOCUSATE SODIUM 100 MG CAPSULE PO SCH ×3 (09:00→21:29)
[2019-09-29] MEDS: busPIRone 5 MG TABLET PO SCH ×3 (09:00→21:08)
[2019-09-29] MEDS: PANTOPRAZOLE 40 MG VIAL IV SCH ×2 (09:04→20:17)
[2019-09-29] MEDS: HYDROCORTISONE 100 MG VIAL IV SCH (09:07)
[2019-09-29] MEDS: INSULIN GLARGINE 100 UNIT/ML SUBCUT SCH (09:30)
[2019-09-29] MEDS: ALBUTEROL 2.5 MG/3 ML NEB RESP TX PRN (19:40)
[2019-09-29] MEDS ORDERED: HYDROCORTISONE 100 MG VIAL IV SCH (21:00)
[2019-09-29] MEDS: ROSUVASTATIN 10 MG TABLET PO SCH (21:08)
[2019-09-30] MEDS: PIPERACILLIN/TAZOBACTAM 3,375 MG in SODIUM CHLORIDE 0.9% 100 ML IV SCH ×3 (00:48→16:45)
[2019-09-30] MEDS: ONDANSETRON 4 MG/2 ML VIAL IV PRN ×4 (00:56→20:25)
[2019-09-30] MEDS: INSULIN LISPRO 100 UNIT/ML SUBCUT SCH ×6 (03:10→20:40)
[2019-09-30] MEDS: ALBUTEROL/IPRATROPIUM 3 ML NEB RESP TX SCH ×7 (03:15→23:45)
[2019-09-30 05:32] LABS: Basophils % 0.2 % (0.0-0.8); Eosinophils % 0.3 % (0.00-10.9); Hematocrit 32.8 VOL% (35.7-47.0); Hemoglobin 10.2 GM/DL (12.0-16.0); Immature Granulocytes % 1.8 %; Immature Granulocytes Absolute 0.22 #; Lymphocytes # 1.6 10*3/uL (1.4-4.0); Lymphocytes % 12.8 % (21.3-54.2); Mean Corpuscular HGB Conc 31.1 GM/DL (32-36); Mean Corpuscular Volume 83.5 FL (87-102); Monocytes % 8.1 % (1.7-12.7); NRBC # 0.13 10*3/uL; Neutrophils % 76.8 % (38.7-73.9); Platelet Count 196 T/CUMM (130-400); Red Blood Count 3.93 MC/CUMM (3.8-5.5); White Blood Count 12.3 T/CUMM (4-12)
[2019-09-30 05:54] LABS: Calcium 8.5 MG/DL (8.5-10.1)
[2019-09-30] MEDS: HYDROCORTISONE 100 MG VIAL IV SCH ×2 (09:42→20:44)
[2019-09-30] MEDS: FUROSEMIDE 40 MG/4 ML VIAL IV SCH ×2 (09:43→16:45)
[2019-09-30] MEDS: PANTOPRAZOLE 40 MG VIAL IV SCH ×2 (09:43→20:26)
[2019-09-30] MEDS: INSULIN GLARGINE 100 UNIT/ML SUBCUT SCH (09:43)
[2019-09-30] MEDS: CYANOCOBALAMIN 500 MCG TABLET PO SCH (09:48)
[2019-09-30] MEDS: POTASSIUM CHLORIDE 20 MEQ TABLET PO SCH ×3 (09:48→21:22)
[2019-09-30] MEDS: DOCUSATE SODIUM 100 MG CAPSULE PO SCH (09:48)
[2019-09-30] MEDS: busPIRone 5 MG TABLET PO SCH ×3 (09:48→20:24)
[2019-09-30] MEDS: SUCRALFATE 1 GM TABLET PO SCH ×2 (09:48→20:24)
[2019-09-30] MEDS: NYSTATIN 500,000 UNIT/5 ML UDCUP SWISH/SWAL SCH ×4 (09:49→20:24)
[2019-09-30] MEDS: POTASSIUM CHLORIDE RIDER 10 MEQ in PREMIX 1 EACH IV SCH ×2 (09:49→12:02)
[2019-09-30] MEDS: TIMOLOL 0.5% OPH SOLN 5 ML BOTTLE BOTH EYES SCH (10:02)
[2019-09-30] MEDS: AMIODARONE 200 MG TABLET PO SCH (10:02)
[2019-09-30] MEDS: CLOTRIMAZOLE/BETAMETHASONE CREAM 15 GM TUBE TOP SCH ×2 (10:02→21:22)
[2019-09-30] MEDS: APIXABAN 2.5 MG TABLET PO SCH ×2 (10:02→20:24)
[2019-09-30] MEDS: atenoloL 25 MG TABLET PO SCH (12:37)
[2019-09-30] MEDS: POTASSIUM CHLORIDE RIDER 10 MEQ in PREMIX 1 EACH IV PRN ×3 (13:30→16:45)
[2019-09-30] MEDS ORDERED: DOCUSATE SODIUM 100 MG CAPSULE PO PRN (15:39)
[2019-09-30] MEDS: ROSUVASTATIN 10 MG TABLET PO SCH (20:24)
[2019-10-01] MEDS: INSULIN LISPRO 100 UNIT/ML SUBCUT SCH ×6 (00:59→21:00)
[2019-10-01] MEDS: PIPERACILLIN/TAZOBACTAM 3,375 MG in SODIUM CHLORIDE 0.9% 100 ML IV SCH ×3 (01:00→17:40)
[2019-10-01 03:22] LABS: Calcium 8.1 MG/DL (8.5-10.1); Osmolality,Calculated 284.3 MOS/KG (273-304)
[2019-10-01] MEDS: ALBUTEROL/IPRATROPIUM 3 ML NEB RESP TX SCH ×5 (03:35→20:15)
[2019-10-01 04:50] LABS: Basophils % 0.1 % (0.0-0.8); Eosinophils # 0.2 10*3/uL (0.0-0.87); Eosinophils % 1.7 % (0.00-10.9); Hematocrit 34.8 VOL% (35.7-47.0); Hemoglobin 10.4 GM/DL (12.0-16.0); Immature Granulocytes % 1.5 %; Immature Granulocytes Absolute 0.16 #; Lymphocytes # 1.3 10*3/uL (1.4-4.0); Lymphocytes % 11.7 % (21.3-54.2); Mean Corpuscular HGB Conc 29.9 GM/DL (32-36); Mean Corpuscular Volume 85.5 FL (87-102); Mean Platelet Volume 11.7 FL (9.6-12.0); Monocytes % 6.3 % (1.7-12.7); NRBC # 0.12 10*3/uL; Neutrophils % 78.7 % (38.7-73.9); Platelet Count 191 T/CUMM (130-400); Red Blood Count 4.07 MC/CUMM (3.8-5.5); Red Cell Distribution Width 19.2 % (9.3-17.3); White Blood Count 10.9 T/CUMM (4-12)
[2019-10-01] MEDS: ONDANSETRON 4 MG/2 ML VIAL IV PRN ×3 (06:34→18:17)
[2019-10-01] MEDS: HYDROCORTISONE 100 MG VIAL IV SCH ×2 (09:59→20:57)
[2019-10-01] MEDS: CLOTRIMAZOLE/BETAMETHASONE CREAM 15 GM TUBE TOP SCH ×2 (10:01→20:49)
[2019-10-01] MEDS: FUROSEMIDE 40 MG/4 ML VIAL IV SCH ×2 (10:03→17:39)
[2019-10-01] MEDS: NYSTATIN 500,000 UNIT/5 ML UDCUP SWISH/SWAL SCH ×4 (10:04→20:42)
[2019-10-01] MEDS: APIXABAN 2.5 MG TABLET PO SCH ×2 (10:04→20:42)
[2019-10-01] MEDS: SUCRALFATE 1 GM TABLET PO SCH ×2 (10:04→20:42)
[2019-10-01] MEDS: busPIRone 5 MG TABLET PO SCH ×3 (10:04→20:42)
[2019-10-01] MEDS: POTASSIUM CHLORIDE 20 MEQ TABLET PO SCH ×3 (10:04→20:41)
[2019-10-01] MEDS: PANTOPRAZOLE 40 MG VIAL IV SCH ×2 (10:05→20:49)
[2019-10-01] MEDS: atenoloL 25 MG TABLET PO SCH (10:05)
[2019-10-01] MEDS: AMIODARONE 200 MG TABLET PO SCH (10:05)
[2019-10-01] MEDS: INSULIN GLARGINE 100 UNIT/ML SUBCUT SCH (10:06)
[2019-10-01] MEDS: CYANOCOBALAMIN 500 MCG TABLET PO SCH (10:06)
[2019-10-01] MEDS: TIMOLOL 0.5% OPH SOLN 5 ML BOTTLE BOTH EYES SCH (10:09)
[2019-10-01] MEDS ORDERED: ALPRAZolam 0.25 MG TABLET PO ONE ×2 (11:03→23:07)
[2019-10-01] MEDS: ROSUVASTATIN 10 MG TABLET PO SCH (20:42)
[2019-10-02] MEDS: INSULIN LISPRO 100 UNIT/ML SUBCUT SCH ×6 (01:06→22:45)
[2019-10-02] MEDS: PIPERACILLIN/TAZOBACTAM 3,375 MG in SODIUM CHLORIDE 0.9% 100 ML IV SCH ×3 (01:38→17:17)
[2019-10-02] MEDS: ZALEPLON 5 MG CAPSULE PO PRN (01:42)
[2019-10-02] MEDS: ALBUTEROL/IPRATROPIUM 3 ML NEB RESP TX SCH ×6 (07:19→23:17)
[2019-10-02] MEDS: HYDROCORTISONE 100 MG VIAL IV SCH ×3 (08:38→22:16)
[2019-10-02] MEDS: NYSTATIN 500,000 UNIT/5 ML UDCUP SWISH/SWAL SCH ×4 (08:38→21:58)
[2019-10-02] MEDS: POTASSIUM CHLORIDE 20 MEQ TABLET PO SCH ×2 (08:39→21:59)
[2019-10-02] MEDS: APIXABAN 2.5 MG TABLET PO SCH ×2 (08:39→21:59)
[2019-10-02] MEDS: SUCRALFATE 1 GM TABLET PO SCH ×2 (08:39→21:59)
[2019-10-02] MEDS: CYANOCOBALAMIN 500 MCG TABLET PO SCH (08:39)
[2019-10-02] MEDS: atenoloL 25 MG TABLET PO SCH (08:39)
[2019-10-02] MEDS: AMIODARONE 200 MG TABLET PO SCH (08:39)
[2019-10-02] MEDS: PANTOPRAZOLE 40 MG VIAL IV SCH ×2 (08:40→21:58)
[2019-10-02] MEDS: FUROSEMIDE 40 MG/4 ML VIAL IV SCH ×2 (08:40→17:15)
[2019-10-02] MEDS: INSULIN GLARGINE 100 UNIT/ML SUBCUT SCH (08:42)
[2019-10-02] MEDS: CLOTRIMAZOLE/BETAMETHASONE CREAM 15 GM TUBE TOP SCH ×2 (08:48→21:58)
[2019-10-02] MEDS: TIMOLOL 0.5% OPH SOLN 5 ML BOTTLE BOTH EYES SCH (08:49)
[2019-10-02] MEDS: busPIRone 5 MG TABLET PO SCH ×3 (13:20→21:58)
[2019-10-02] MEDS: ONDANSETRON 4 MG/2 ML VIAL IV PRN (13:51)
[2019-10-02] MEDS: ROSUVASTATIN 10 MG TABLET PO SCH (21:58)
[2019-10-02] MEDS ORDERED: ALPRAZolam 0.25 MG TABLET PO PRN (22:44)
[2019-10-03] MEDS: INSULIN LISPRO 100 UNIT/ML SUBCUT SCH ×5 (01:26→17:10)
[2019-10-03] MEDS: PIPERACILLIN/TAZOBACTAM 3,375 MG in SODIUM CHLORIDE 0.9% 100 ML IV SCH (01:27)
[2019-10-03] MEDS: ALBUTEROL/IPRATROPIUM 3 ML NEB RESP TX SCH ×4 (03:40→15:12)
[2019-10-03] MEDS: CLOTRIMAZOLE/BETAMETHASONE CREAM 15 GM TUBE TOP SCH (09:20)
[2019-10-03] MEDS: NYSTATIN 500,000 UNIT/5 ML UDCUP SWISH/SWAL SCH ×3 (09:20→17:10)
[2019-10-03] MEDS: AMIODARONE 200 MG TABLET PO SCH (09:20)
[2019-10-03] MEDS: atenoloL 25 MG TABLET PO SCH (09:20)
[2019-10-03] MEDS: POTASSIUM CHLORIDE 20 MEQ TABLET PO SCH (09:20)
[2019-10-03] MEDS: INSULIN GLARGINE 100 UNIT/ML SUBCUT SCH (09:20)
[2019-10-03] MEDS: APIXABAN 2.5 MG TABLET PO SCH (09:20)
[2019-10-03] MEDS: busPIRone 5 MG TABLET PO SCH ×2 (09:21→15:45)
[2019-10-03] MEDS: HYDROCORTISONE 100 MG VIAL IV SCH (09:21)
[2019-10-03] MEDS: SUCRALFATE 1 GM TABLET PO SCH (09:21)
[2019-10-03] MEDS: CYANOCOBALAMIN 500 MCG TABLET PO SCH (09:21)
[2019-10-03] MEDS: TIMOLOL 0.5% OPH SOLN 5 ML BOTTLE BOTH EYES SCH (09:22)
[2019-10-03] MEDS: FUROSEMIDE 40 MG/4 ML VIAL IV SCH ×2 (09:23→17:10)
[2019-10-03] MEDS: PANTOPRAZOLE 40 MG VIAL IV SCH (09:23)
[2019-10-03 09:48] LABS: Calcium 8.3 MG/DL (8.5-10.1); Osmolality,Calculated 276.8 MOS/KG (273-304)
[2019-10-03] MEDS: ONDANSETRON 4 MG/2 ML VIAL IV PRN ×2 (10:15→15:45)
[2019-10-03] MEDS: SIMETHICONE CHEW 80 MG TABLET PO PRN (13:30)
[2019-10-03] MEDS ORDERED: GLUCAGON 1 MG VIAL IM PRN (14:28)
[2019-10-03] MEDS ORDERED: DEXTROSE 50% 25 GM/50 ML VIAL IV PRN (14:28)
[2019-10-03] MEDS ORDERED: DEXTROSE 10% 250 ML BAG IV PRN (14:31)
[2019-10-03 17:40] VITALS: BP 143/76
[2019-10-04] MEDS ORDERED: PANTOPRAZOLE 40 MG TABLET PO SCH (09:00)
[2019-10-04] MEDS ORDERED: HYDROCORTISONE 100 MG VIAL IV SCH (09:00)
== END 2019-10-03 17:41 | DRG 189 ==
LOC: N.ED 22:25 → SUATTDRO 09-25 02:05 → N.EDINP 09-25 02:05 → N.ICU 09-25 03:27 → N.5E 09-27 16:41 → N.TELEN 10-01 12:15
PROVIDERS: ADMIT Internal Medicine; ATTEND Internal Medicine

== ENCOUNTER 2019-11-01 13:20 | Inpatient (IN) ==
[2019-11-01] MEDS ORDERED: PANTOPRAZOLE 40 MG VIAL IV STA (13:43)
[2019-11-01] MEDS ORDERED: ONDANSETRON 4 MG/2 ML VIAL IV STA (13:43)
[2019-11-01 15:49] LABS: Apearance,Urine CLEAR (Clear); Bilirubin,Urine Negative (Negative); Blood, Urine Negative (Negative); Glucose,Urine (UA) 150 mg/dL (Negative); Hyaline Casts,Urine 12 /LPF (0-3); Ketones,Urine Negative (Negative); Nitrite,Urine Negative (Negative); Protein,Urine Negative; RBC,Urine 1 /HPF (0-4); Squamous Epithelial Cell,Urine Occasional /HPF (0-10); Urine Color Yellow (Yellow); Urine Specific Gravity 1.009 (1.001-1.035); Urine Urobilinogen < 2.0 EU/DL (0.2-1.0); WBC,Urine 5 /HPF (0-6)
[2019-11-01 16:09] LABS: Bilirubin,Total 0.5 MG/DL (0.2-1.0); Calcium 9.3 MG/DL (8.5-10.1); Osmolality,Calculated 284.9 MOS/KG (273-304); Total Protein 6.9 G/DL (6.4-8.3)
[2019-11-01 16:13] LABS: Basophils % 0.1 % (0.0-0.8); Eosinophils % 0.1 % (0.00-10.9); Hematocrit 32.2 VOL% (35.7-47.0); Immature Granulocytes % 1.1 %; Immature Granulocytes Absolute 0.19 #; Lymphocytes # 1.8 10*3/uL (1.4-4.0); Lymphocytes % 10.6 % (21.3-54.2); Mean Platelet Volume 11.4 FL (9.6-12.0); NRBC # 0.03 10*3/uL; Neutrophils % 86.1 % (38.7-73.9); Platelet Count 475 T/CUMM (130-400); Red Cell Distribution Width 16.7 % (9.3-17.3); White Blood Count 16.8 T/CUMM (4-12)
[2019-11-01 16:16] LABS: Anisocytosis Slight; Ferritin 41.1 ng/ml (8-252); Microcytosis Slight; Platelet Estimate Increased; Polychromasia Few; Troponin I 0.016 NG/ML (0.00-0.045)
[2019-11-01 16:18] LABS: INR 1.1; PT Patient Result 11.4 SECS (9.8-11.9); Partial Thromboplastin Time 25.1 SECS (23.9-33.8)
[2019-11-01] MEDS ORDERED: GLUCAGON 1 MG VIAL IM PRN (18:49)
[2019-11-01] MEDS ORDERED: DOCUSATE SODIUM 100 MG CAPSULE PO PRN (18:49)
[2019-11-01] MEDS ORDERED: BISACODYL 5 MG TABLET PO PRN (18:49)
[2019-11-01] MEDS ORDERED: DEXTROSE 10% 250 ML BAG IV PRN (18:49)
[2019-11-01] MEDS ORDERED: DEXTROSE 50% 25 GM/50 ML VIAL IV PRN (18:49)
[2019-11-01] MEDS ORDERED: ENOXAPARIN 40 MG/0.4 ML SYRINGE SUBCUT SCH (19:00)
[2019-11-01] MEDS: INSULIN GLARGINE 100 UNIT/ML SUBCUT SCH (22:56)
[2019-11-01] MEDS: APIXABAN 2.5 MG TABLET PO SCH (22:57)
[2019-11-01] MEDS: atenoloL 50 MG TABLET PO SCH (22:57)
[2019-11-01] MEDS: INSULIN REGULAR 100 UNIT/ML SUBCUT SCH (22:57)
[2019-11-01] MEDS: ATORVASTATIN 20 MG TABLET PO SCH (22:57)
[2019-11-01] MEDS: NYSTATIN 500,000 UNIT/5 ML UDCUP SWISH/SWAL SCH (22:57)
[2019-11-01] MEDS: SUCRALFATE 1 GM TABLET PO SCH (22:57)
[2019-11-01] MEDS: busPIRone 5 MG TABLET PO SCH (22:57)
[2019-11-01] MEDS: MORPHINE 4 MG/1 ML VIAL IV PRN (22:58)
[2019-11-02] MEDS: MORPHINE 4 MG/1 ML VIAL IV PRN ×3 (02:51→21:53)
[2019-11-02] MEDS: cefTRIAXone 1,000 MG in SYRINGE 1 EACH IV SCH (02:51)
[2019-11-02 07:40] LABS: Basophils % 0.1 % (0.0-0.8); Eosinophils # 0.1 10*3/uL (0.0-0.87); Eosinophils % 0.4 % (0.00-10.9); Hematocrit 27.5 VOL% (35.7-47.0); Immature Granulocytes % 0.9 %; Immature Granulocytes Absolute 0.15 #; Lymphocytes # 3.4 10*3/uL (1.4-4.0); Lymphocytes % 20.5 % (21.3-54.2); Mean Corpuscular HGB Conc 29.1 GM/DL (32-36); Mean Corpuscular Volume 83.6 FL (87-102); Mean Platelet Volume 11.8 FL (9.6-12.0); Monocytes % 7.1 % (1.7-12.7); NRBC # 0.06 10*3/uL; Platelet Count 389 T/CUMM (130-400); Red Blood Count 3.29 MC/CUMM (3.8-5.5); Red Cell Distribution Width 16.5 % (9.3-17.3); White Blood Count 16.4 T/CUMM (4-12)
[2019-11-02 09:04] LABS: Calcium 9.1 MG/DL (8.5-10.1); Osmolality,Calculated 287.2 MOS/KG (273-304); Risk Ratio 2.46
[2019-11-02] MEDS: SUCRALFATE 1 GM TABLET PO SCH ×4 (09:13→21:52)
[2019-11-02] MEDS: CYANOCOBALAMIN 500 MCG TABLET PO SCH (09:14)
[2019-11-02] MEDS: predniSONE 20 MG TABLET PO SCH (09:14)
[2019-11-02] MEDS: atenoloL 50 MG TABLET PO SCH ×2 (09:16→21:51)
[2019-11-02] MEDS: AMIODARONE 200 MG TABLET PO SCH (09:16)
[2019-11-02] MEDS: NYSTATIN 500,000 UNIT/5 ML UDCUP SWISH/SWAL SCH ×4 (09:17→21:52)
[2019-11-02] MEDS: APIXABAN 2.5 MG TABLET PO SCH ×2 (09:17→21:52)
[2019-11-02] MEDS: INSULIN REGULAR 100 UNIT/ML SUBCUT SCH ×4 (09:17→21:52)
[2019-11-02] MEDS: TIMOLOL 0.5% OPH SOLN 5 ML BOTTLE BOTH EYES SCH (09:18)
[2019-11-02] MEDS: busPIRone 5 MG TABLET PO SCH ×3 (09:18→21:51)
[2019-11-02] MEDS: PANTOPRAZOLE 40 MG TABLET PO SCH (09:18)
[2019-11-02] MEDS: FUROSEMIDE 40 MG TABLET PO SCH (09:18)
[2019-11-02 10:51] LABS: % Iron Saturation 7.5 % (18-50)
[2019-11-02] MEDS: IRON SUCROSE 200 MG in SODIUM CHLORIDE 0.9% 100 ML IV SCH ×2 (16:11→16:41)
[2019-11-02] MEDS ORDERED: ALBUTEROL/IPRATROPIUM 3 ML NEB RESP TX PRN (21:09)
[2019-11-02] MEDS: ALPRAZolam 0.25 MG TABLET PO PRN (21:51)
[2019-11-02] MEDS: SIMETHICONE CHEW 80 MG TABLET PO PRN (21:51)
[2019-11-02] MEDS: ATORVASTATIN 20 MG TABLET PO SCH (21:51)
[2019-11-02] MEDS: ONDANSETRON 4 MG/2 ML VIAL IV PRN (21:53)
[2019-11-02] MEDS: INSULIN GLARGINE 100 UNIT/ML SUBCUT SCH (23:49)
[2019-11-03] MEDS: cefTRIAXone 1,000 MG in SYRINGE 1 EACH IV SCH (03:24)
[2019-11-03 08:49] LABS: Calcium 8.9 MG/DL (8.5-10.1); Osmolality,Calculated 284.1 MOS/KG (273-304)
[2019-11-03] MEDS: NYSTATIN 500,000 UNIT/5 ML UDCUP SWISH/SWAL SCH ×4 (09:09→22:44)
[2019-11-03] MEDS: atenoloL 50 MG TABLET PO SCH ×2 (09:11→22:45)
[2019-11-03] MEDS: busPIRone 5 MG TABLET PO SCH ×3 (09:11→22:44)
[2019-11-03] MEDS: predniSONE 20 MG TABLET PO SCH (09:12)
[2019-11-03] MEDS: AMIODARONE 200 MG TABLET PO SCH (09:12)
[2019-11-03] MEDS: PANTOPRAZOLE 40 MG TABLET PO SCH (09:12)
[2019-11-03] MEDS: CYANOCOBALAMIN 500 MCG TABLET PO SCH (09:12)
[2019-11-03] MEDS: FUROSEMIDE 40 MG TABLET PO SCH (09:12)
[2019-11-03] MEDS: SUCRALFATE 1 GM TABLET PO SCH ×4 (09:12→22:44)
[2019-11-03] MEDS: TIMOLOL 0.5% OPH SOLN 5 ML BOTTLE BOTH EYES SCH (09:13)
[2019-11-03] MEDS: INSULIN REGULAR 100 UNIT/ML SUBCUT SCH ×4 (09:13→22:45)
[2019-11-03] MEDS: APIXABAN 2.5 MG TABLET PO SCH ×2 (09:13→22:44)
[2019-11-03] MEDS: IRON SUCROSE 200 MG in SODIUM CHLORIDE 0.9% 100 ML IV SCH (09:38)
[2019-11-03] MEDS: MORPHINE 4 MG/1 ML VIAL IV PRN (11:09)
[2019-11-03] MEDS: AZITHROMYCIN 250 MG TABLET PO SCH (14:43)
[2019-11-03] MEDS: ATORVASTATIN 20 MG TABLET PO SCH (22:44)
[2019-11-03] MEDS: ALPRAZolam 0.25 MG TABLET PO PRN (22:44)
[2019-11-03] MEDS: INSULIN GLARGINE 100 UNIT/ML SUBCUT SCH (22:45)
[2019-11-04] MEDS: cefTRIAXone 1,000 MG in SYRINGE 1 EACH IV SCH (02:43)
[2019-11-04] MEDS: busPIRone 5 MG TABLET PO SCH ×3 (09:18→21:28)
[2019-11-04] MEDS: SIMETHICONE CHEW 80 MG TABLET PO PRN ×2 (09:18→21:31)
[2019-11-04] MEDS: FUROSEMIDE 40 MG TABLET PO SCH (09:18)
[2019-11-04] MEDS: SUCRALFATE 1 GM TABLET PO SCH ×4 (09:18→21:19)
[2019-11-04] MEDS: CYANOCOBALAMIN 500 MCG TABLET PO SCH (09:18)
[2019-11-04] MEDS: atenoloL 50 MG TABLET PO SCH ×2 (09:18→21:19)
[2019-11-04] MEDS: PANTOPRAZOLE 40 MG TABLET PO SCH (09:18)
[2019-11-04] MEDS: AMIODARONE 200 MG TABLET PO SCH (09:18)
[2019-11-04] MEDS: APIXABAN 2.5 MG TABLET PO SCH ×2 (09:18→21:15)
[2019-11-04] MEDS: predniSONE 20 MG TABLET PO SCH (09:18)
[2019-11-04] MEDS: NYSTATIN 500,000 UNIT/5 ML UDCUP SWISH/SWAL SCH ×4 (09:21→21:15)
[2019-11-04] MEDS: INSULIN REGULAR 100 UNIT/ML SUBCUT SCH ×4 (09:24→21:13)
[2019-11-04] MEDS: TIMOLOL 0.5% OPH SOLN 5 ML BOTTLE BOTH EYES SCH (09:25)
[2019-11-04] MEDS: IRON SUCROSE 200 MG in SODIUM CHLORIDE 0.9% 100 ML IV SCH (11:19)
[2019-11-04] MEDS: guaiFENesin 200 MG/10 ML UDCUP PO PRN ×2 (11:20→21:19)
[2019-11-04] MEDS: ONDANSETRON 4 MG/2 ML VIAL IV PRN (11:20)
[2019-11-04 12:31] LABS: Apearance,Urine CLEAR (Clear); Bacteria,Urine Occasional /HPF (Few); Bilirubin,Urine Negative (Negative); Blood, Urine Negative (Negative); Glucose,Urine (UA) Negative (Negative); Hyaline Casts,Urine 8 /LPF (0-3); Ketones,Urine Negative (Negative); Nitrite,Urine Negative (Negative); Protein,Urine Negative; Urine Color Yellow (Yellow); Urine Specific Gravity 1.012 (1.001-1.035); Urine Urobilinogen < 2.0 EU/DL (0.2-1.0); WBC,Urine <1 /HPF (0-6)
[2019-11-04] MEDS: ALUMINUM/MAGNES/SIMETH MAX STR 30 ML UDCUP PO PRN (20:09)
[2019-11-04] MEDS: INSULIN GLARGINE 100 UNIT/ML SUBCUT SCH (21:11)
[2019-11-04] MEDS: ALPRAZolam 0.25 MG TABLET PO PRN (21:21)
[2019-11-04] MEDS: ATORVASTATIN 20 MG TABLET PO SCH (21:21)
[2019-11-05] MEDS: guaiFENesin 200 MG/10 ML UDCUP PO PRN ×4 (02:14→21:29)
[2019-11-05] MEDS: ONDANSETRON 4 MG/2 ML VIAL IV PRN (09:53)
[2019-11-05] MEDS: SIMETHICONE CHEW 80 MG TABLET PO PRN ×2 (09:54→21:30)
[2019-11-05] MEDS: AMIODARONE 200 MG TABLET PO SCH (09:54)
[2019-11-05] MEDS: PANTOPRAZOLE 40 MG TABLET PO SCH (09:54)
[2019-11-05] MEDS: NYSTATIN 500,000 UNIT/5 ML UDCUP SWISH/SWAL SCH ×4 (09:54→21:29)
[2019-11-05] MEDS: MORPHINE 4 MG/1 ML VIAL IV PRN (09:54)
[2019-11-05] MEDS: FUROSEMIDE 40 MG TABLET PO SCH (09:55)
[2019-11-05] MEDS: AZITHROMYCIN 250 MG TABLET PO SCH (09:55)
[2019-11-05] MEDS: APIXABAN 2.5 MG TABLET PO SCH ×2 (09:55→21:31)
[2019-11-05] MEDS: CYANOCOBALAMIN 500 MCG TABLET PO SCH (09:55)
[2019-11-05] MEDS: busPIRone 5 MG TABLET PO SCH ×3 (09:55→21:31)
[2019-11-05] MEDS: SUCRALFATE 1 GM TABLET PO SCH ×4 (09:55→21:31)
[2019-11-05] MEDS: atenoloL 50 MG TABLET PO SCH ×2 (09:55→21:30)
[2019-11-05] MEDS: predniSONE 20 MG TABLET PO SCH (09:55)
[2019-11-05] MEDS: TIMOLOL 0.5% OPH SOLN 5 ML BOTTLE BOTH EYES SCH (10:12)
[2019-11-05] MEDS: INSULIN REGULAR 100 UNIT/ML SUBCUT SCH ×4 (10:12→21:28)
[2019-11-05] MEDS: INSULIN GLARGINE 100 UNIT/ML SUBCUT SCH (21:27)
[2019-11-05] MEDS: ATORVASTATIN 20 MG TABLET PO SCH (21:31)
[2019-11-05] MEDS: HydrOXYzine PAMOATE 25 MG CAPSULE PO PRN (21:31)
[2019-11-05] MEDS: ALUMINUM/MAGNES/SIMETH MAX STR 30 ML UDCUP PO PRN (21:31)
[2019-11-06] MEDS: guaiFENesin 200 MG/10 ML UDCUP PO PRN ×3 (02:45→20:33)
[2019-11-06] MEDS: SUCRALFATE 1 GM TABLET PO SCH ×4 (09:31→20:34)
[2019-11-06] MEDS: INSULIN REGULAR 100 UNIT/ML SUBCUT SCH ×4 (09:31→20:34)
[2019-11-06] MEDS: atenoloL 50 MG TABLET PO SCH ×2 (09:32→20:34)
[2019-11-06] MEDS: predniSONE 20 MG TABLET PO SCH (09:32)
[2019-11-06] MEDS: CYANOCOBALAMIN 500 MCG TABLET PO SCH (09:32)
[2019-11-06] MEDS: FUROSEMIDE 40 MG TABLET PO SCH (09:32)
[2019-11-06] MEDS: APIXABAN 2.5 MG TABLET PO SCH ×2 (09:32→20:33)
[2019-11-06] MEDS: NYSTATIN 500,000 UNIT/5 ML UDCUP SWISH/SWAL SCH ×4 (09:32→20:33)
[2019-11-06] MEDS: AMIODARONE 200 MG TABLET PO SCH (09:32)
[2019-11-06] MEDS: PANTOPRAZOLE 40 MG TABLET PO SCH (09:33)
[2019-11-06] MEDS: busPIRone 5 MG TABLET PO SCH ×3 (09:40→20:33)
[2019-11-06] MEDS: TIMOLOL 0.5% OPH SOLN 5 ML BOTTLE BOTH EYES SCH (09:42)
[2019-11-06] MEDS: ATORVASTATIN 20 MG TABLET PO SCH (20:33)
[2019-11-06] MEDS: ALPRAZolam 0.25 MG TABLET PO PRN (20:33)
[2019-11-06] MEDS: ALUMINUM/MAGNES/SIMETH MAX STR 30 ML UDCUP PO PRN (20:33)
[2019-11-06] MEDS: SIMETHICONE CHEW 80 MG TABLET PO PRN (20:34)
[2019-11-06] MEDS: INSULIN GLARGINE 100 UNIT/ML SUBCUT SCH (20:52)
[2019-11-07] MEDS: busPIRone 5 MG TABLET PO SCH ×3 (09:24→21:14)
[2019-11-07] MEDS: INSULIN REGULAR 100 UNIT/ML SUBCUT SCH ×4 (09:24→21:15)
[2019-11-07] MEDS: NYSTATIN 500,000 UNIT/5 ML UDCUP SWISH/SWAL SCH ×4 (09:24→21:14)
[2019-11-07] MEDS: FUROSEMIDE 40 MG TABLET PO SCH (09:24)
[2019-11-07] MEDS: SUCRALFATE 1 GM TABLET PO SCH ×4 (09:24→21:13)
[2019-11-07] MEDS: PANTOPRAZOLE 40 MG TABLET PO SCH (09:24)
[2019-11-07] MEDS: AZITHROMYCIN 250 MG TABLET PO SCH (09:25)
[2019-11-07] MEDS: atenoloL 50 MG TABLET PO SCH ×2 (09:25→21:26)
[2019-11-07] MEDS: CYANOCOBALAMIN 500 MCG TABLET PO SCH (09:25)
[2019-11-07] MEDS: predniSONE 20 MG TABLET PO SCH (09:25)
[2019-11-07] MEDS: AMIODARONE 200 MG TABLET PO SCH (09:25)
[2019-11-07] MEDS: TIMOLOL 0.5% OPH SOLN 5 ML BOTTLE BOTH EYES SCH (09:25)
[2019-11-07] MEDS: APIXABAN 2.5 MG TABLET PO SCH (09:27)
[2019-11-07] MEDS: MORPHINE 4 MG/1 ML VIAL IV PRN (09:34)
[2019-11-07] MEDS: ONDANSETRON 4 MG/2 ML VIAL IV PRN (09:37)
[2019-11-07 09:48] LABS: Basophils % 0.1 % (0.0-0.8); Eosinophils % 0.1 % (0.00-10.9); Hematocrit 24.8 VOL% (35.7-47.0); Immature Granulocytes % 1.4 %; Lymphocytes # 3.4 10*3/uL (1.4-4.0); Lymphocytes % 23.9 % (21.3-54.2); Mean Corpuscular HGB Conc 28.2 GM/DL (32-36); Mean Corpuscular Volume 88.6 FL (87-102); Mean Platelet Volume 11.2 FL (9.6-12.0); Monocytes % 3.3 % (1.7-12.7); NRBC # 0.18 10*3/uL; Neutrophils % 71.2 % (38.7-73.9); Platelet Count 279 T/CUMM (130-400); White Blood Count 14.1 T/CUMM (4-12)
[2019-11-07 10:03] LABS: Calcium 8.9 MG/DL (8.5-10.1); Osmolality,Calculated 265.9 MOS/KG (273-304)
[2019-11-07 10:14] LABS: Anisocytosis 1+; Microcytosis 1+
[2019-11-07 10:15] LABS: Hypochromasia 1+; Ovalocytes Slight; Platelet Estimate Normal; Polychromasia Slight
[2019-11-07] MEDS ORDERED: POLYETHYLENE GLYCOL POWDER 17 GM PACK PO SCH (12:00)
[2019-11-07 15:32] LABS: Hematocrit 26.1 VOL% (35.7-47.0); Hemoglobin 7.3 GM/DL (12.0-16.0)
[2019-11-07 20:55] LABS: Hematocrit 26.4 VOL% (35.7-47.0); Hemoglobin 7.4 GM/DL (12.0-16.0)
[2019-11-07] MEDS: SIMETHICONE CHEW 80 MG TABLET PO PRN (21:13)
[2019-11-07] MEDS: INSULIN GLARGINE 100 UNIT/ML SUBCUT SCH (21:14)
[2019-11-07] MEDS: ATORVASTATIN 20 MG TABLET PO SCH (21:14)
[2019-11-07] MEDS: DESITIN 4OZ/NYSTATIN 15 GRAM MIXTURE PASTE TOP SCH (21:24)
[2019-11-08] MEDS: guaiFENesin 200 MG/10 ML UDCUP PO PRN ×3 (00:13→16:48)
[2019-11-08 03:06] LABS: Hematocrit 24.7 VOL% (35.7-47.0); Hemoglobin 6.9 GM/DL (12.0-16.0)
[2019-11-08 03:31] LABS: Albumin 2.2 G/DL (3.4-5.0); Bilirubin,Total 0.4 MG/DL (0.2-1.0); Calcium 8.7 MG/DL (8.5-10.1); Osmolality,Calculated 272.7 MOS/KG (273-304); Total Protein 5.7 G/DL (6.4-8.3)
[2019-11-08] MEDS: ONDANSETRON 4 MG/2 ML VIAL IV PRN ×2 (03:31→09:18)
[2019-11-08] MEDS: INSULIN REGULAR 100 UNIT/ML SUBCUT SCH ×4 (08:56→21:29)
[2019-11-08] MEDS: busPIRone 5 MG TABLET PO SCH ×3 (08:56→21:13)
[2019-11-08] MEDS: SUCRALFATE 1 GM TABLET PO SCH ×4 (08:56→21:13)
[2019-11-08] MEDS: SIMETHICONE CHEW 80 MG TABLET PO PRN (08:56)
[2019-11-08] MEDS: CYANOCOBALAMIN 500 MCG TABLET PO SCH (08:56)
[2019-11-08] MEDS: PANTOPRAZOLE 40 MG TABLET PO SCH ×2 (08:57→21:14)
[2019-11-08] MEDS: predniSONE 20 MG TABLET PO SCH (08:57)
[2019-11-08] MEDS: AMIODARONE 200 MG TABLET PO SCH (09:01)
[2019-11-08] MEDS: DESITIN 4OZ/NYSTATIN 15 GRAM MIXTURE PASTE TOP SCH ×2 (09:13→21:14)
[2019-11-08] MEDS: FUROSEMIDE 40 MG TABLET PO SCH (09:14)
[2019-11-08] MEDS: NYSTATIN 500,000 UNIT/5 ML UDCUP SWISH/SWAL SCH ×4 (09:14→21:12)
[2019-11-08] MEDS: TIMOLOL 0.5% OPH SOLN 5 ML BOTTLE BOTH EYES SCH (09:16)
[2019-11-08] MEDS: SODIUM CHLORIDE 0.9% 1,000 ML IV SCH ×2 (11:25→18:35)
[2019-11-08] MEDS: ATORVASTATIN 20 MG TABLET PO SCH (21:13)
[2019-11-08] MEDS: INSULIN GLARGINE 100 UNIT/ML SUBCUT SCH (21:29)
[2019-11-09] MEDS: guaiFENesin 200 MG/10 ML UDCUP PO PRN (01:42)
[2019-11-09] MEDS ORDERED: LACTATED RINGERS 1,000 ML IV SCH (08:00)
[2019-11-09] MEDS: INSULIN REGULAR 100 UNIT/ML SUBCUT SCH ×4 (08:41→21:58)
[2019-11-09 09:16] LABS: Eosinophils % 0.1 % (0.00-10.9); Hematocrit 23.6 VOL% (35.7-47.0); Hemoglobin 6.7 GM/DL (12.0-16.0); Immature Granulocytes % 1.9 %; Immature Granulocytes Absolute 0.27 #; Lymphocytes # 3.6 10*3/uL (1.4-4.0); Lymphocytes % 24.9 % (21.3-54.2); Mean Corpuscular HGB Conc 28.4 GM/DL (32-36); Mean Corpuscular Volume 89.7 FL (87-102); Mean Platelet Volume 11.3 FL (9.6-12.0); Monocytes % 2.4 % (1.7-12.7); NRBC # 0.19 10*3/uL; Neutrophils % 70.7 % (38.7-73.9); Platelet Count 235 T/CUMM (130-400); Red Blood Count 2.63 MC/CUMM (3.8-5.5); Red Cell Distribution Width 22.2 % (9.3-17.3); White Blood Count 14.3 T/CUMM (4-12)
[2019-11-09 09:31] LABS: Hypochromasia 2+; Platelet Estimate Adequate
[2019-11-09 09:32] LABS: Microcytosis 1+
[2019-11-09] MEDS ORDERED: SODIUM CHLORIDE 0.9% 1,000 ML IV PRN (10:29)
[2019-11-09] MEDS: SUCRALFATE 1 GM TABLET PO SCH ×4 (10:56→22:04)
[2019-11-09] MEDS: AMIODARONE 200 MG TABLET PO SCH (10:56)
[2019-11-09] MEDS: busPIRone 5 MG TABLET PO SCH ×3 (10:56→22:04)
[2019-11-09] MEDS: DESITIN 4OZ/NYSTATIN 15 GRAM MIXTURE PASTE TOP SCH ×2 (10:57→22:10)
[2019-11-09] MEDS: FUROSEMIDE 40 MG TABLET PO SCH (10:57)
[2019-11-09] MEDS: PANTOPRAZOLE 40 MG TABLET PO SCH ×3 (10:57→22:10)
[2019-11-09] MEDS: NYSTATIN 500,000 UNIT/5 ML UDCUP SWISH/SWAL SCH ×4 (10:57→22:10)
[2019-11-09] MEDS: predniSONE 20 MG TABLET PO SCH (10:57)
[2019-11-09] MEDS: TIMOLOL 0.5% OPH SOLN 5 ML BOTTLE BOTH EYES SCH (10:58)
[2019-11-09] MEDS: CYANOCOBALAMIN 500 MCG TABLET PO SCH (10:58)
[2019-11-09] MEDS: AZITHROMYCIN 250 MG TABLET PO SCH (10:58)
[2019-11-09] MEDS: methylPREDNISolone SOD SUC 40 MG/1 ML VIAL IV SCH ×2 (15:00→22:06)
[2019-11-09 15:31] LABS: Troponin I 0.055 NG/ML (0.00-0.045)
[2019-11-09] MEDS: APIXABAN 2.5 MG TABLET PO SCH (21:32)
[2019-11-09] MEDS: INSULIN GLARGINE 100 UNIT/ML SUBCUT SCH (21:58)
[2019-11-09] MEDS: ATORVASTATIN 20 MG TABLET PO SCH (22:03)
[2019-11-09 22:57] LABS: Hematocrit 32.9 VOL% (35.7-47.0); Hemoglobin 10.3 GM/DL (12.0-16.0)
[2019-11-09 23:15] LABS: Calcium 7.9 MG/DL (8.5-10.1); Osmolality,Calculated 272.7 MOS/KG (273-304)
[2019-11-10] MEDS: HydrOXYzine PAMOATE 25 MG CAPSULE PO PRN ×2 (00:17→22:00)
[2019-11-10 05:00] LABS: Basophils % 0.1 % (0.0-0.8); Eosinophils % 0.1 % (0.00-10.9); Hematocrit 35.2 VOL% (35.7-47.0); Immature Granulocytes % 2.9 %; Immature Granulocytes Absolute 0.44 #; Lymphocytes # 1.6 10*3/uL (1.4-4.0); Lymphocytes % 10.3 % (21.3-54.2); Mean Corpuscular HGB Conc 31.3 GM/DL (32-36); Mean Corpuscular Volume 88.2 FL (87-102); Mean Platelet Volume 11.2 FL (9.6-12.0); Monocytes % 1.4 % (1.7-12.7); NRBC # 0.15 10*3/uL; Neutrophils % 85.2 % (38.7-73.9); Platelet Count 194 T/CUMM (130-400); Red Blood Count 3.99 MC/CUMM (3.8-5.5); Red Cell Distribution Width 19.3 % (9.3-17.3); White Blood Count 15.4 T/CUMM (4-12)
[2019-11-10 05:19] LABS: Calcium 8.5 MG/DL (8.5-10.1); Osmolality,Calculated 271.8 MOS/KG (273-304)
[2019-11-10] MEDS: methylPREDNISolone SOD SUC 40 MG/1 ML VIAL IV SCH (05:56)
[2019-11-10] MEDS: busPIRone 5 MG TABLET PO SCH ×3 (10:07→22:03)
[2019-11-10] MEDS: PANTOPRAZOLE 40 MG TABLET PO SCH ×3 (10:07→22:00)
[2019-11-10] MEDS: SUCRALFATE 1 GM TABLET PO SCH ×4 (10:07→22:01)
[2019-11-10] MEDS: NYSTATIN 500,000 UNIT/5 ML UDCUP SWISH/SWAL SCH ×4 (10:07→22:00)
[2019-11-10] MEDS: INSULIN REGULAR 100 UNIT/ML SUBCUT SCH ×4 (10:07→22:01)
[2019-11-10] MEDS: CYANOCOBALAMIN 500 MCG TABLET PO SCH (10:07)
[2019-11-10] MEDS: DESITIN 4OZ/NYSTATIN 15 GRAM MIXTURE PASTE TOP SCH ×2 (10:08→22:00)
[2019-11-10] MEDS: TIMOLOL 0.5% OPH SOLN 5 ML BOTTLE BOTH EYES SCH (10:08)
[2019-11-10] MEDS: MORPHINE 4 MG/1 ML VIAL IV PRN ×2 (12:05→21:59)
[2019-11-10] MEDS: guaiFENesin 200 MG/10 ML UDCUP PO PRN (14:15)
[2019-11-10] MEDS: SIMETHICONE CHEW 80 MG TABLET PO PRN (14:15)
[2019-11-10] MEDS: INSULIN GLARGINE 100 UNIT/ML SUBCUT SCH (22:01)
[2019-11-11] MEDS: MORPHINE 4 MG/1 ML VIAL IV PRN ×7 (07:25→20:17)
[2019-11-11] MEDS: ONDANSETRON 4 MG/2 ML VIAL IV PRN ×2 (07:25→17:26)
[2019-11-11] MEDS: SUCRALFATE 1 GM TABLET PO SCH ×4 (07:26→21:20)
[2019-11-11] MEDS: INSULIN REGULAR 100 UNIT/ML SUBCUT SCH ×4 (08:01→21:20)
[2019-11-11] MEDS: atenoloL 50 MG TABLET PO SCH ×2 (09:02→21:20)
[2019-11-11] MEDS: busPIRone 5 MG TABLET PO SCH ×3 (09:02→21:20)
[2019-11-11] MEDS: CYANOCOBALAMIN 500 MCG TABLET PO SCH (09:02)
[2019-11-11] MEDS: PANTOPRAZOLE 40 MG TABLET PO SCH ×2 (09:03→21:20)
[2019-11-11] MEDS: AZITHROMYCIN 250 MG TABLET PO SCH (09:03)
[2019-11-11] MEDS: NYSTATIN 500,000 UNIT/5 ML UDCUP SWISH/SWAL SCH ×4 (09:03→21:20)
[2019-11-11] MEDS: DESITIN 4OZ/NYSTATIN 15 GRAM MIXTURE PASTE TOP SCH ×2 (09:04→21:20)
[2019-11-11] MEDS: TIMOLOL 0.5% OPH SOLN 5 ML BOTTLE BOTH EYES SCH (09:04)
[2019-11-11] MEDS: guaiFENesin 200 MG/10 ML UDCUP PO PRN ×2 (10:00→17:54)
[2019-11-11] MEDS: SIMETHICONE CHEW 80 MG TABLET PO PRN ×2 (10:00→17:25)
[2019-11-11] MEDS: predniSONE 20 MG TABLET PO SCH (17:55)
[2019-11-11] MEDS: HydrOXYzine PAMOATE 25 MG CAPSULE PO PRN (21:20)
[2019-11-11] MEDS: INSULIN GLARGINE 100 UNIT/ML SUBCUT SCH (21:20)
[2019-11-12] MEDS: MORPHINE 4 MG/1 ML VIAL IV PRN ×5 (06:10→17:10)
[2019-11-12] MEDS: SUCRALFATE 1 GM TABLET PO SCH ×4 (10:12→21:51)
[2019-11-12] MEDS: INSULIN REGULAR 100 UNIT/ML SUBCUT SCH ×4 (10:13→21:51)
[2019-11-12] MEDS: DESITIN 4OZ/NYSTATIN 15 GRAM MIXTURE PASTE TOP SCH ×3 (10:17→21:51)
[2019-11-12] MEDS: predniSONE 20 MG TABLET PO SCH (10:17)
[2019-11-12] MEDS: PANTOPRAZOLE 40 MG TABLET PO SCH ×2 (10:17→21:51)
[2019-11-12] MEDS: NYSTATIN 500,000 UNIT/5 ML UDCUP SWISH/SWAL SCH ×4 (10:17→21:51)
[2019-11-12] MEDS: busPIRone 5 MG TABLET PO SCH ×3 (10:17→21:51)
[2019-11-12] MEDS: TIMOLOL 0.5% OPH SOLN 5 ML BOTTLE BOTH EYES SCH ×2 (10:18→10:19)
[2019-11-12] MEDS: atenoloL 50 MG TABLET PO SCH ×2 (10:18→21:51)
[2019-11-12] MEDS: CYANOCOBALAMIN 500 MCG TABLET PO SCH (10:18)
[2019-11-12] MEDS: INSULIN GLARGINE 100 UNIT/ML SUBCUT SCH (21:51)
[2019-11-13 00:17] VITALS: BP 81/47
== END 2019-11-13 01:02 | disposition expired | DRG 196 ==
LOC: EDBD → EDUNIT# → N.ED 13:20 → SUATTDRO 18:49 → N.EDINP 18:49 → N.TELEN 19:45
PROVIDERS: ADMIT Internal Medicine; ATTEND Internal Medicine